=== PATIENT | female | born 1950 | race Caucasian/White ===

== ENCOUNTER 2020-06-28 14:56 | Outpatient (CLI) | payer MEDICARE, SELFPAY ==
--- NOTE | ~2020-06-28 | MM_ITS ---
EXAMINATION: MM screening arleth BI w [facility]ia HISTORY: Screening TECHNIQUE: Craniocaudal and mediolateral oblique 3-D tomosynthesis images were obtained and synthetic 2-D images were generated. CAD analysis was submitted and interpreted. COMPARISON: 05/28/2017 BREAST PARENCHYMAL COMPOSITION: There are scattered areas of fibroglandular density. FINDINGS: There is no evidence of suspicious mass, calcification, or architectural distortion to sugg est malignancy in either breast. There has been no suspicious interval change. IMPRESSION: 1. No mammographic evidence of malignancy. 2. Recommend routine screening mammography in one year. BI-RADS Category 1: Negative Reviewed, dictated and finalized at location D. ER AND TRIMMER
== END 2020-06-28 14:57 | disposition home or self-care (01) ==
PROVIDERS: PCP Physician Assistant; Visit Provider Physician Assistant
DX: Z12.31 Encounter for screening mammogram for malignant neoplasm of breast (principal)
CPT/HCPCS: 77063; 77067

== ENCOUNTER → 2020-07-03 10:21 | Outpatient (CLI) | payer MEDICARE, SELFPAY ==
--- NOTE | ~2020-07-03 | XR_ITS ---
EXAMINATION: HAND-ANDREA ARTHRITIS 3+VIEWS DATE: 07/03/2020 11:41 INDICATION: Osteoarthritis. Rheumatoid arthritis. TECHNIQUE: Posteroanterior, lateral, and oblique views of the left and of the right hands as well as a ballcatchers view of both hands were obtained. COMPARISON: Left wrist radiographs dated 06/25/2018 FINDINGS: Diffuse osteopenia. Again seen is a left proximal row carpectomy with resection of the trapezium, allison ate and proximal pole of the scaphoid. No fractures. Moderate severity polyarticular osteoarthritis a t the bilateral hands and wrists characterized by nonuniform joint space narrowing and marginal osteo phytes. This involves the bilateral triscaphe, first carpometacarpal and multiple metacarpophalangeal and interphalangeal joints. Bilaterally there is palmar subluxation at the second metacarpophalangea l joints, mild on the left and moderate severity on the right. Periarticular erosion at the medial he ad of the left third metacarpal, at the dorsal/radial side of the proximal pole of the scaphoid and a t the tip of the left ulnar styloid process. Subarticular lucencies with thin sclerotic margins on th e right at the dorsal aspect of the distal right radius, proximal aspect of the triquetrum and distal pole of the scaphoid which could represent either degenerative subchondral cysts or additional chron ic erosions. Soft tissue swelling about the wrist most prominent along the region of the extensor car pi ulnaris tendon and surrounding a few of the bilateral metacarpophalangeal and interphalangeal join ts. IMPRESSION: 1. Moderate polyarticular osteoarthritis with a few periarticular erosions as detailed above which co uld be due to superimposed rheumatoid arthritis for which patient has a reported history. 2. Status post left proximal row carpectomy. Reviewed, dictated and finalized at location A. INSPECTOR IMPRESSION: 1. Moderate polyarticular osteoarthritis with a few periarticular erosions as d etailed above which could be due to superimposed rheumatoid arthritis for which patient has a reported history. 2. Status post left proximal row carpectomy.
--- NOTE | ~2020-07-03 | XR_ITS ---
EXAMINATION: XR foot RT standing 2V DATE: 07/03/2020 11:41 INDICATION: Rheumatoid arthritis with rheumatoid factor. TECHNIQUE: 2 views of right foot standing were obtained. COMPARISON: Right foot radiographs 10/14/2007 FINDINGS: Bone alignment is normal. No acute fracture. There is likely an old healed fracture deformi ty of calcaneus with decreased Boehler's angle. There is an old healed fracture of posterior malleolu s of distal tibia. There is diffuse osteopenia. There is mild osteoarthritis of first-third metatarso phalangeal joints and many of the midfoot joints and interphalangeal joints. There is an enthesophyte at posterior aspect of calcaneal tuberosity. IMPRESSION: 1. Polyarticular osteoarthritis. Reviewed, dictated and finalized at location B. UCTION PLANNING MANAGER
--- NOTE | ~2020-07-03 | XR_ITS ---
EXAMINATION: XR foot LT standing 2V DATE: 07/03/2020 11:41 INDICATION: Rheumatoid arthritis with rheumatoid factor. TECHNIQUE: 2 views of left foot standing were obtained. COMPARISON: None. FINDINGS: Bone alignment is normal. No fracture. There is diffuse osteopenia. There is mild osteoarth ritis of second and third metatarsophalangeal joints and many of the midfoot joints and interphalange al joints. There is an enthesophyte at plantar aspect of calcaneal tuberosity. IMPRESSION: 1. Polyarticular osteoarthritis. Reviewed, dictated and finalized at location B. MITE CARTRIDGE CRIMPER
--- NOTE | ~2020-07-03 | XR_ITS ---
EXAMINATION: XR chest 2V DATE: 07/03/2020 11:41 INDICATION: Rheumatoid arthritis with rheumatoid factor TECHNIQUE: Frontal and lateral views of the chest were obtained. COMPARISON: Chest 2 views 06/25/2018, chest CT 05/06/2018 FINDINGS: A calcified left lung nodule is consistent with old granulomatous disease. No pleural effus ion or pneumothorax. The heart size is normal. There are multiple chronic compression fractures in th e spine. IMPRESSION: 1. No acute cardiopulmonary disease. Reviewed, dictated and finalized at location B. ER CONTROL SUPERVISOR
== END ==
PROVIDERS: PCP Physician Assistant; Visit Provider Internal Medicine
DX: M06.871 Other specified rheumatoid arthritis, right ankle and foot (principal); R91.1 Solitary pulmonary nodule; M06.872 Other specified rheumatoid arthritis, left ankle and foot; S63.212A Subluxation of metacarpophalangeal joint of right middle finger, initial encounter; S63.211A Subluxation of metacarpophalangeal joint of left index finger, initial encounter; M06.842 Other specified rheumatoid arthritis, left hand; M06.841 Other specified rheumatoid arthritis, right hand
CPT/HCPCS: 71046; 73130; 73620

== ENCOUNTER → 2020-07-05 13:53 | Outpatient (CLI) | payer MEDICARE, SELFPAY ==
--- NOTE | ~2020-07-05 | MR_ITS ---
EXAMINATION: MR hand RT wo/w con DATE: 07/05/2020 16:35 INDICATION: Rheumatoid arthritis presenting with right hand pain TECHNIQUE: Magnetic resonance imaging (MRI) of the right hand was performed without and with 19 mL Mu ltihance intravenous contrast. Sequences included axial T1-weighted FSE, axial T2-weighted FS FSE, co yassine T1-weighted FSE, coronal T2-weighted FS FSE, sagittal T1-weighted FSE and sagittal T2-weighted FS FSE. Precontrast axial T1-weighted FS FSE and post contrast axial and coronal T1-weighted FS FSE w ere also obtained. COMPARISON: Radiographs dated 07/03/2020 FINDINGS: Portion of the proximal carpal row are excluded from the [id number]. There is prominent thickened and enhancing tenosynovitis extending along the flexor tendon sheaths of the second and fourth digits beginning proximally at the level of the metatarsal necks and extending distally to at least the bas e of the fourth middle phalanx and in the second digit to the level of the distal interphalangeal sumi nt. Additional thickened and enhancing tenosynovitis surrounding the extensor carpi radialis longus l ongus and brevis tendons the extensor carpi ulnaris tendon and the extensor digitorum longus and mini mi tendons to the fifth digit. In each case the enhancing tenosynovitis begins proximal to the field- of-view which is located at the level of the proximal carpal row and which extends distally to the in sertion of the extensor carpi radialis and there is tendons and at least the level of the mid diaphys is of the fifth metacarpal. There is moderate tendinopathy and longitudinal split tearing of the flex or digitorum longus tendons to the second fourth digits at the level of the proximal phalanges. As we ll as of the extensor carpi ulnaris and extensor carpi radialis longus tendons at the level of the pr oximal carpus. There is also prominent enhancing synovitis at the second and third metacarpophalangeal joints and mo re subtly at the second proximal and distal interphalangeal joints, the third proximal interphalangea l joint and the fifth proximal and distal interphalangeal joints. There is a small enhancing erosion at the radial aspect of the head of the fourth metacarpal. There is suggestion of enhancing synovitis and associated erosion of the pisiform and triquetrum however assessment for enhancement is signific antly limited at this location by field inhomogeneity at the margins of the [id number] saturation at the margins of the field of imaging resulting in failure of fat saturation. This may be also relat ed to nonvisualized tenosynovitis of the extensor carpi ulnaris tendon given the prominent soft tissu e swelling along the region of the extensor carpi ulnaris groove on the prior radiographs. Mild palmar subluxation at the second, third and fifth metacarpophalangeal joints. Moderate polyartic ular osteoarthritis as previously detailed most prominent at the second metacarpophalangeal joint and at the triscaphe and first carpal metacarpal joints. IMPRESSION: 1. Prominent enhancing tenosynovitis involving multiple flexor and extensor tendon sheaths, joint annabelle tered enhancing synovitis at the pisotriquetral and multiple metacarpophalangeal and interphalangeal joints with a few scattered erosions. Findings would be consistent with provided history of rheumatoi d arthritis. Differential would include less likely severe crystalline arthropathy. Infection would a lso be considered highly unlikely given the geographic separation of the multiple affected regions. 2. Moderate polyarticular osteoarthritis with severity as well as the associated subluxations of some of the metacarpophalangeal joints likely secondary to the underlying rheumatoid arthritis. 3. Likely secondary tendinopathy and longitudinal split tears along most of the flexor and extensor t endons surrounded by the tenosynovitis.
[2020-07-05 15:17] LABS: Estimated Glomerular Filt Rate 55
== END ==
PROVIDERS: PCP Physician Assistant; Visit Provider Internal Medicine
DX: M05.749 Rheumatoid arthritis with rheumatoid factor of unspecified hand without organ or systems involvement (principal); M19.041 Primary osteoarthritis, right hand
CPT/HCPCS: 73220; A9577

== ENCOUNTER → 2021-06-11 10:35 | Outpatient (CLI) | payer MEDICARE, MEDICAID, SELFPAY ==
--- NOTE | ~2021-06-11 | XR_ITS ---
XR chest 2V 06/11/2021 11:05 Indication: Encounter for screening for viral disease. Rheumatoid arthritis. Procedure: 2 view chest Comparison: Comparison to multiple prior studies sequentially, with oldest reviewed study dated 11/13. Findings: Heart size normal. There is chronic diffuse bilateral interstitial infiltrates. There are m ultiple lower thoracic wedge compression fractures no pleural effusion or pneumothorax. Calcified gra nuloma left apex. There is an old left humeral neck fracture with nonunion. Impression: 1: Chronic interstitial infiltrates bilaterally which may represent chronic interstitial fibrosis, in terstitial edema or atypical pneumonia. Reviewed, dictated and finalized at location B. Impression: 1: Chronic interstitial infiltrates bilaterally which may represent chronic int erstitial fibrosis, interstitial edema or atypical pneumonia.
== END ==
PROVIDERS: PCP Physician Assistant; Visit Provider Internal Medicine
DX: Z11.59 Encounter for screening for other viral diseases (principal); M06.9 Rheumatoid arthritis, unspecified; R91.8 Other nonspecific abnormal finding of lung field
CPT/HCPCS: 71046

== ENCOUNTER 2021-07-02 13:34 | Outpatient (CLI) | payer MEDICARE, MEDICAID, SELFPAY ==
--- NOTE | ~2021-07-02 | DEXA_ITS ---
Bone Density Report Name: Gabriela Chavez Age: 71 Sex: Female Ethnicity: White Date of : 1950 Indication: postmenopausal; height loss; prior fracture; rheumatoid arthritis; Referring Provider: Ponce, Cole Study: Bone densitometry was performed. Exam Date: July 02, 2021 Accession number: [id number] Bone Density: Region BMD T-score Z-score Classification AP Spine (L1-L4) 1.135 0.8 3.1 Normal Femoral Neck (Left) 0.567 -2.5 -0.6 Osteoporosis Total Hip (Left) 0.825 -1.0 0.7 Normal World Health Organization criteria for BMD impression classify patients as: Normal (T-score at or above -1.0), Osteopenia (T-score between -1.0 and -2.5), or Osteoporosis (T-score at or below -2.5). 10-year Fracture Risk: FRAX not reported because: Some T-score for Spine Total or Hip Total or Femoral Neck at or below -2.5 Prior hip or vertebral fracture Previous Exams: Region Exam Age BMD T-score BMD Change BMD Change Date g/cm2 vs Baseline vs Previous AP Spine(L1-L4) 07/02/2021 71 1.135 0.8 0.119(11.7%)* 0.119(11.7%)* 05/28/2017 67 1.015 -0.3 Total Hip(Left) 07/02/2021 71 0.825 -1.0 0.002(0.2%) 0.002(0.2%) 05/28/2017 67 0.823 -1.0 *Denotes significance at 95% confidence level, LSC for AP Spine = 0.022 g/cm2, LSC for Total Hip = 0.027 g/cm2 Clinical Information Provided by Patient: Have had a previous hip or vertebral fracture Has had a low trauma fracture Has rheumatoid arthritis Has used the following medications: Actonel (i.e. risedronate), Vitamin D, Calcium Patient maximum height was 66 Menopause Age: 38 No regular weight bearing exercise Does not regularly consume dairy products Drinks caffeinated beverages Onset of menses at age 12 Number of children 0 Impression: The patient has established osteoporosis, based on the Left Femoral Neck T-score and the existence of a prior fracture. The patient has risk factors, including: previous fracture. No significant bone loss was observed. Discussion: HIGH RISK OF FRACTURE. BONE DENSITY IS UNDESIRABLY LOW AT ONE OR MORE SKELETAL SITES, CONSISTENT WITH POSTMENOPAUSAL OSTEOPOROSIS. This patient's lowest T-score, in a patient who has previously fractured, meets the World Health Organization's (WHO) criteria for severe osteoporosis. In untreated patients, the risk of osteoporotic fracture increases approximately two-fold for each 1.0 SD decrease in T-score. Low bone density is not the only risk factor for fracture; also consider factors such as patient's age, frailty or po
--- NOTE | ~2021-07-02 | MM_ITS ---
EXAMINATION: MM screening arle[facility] BI w asia HISTORY: Screening mammogram TECHNIQUE: Craniocaudal and mediolateral oblique 3-D tomosynthesis images were obtained and synthetic 2-D images were generated. CAD analysis was submitted and interpreted. COMPARISON: No prior mammogram is available for comparison at this institution. BREAST PARENCHYMAL COMPOSITION: There are scattered areas of fibroglandular density. FINDINGS: There is no evidence of suspicious mass, calcification, or architectural distortion to sugg est malignancy in either breast. There has been no suspicious interval change. IMPRESSION: 1. No mammographic evidence of malignancy. 2. Recommend routine screening mammography in one year. BI-RADS Category 1: Negative Reviewed, dictated and finalized at location A. TIVE CLEANER
[2021-07-02 15:09] LABS: Basophils Percent Auto 0.4 % (0.2-1.2); Eosinophils Absolute Auto 0.1 K/mm3 (0-0.3); Eosinophils Percent Auto 1.8 % (0-4.4); Hemoglobin 13.2 g/dL (12.0-15.0); Immature Granulocyte Absolute 0.01 K/mm3 (0.00-0.031); Immature Granulocyte Percent A 0.2 % (0-0.5); Lymphocytes Absolute Auto 1.33 K/mm3 (0.9-3.2); Mean Corpuscular Hemoglobin 31.1 pg (26-34); Mean Corpuscular Volume 94.1 fl (80-100); Mean Platelet Volume 10.4 fl (7.4-10.4); Monocytes Absolute Auto 0.5 K/mm3 (0.1-0.6); Monocytes Percent Auto 9.1 % (2.6-8.5); Neutrophils Percent Auto 61.5 % (45.5-73.1); Platelet Count Result 169 k/mm3 (150-375); Red Blood Count 4.25 M/mm3 (4.2-5.4); Red Cell Distribution Width 12.9 % (11.5-14.5); White Blood Count 4.9 K/mm3 (4.5-10.0)
[2021-07-02 16:17] LABS: Add Urine Microscopic? YES; Appearance Urine Cloudy (Clear); Bacteria Urine Trace /hpf; Bilirubin Urine Negative (Negative); Blood Urine Negative (Negative); Color Urine Yellow (Yellow); Glucose Urine UA Negative (Negative); Ketones Urine Negative (Negative); Leukocyte Esterase Ur Trace LEU/UL (NEGATIVE); Mucus Urine Rare /lpf; Nitrate Urine Negative (Negative); Protein Urine 1+ mg/dL (Negative); Specific Grav Ur 1.023 (1.001-1.035); Squamous Epithelial Cell Urine Many /hpf (Few); Urobilinogen Urine Negative mg/dL (<2.0); WBC Urine 0-3 /hpf (0-3)
[2021-07-02 16:20] LABS: Alanine Aminotransferase 19 U/L (4-35); Albumin Level 4.4 g/dL (3.5-5.1); Alkaline Phosphatase 73 U/L (38-126); Anion Gap 7 mmol/L (8-16); Aspartate Amino Transferase 32 U/L (14-36); Bilirubin,Total 0.5 mg/dL (0.2-1.3); Blood Urea Nitrogen 18 mg/dL (7-17); Calcium 10.2 mg/dL (8.4-10.2); Carbon Dioxide 33 mmol/L (22-30); Chloride 98 mmol/L (98-107); Cholesterol 201 mg/dL (0-200); Estimated Glomerular Filt Rate 54; Glucose 98 mg/dL (65-110); HDL Direct 76 mg/dL; Potassium 4.2 mmol/L (3.4-5.0); Sodium 138 mmol/L (137-145); Triglycerides 83 mg/dL (<150)
[2021-07-02 16:31] LABS: LDL Cholesterol Direct 89 mg/dL
[2021-07-02 16:35] LABS: Free T4 Free Thyroxine 1.27 ng/mL (0.78-2.19)
== END 2021-07-02 13:35 | disposition home or self-care (01) ==
LOC: ANHIMG 13:39
PROVIDERS: PCP Physician Assistant; Visit Provider Physician Assistant
DX: Z12.31 Encounter for screening mammogram for malignant neoplasm of breast (principal); Z79.899 Other long term (current) drug therapy; E78.5 Hyperlipidemia, unspecified; M81.0 Age-related osteoporosis without current pathological fracture
CPT/HCPCS: 36415; 77063; 77067; 77080; 80048; 80061; 80076; 81001; 84439; 84443; 85025

== ENCOUNTER 2021-08-10 10:38 | Outpatient (CLI) | payer MEDICARE, MEDICAID, SELFPAY ==
[2021-08-10 11:52] LABS: Add Urine Microscopic? NO; Appearance Urine Clear (Clear); Bilirubin Urine Negative (Negative); Blood Urine Negative (Negative); Color Urine Yellow (Yellow); Glucose Urine UA Negative (Negative); Ketones Urine Negative (Negative); Leukocyte Esterase Ur Negative LEU/UL (NEGATIVE); Nitrate Urine Negative (Negative); Protein Urine Negative (Negative); Specific Grav Ur 1.008 (1.001-1.035); Urobilinogen Urine Negative mg/dL (<2.0)
== END 2021-08-10 10:39 | disposition home or self-care (01) ==
LOC: ANHLAB 10:41
PROVIDERS: PCP Physician Assistant; Visit Provider Physician Assistant
DX: R82.90 Unspecified abnormal findings in urine (principal)
CPT/HCPCS: 81003; 87086; 87088

== ENCOUNTER 2022-01-16 16:47 | Emergency (ER) | payer MEDICARE, MEDICAID, SELFPAY ==
--- NOTE | ~2022-01-16 | CT_ITS ---
EXAMINATION: CT brain wo con DATE: 01/16/2022 17:53 INDICATION: trauma . TECHNIQUE: Computed tomography (CT) of the head was performed without intravenous contrast. The mA wa s adjusted according to patient size. Iterative reconstruction technique was employed. The dose-lengt h product was 605.33 mGy-cm. COMPARISON: None FINDINGS: No acute intracranial hemorrhage or extra-axial fluid collection. No hydrocephalus, mass, or herniation. No acute ischemic infarct. Unremarkable dural venous sinus attenuation. No acute osseous abnormality. The aerated spaces are clear. Mild atrophy and moderate chronic white matter change. Atherosclerotic intracranial calcification. Bi lateral lens replacements. IMPRESSION: No acute intracranial process. Reviewed, dictated and finalized at location K.
--- NOTE | ~2022-01-16 | XR_ITS ---
EXAM: XR ribs RT 2V w CXR 2V DATE: 01/16/2022 18:12 HISTORY: fall TODAY, RT SIDED RIB PAIN TO LATERAL SIDE . COMPARISON: 06/11/2021. FINDINGS: No acute cardiopulmonary process. Left shoulder arthroplasty. Decreased mineralization. No acute fracture or dislocation. No lytic or blastic lesion. Joint spaces are maintained. Stable multi level thoracic vertebral body compression fractures. IMPRESSION: No acute osseous finding in the right ribs. Reviewed, dictated and finalized at location K.
[2022-01-16 16:50] VITALS: BP 138/91; PULSE 75; RESP 18; TEMP 36.4; O2SAT 100
--- NOTE | 2022-01-16 18:36 | ED.FALL ---
HPI - Fall General Chief Complaint: Fall Stated Complaint: fall, R rib pain Time Seen by Provider: 01/16/22 17:32 Source: patient Mode of arrival: EMS Limitations: no limitations History of Present Illness HPI Narrative: 71-year-old with a history of osteoporosis, rheumatoid arthritis here with complaints of fall. Patient states that she was walking in front of [employer] lost her balance and fell on the right side . She denies loss of consciousness or neck pain. Complains of right rib pain and right-sided facial pain. Denies any neck injury or hip injury. Related Data Home Medications Medication Instructions Recorded Confirmed calcium carbonate 600 mg calcium 600 mg PO DAILY 05/23/20 01/02/22 (1,500 mg) tablet (Calcium) cholecalciferol (vitamin D3) 50 50 mcg PO DAILY 05/23/20 01/02/22 mcg (2,000 unit) capsule docusate sodium 100 mg tablet 100 mg PO DAILY 05/23/20 01/02/22 folic acid 1 mg tablet 1 mg PO DAILY 05/23/20 01/02/22 ibuprofen 200 mg tablet (Advil) 200 mg PO Q8H PRN Pain 05/23/20 01/02/22 mecobalamin (vitamin B12) 1,000 1,000 mcg PO DAILY 05/23/20 01/02/22 mcg chewable tablet montelukast 10 mg tablet 10 mg PO DAILY 05/23/20 01/02/22 omeprazole 40 mg capsule,delayed 40 mg PO DAILY 05/23/20 01/02/22 release paroxetine HCl 20 mg tablet 20 mg PO DAILY 05/23/20 01/02/22 alendronate 70 mg tablet tablet PO 01/16/22 01/16/22 Allergies Allergy/AdvReac Type Severity Reaction Status Date / Time penicillin V Allergy Unknown Rash,swelli Verified 01/16/22 17:12 ng Penicillins Allergy Unknown Urticaria Verified 01/16/22 17:12 Review of Systems Review of Systems: All systems reviewed & are unremarkable except as noted in HPI and below Constitutional: Constitutional: Reports no additional constitutional complaints Eyes: Eyes: Reports no additional eye complaints ENT: Reports system reviewed and no additional complaints, except as documented Cardiovascular: Cardiovascular: Reports no additional cardiovascular complaints and Reports chest pain (on the right) Respiratory: Respiratory: Reports no additional respiratory complaints Gastrointestinal: Gastrointestinal: Reports no additional gastrointestinal complaints Musculoskeletal: Musculoskeletal: Reports no additional musculoskeletal complaints Integumentary/Breasts: Skin/Breast: Reports system reviewed and no additional complaints, except as docu Neurologic: Reports system reviewed and no additional complaints, except as documented PMFSH Past Medical History Medical History Abnormal CXR Arthritis Atypical pneumonia Fracture of vertebra due to osteoporosis with routine healing Generalized osteoarthritis of multiple sites Osteoporosis Seropositive rheumatoid arthritis of hand Surgical History Surgical History History of hip surgery History of total bilateral knee replacement Family History Family History Other Family history of arthritis Family history of malignant neoplasm Social History Social History Smoking packs per day: 1 Smoking cigarettes per day: 20.0 Years smoked: 30 Smoking pack-years: 30.00 Smoking status: Former smoker Smoking end date: 10/16/17 Alcohol intake: never Spiritual care concerns: No Exam Narrative: GENERAL: Well-appearing, well-nourished, and in no acute distress. HEAD: Normocephalic, atraumatic. a small abrasion on the right orbital area EYES: PERRLA and EOMI.. NECK: Supple. CHEST: Clear to auscultation. No respiratory distress. splinting on the right side with deep inspiration HEART: Regular rate and rhythm. No murmur heard. Normal peripheral pulses. ABDOMEN: Soft, nontender, nondistended, normal active bowel sounds. EXTREMITIES: Normal range of motion. No edema. abrasion on
== END 2022-01-16 19:02 | disposition home or self-care (01) ==
PROVIDERS: Emergency Provider Family Medicine; PCP Physician Assistant
DX: S20.211A Contusion of right front wall of thorax, initial encounter (principal); S09.90XA Unspecified injury of head, initial encounter; M05.9 Rheumatoid arthritis with rheumatoid factor, unspecified; M81.0 Age-related osteoporosis without current pathological fracture; M19.90 Unspecified osteoarthritis, unspecified site; Z87.01 Personal history of pneumonia (recurrent); Z96.653 Presence of artificial knee joint, bilateral; Z87.891 Personal history of nicotine dependence
CPT/HCPCS: 70450; 71046; 71100; 99284

== ENCOUNTER 2022-01-28 08:15 | Outpatient (CLI) | payer MEDICARE, MEDICAID, SELFPAY ==
--- NOTE | ~2022-01-28 | US_ITS ---
EXAMINATION: US arterial ankle brachial ind DATE: 01/28/2022 09:09 INDICATION: Pain, diminished sensation, diminished temperature lower extremities. Prior smoker. TECHNIQUE: Segmental pressures and plethysmographic and Doppler waveforms of the brachial and lower e xtremity arteries were obtained. COMPARISON: None. FINDINGS: Right and left brachial artery pressures of 157 mm Hg and 148 mm Hg, respectively, are concordant (no rmal difference <= 30 mmHg). The right ankle-brachial index (ALFONSO) is 0.89 (normal >= 0.9-1.0). The right great toe-brachial index (TBI) is 0.92 (normal >= 0.65). Arterial Doppler waveforms are biphasic. The left ALFONSO is 0.97. The left TBI is 0.97. Arterial Doppler waveforms are biphasic. IMPRESSION: Right and left ALFONSO is 0.89 and 0.97, respectively Right and left TBI of 0.92 and 0.97, respectively Reviewed, dictated and finalized at Location A. Reviewed, dictated and finalized at location A.
== END 2022-01-28 08:16 | disposition home or self-care (01) ==
LOC: ANHIMG 08:20
PROVIDERS: PCP Physician Assistant; Visit Provider Physician Assistant
DX: I73.9 Peripheral vascular disease, unspecified (principal)
CPT/HCPCS: 93922

== ENCOUNTER 2022-02-01 14:09 | Outpatient (CLI) | payer MEDICARE, MEDICAID, SELFPAY ==
[2022-02-01 16:17] LABS: Alanine Aminotransferase 12 U/L (6-35); Albumin Level 3.8 g/dL (3.5-5.1); Alkaline Phosphatase 84 U/L (38-126); Aspartate Amino Transferase 24 U/L (14-36); Bilirubin,Total 0.3 mg/dL (0.2-1.3); Cholesterol 178 mg/dL (0-200); HDL Direct 57 mg/dL; Triglycerides 68 mg/dL (<150)
[2022-02-01 16:28] LABS: LDL Cholesterol Direct 84 mg/dL
[2022-02-01 16:32] LABS: Free T4 Free Thyroxine 1.17 ng/mL (0.78-2.19)
== END 2022-02-01 14:10 | disposition home or self-care (01) ==
LOC: ANHLAB 14:14
PROVIDERS: PCP Physician Assistant; Visit Provider Physician Assistant
DX: E78.5 Hyperlipidemia, unspecified (principal); Z79.899 Other long term (current) drug therapy
CPT/HCPCS: 36415; 80061; 80076; 84439; 84443

== ENCOUNTER → 2022-04-26 10:34 | Outpatient (CLI) | payer MEDICARE, MEDICAID, SELFPAY ==
--- NOTE | ~2022-04-26 | XR_ITS ---
XR chest 2V DATE: 04/26/2022 10:47 INDICATION: Screening for viral diseases TECHNIQUE: 2 views COMPARISON: 01/16/2022 PA and lateral chest FINDINGS: There is focal increased density overlying the anterior aspect of the right second, third a nd fourth and fifth ribs, possibly due to fractures or costochondral junction calcification. No corre sponding lung density is noted on the lateral view. No pulmonary infiltrate or consolidation, pleural effusion or pulmonary vascular congestion or pneumo thorax is detected. Normal heart size. Aortic calcification, ectasia and tortuosity. Moderately large hiatal hernia. Left glenohumeral joint replacement. Diffuse osteopenia. There are multiple chronic compression fracture deformities of the lower thoracic spine. IMPRESSION: No active cardiopulmonary disease or significant change since 06/11/2021 Reviewed, dictated and finalized at location B.
== END ==
PROVIDERS: PCP Physician Assistant; Visit Provider Internal Medicine
DX: Z11.59 Encounter for screening for other viral diseases (principal); M06.9 Rheumatoid arthritis, unspecified
CPT/HCPCS: 71046

== ENCOUNTER → 2022-08-14 11:01 | Outpatient (CLI) | payer MEDICARE, MEDICAID, SELFPAY ==
--- NOTE | ~2022-08-14 | XR_ITS ---
XR chest 2V DATE: 08/14/2022 11:23 INDICATION: Rheumatoid arthritis with rheumatoid factor TECHNIQUE: 2 views COMPARISON: 04/26/2022 2 view chest FINDINGS: Heart size is normal. Is aortic calcification and tortuosity. The left hilum appears asymme trically prominent which is likely due to the superimposed tortuous aorta. No pulmonary infiltrate or consolidation, pleural effusion or pulmonary vascular congestion or pneumo thorax is detected. Moderately large hiatal hernia. Status post left glenohumeral joint replacement. There is diffuse osteopenia. Multiple lower thoracic compression fracture deformities are again noted, stable in appearance since 04/26/2022. IMPRESSION: No active cardiopulmonary disease Aortic calcification and tortuosity Moderately large hiatal hernia Reviewed, dictated and finalized at location B. LAY DECORATOR
== END ==
PROVIDERS: PCP Physician Assistant; Visit Provider Internal Medicine
DX: M05.749 Rheumatoid arthritis with rheumatoid factor of unspecified hand without organ or systems involvement (principal); K44.9 Diaphragmatic hernia without obstruction or gangrene
CPT/HCPCS: 71046

== ENCOUNTER 2022-11-13 14:17 | Outpatient (CLI) | payer MEDICARE, MEDICAID, SELFPAY ==
--- NOTE | ~2022-11-13 | MM_ITS ---
EXAMINATION: MM screening arleth BI w asia HISTORY: Screening TECHNIQUE: Craniocaudal and mediolateral oblique 3-D tomosynthesis images were obtained and synthetic 2-D images were generated. CAD analysis was submitted and interpreted. COMPARISON: Comparison to multiple prior studies sequentially, with oldest reviewed study dated 11/2016. BREAST PARENCHYMAL COMPOSITION: Breast composed of scattered areas of fibroglandular density FINDINGS: There is no evidence of suspicious mass, calcification, or architectural distortion to sugg est malignancy in either breast. There has been no suspicious interval change. IMPRESSION: 1. No mammographic evidence of malignancy. 2. Recommend routine screening mammography in one year. BI-RADS Category 1: Negative Reviewed, dictated and finalized at location A.
== END 2022-11-13 14:18 | disposition home or self-care (01) ==
LOC: ANHIMG 14:20
PROVIDERS: PCP Physician Assistant; Visit Provider Physician Assistant
DX: Z12.31 Encounter for screening mammogram for malignant neoplasm of breast (principal)
CPT/HCPCS: 77063; 77067

== ENCOUNTER 2023-01-21 23:13 | Emergency (ER) | payer MEDICARE, MEDICAID, SELFPAY ==
--- NOTE | ~2023-01-21 | XR_ITS ---
EXAMINATION: XR chest 2V DATE: 01/22/2023 00:02 INDICATION: Weakness. Shortness of breath. TECHNIQUE: Frontal and lateral views of the chest were obtained. COMPARISON: Chest 2 views 08/14/2022, 04/26/2022, chest CT 05/06/2018 FINDINGS: The lungs demonstrated diffuse interstitial pattern. No pleural effusion or pneumothorax. T he heart size is normal. There is a small sliding hiatal hernia. There is a left shoulder arthroplast y. There are periprosthetic lucencies. There are multiple chronic vertebral body fractures. IMPRESSION: 1. Stable chronic interstitial lung disease. 2. Small sliding hiatal hernia. 3. Total left shoulder arthroplasty with chronic periprosthetic lucencies, consistent with loosening versus infection. Reviewed, dictated and finalized at location A. IMPRESSION: 1. Stable chronic interstitial lung disease. 2. Small sliding hiatal hernia. 3. Total left shoulder arthroplasty with chronic periprosthetic lucencies, cons istent with loosening versus infection.
--- NOTE | 2023-01-21 23:22 | ECG_ITS ---
Measurements Intervals [place]ell Rate: 94 P: TX: 0 QRS: -9 QRSD: 96 T: 31 QT: 359 QTc: 450 Interpretive Statements SINUS RHYTHM ATRIAL COUPLET AND ATRIAL PREMATURE COMPLEX INCOMPLETE RIGHT BUNDLE BRANCH BLOCK MINIMAL Q WAVES- ANTEROLAT/INF LEADS BASELINE ARTIFACT- I, II, III, AVR, AVL, AVF, V2-V6 BORDERLINE ECG NO PREVIOUS ECG AVAILABLE FOR COMPARISON Electronically Signed On 01-22-2023 8:13:36 CDT by Bulmaro Stone D.O.
[2023-01-21 23:24] LABS: Glucose Point of Care 130 mg/dl (65-105)
[2023-01-21 23:29] VITALS: BP 125/92; PULSE 102; RESP 14; TEMP 37.2; O2SAT 100
[2023-01-22 00:15] LABS: Appearance Urine Clear (Clear); Bilirubin Urine Negative (Negative); Blood Urine Negative (Negative); Color Urine Yellow (Yellow); Glucose Urine UA Negative (Negative); Ketones Urine Negative (Negative); Leukocyte Esterase Ur Negative LEU/UL (Negative); Nitrate Urine Negative (Negative); Protein Urine Negative (Negative); Specific Grav Ur 1.001 (1.001-1.035); Urobilinogen Urine 0.2 mg/dL (<2.0); pH Urine 7.5 (5.0-9.0)
[2023-01-22 00:19] LABS: Add Urine Microscopic? NO
[2023-01-22 00:33] VITALS: BP 115/78; PULSE 114; RESP 20; O2SAT 100
[2023-01-22 01:26] LABS: Basophils Absolute Auto 0.1 K/mm3 (0.0-0.1); Basophils Percent Auto 0.7 % (0.2-1.2); Eosinophils Absolute Auto 0.1 K/mm3 (0-0.3); Eosinophils Percent Auto 1.3 % (0-4.4); Hematocrit 39.1 % (37.0-47.0); Hemoglobin 12.9 g/dL (12.0-15.0); Immature Granulocyte Absolute 0.03 K/mm3 (0.00-0.031); Immature Granulocyte Percent A 0.4 % (0-0.5); Lymphocytes Absolute Auto 0.68 K/mm3 (0.9-3.2); Lymphocytes Percent Auto 8.3 % (18.3-44.2); Mean Corpuscular Hemoglobin 30.4 pg (26-34); Mean Corpuscular Volume 92.2 fl (80-100); Monocytes Absolute Auto 0.7 K/mm3 (0.1-0.6); Neutrophils Absolute Auto 6.7 K/mm3 (1.3-6.7); Neutrophils Percent Auto 81.3 % (45.5-73.1); Platelet Count Result 159 k/mm3 (150-375); Red Blood Count 4.24 M/mm3 (4.2-5.4); Red Cell Distribution Width 13.4 % (11.5-14.5); White Blood Count 8.2 K/mm3 (4.5-10.0)
[2023-01-22] MEDS: SODIUM CHLORIDE 0.9% IV 1,000 ML 999 ML IV CONT (01:32)
[2023-01-22 01:35] LABS: Alanine Aminotransferase 89 U/L (6-35); Albumin Level 3.6 g/dL (3.5-5.1); Alkaline Phosphatase 133 U/L (38-126); Anion Gap 6 mmol/L (8-16); Aspartate Amino Transferase 118 U/L (14-36); Bilirubin,Total 0.6 mg/dL (0.2-1.3); Blood Urea Nitrogen 18 mg/dL (7-17); Calcium 8.7 mg/dL (8.4-10.2); Carbon Dioxide 25 mmol/L (22-30); Chloride 104 mmol/L (98-107); Estimated CRCL calculation 48 ml/min; Estimated Glomerular Filt Rate 54; Glucose 133 mg/dL (65-110); Potassium 3.8 mmol/L (3.4-5.0); Sodium 135 mmol/L (137-145)
[2023-01-22 02:02] LABS: Influenza A QL RT-PCR Negative (Negative); Influenza B QL RT-PCR Negative (Negative); SARS-CoV-2 RNA PCR Negative (Negative)
--- NOTE | 2023-01-22 02:24 | ED.NEUROSD ---
HPI - Neuro Symptoms/Deficit General Chief Complaint: Neuro Symptoms/Deficit Stated Complaint: CVA? Time Seen by Provider: 01/22/23 00:47 History of Present Illness HPI Narrative: See that patient is a 72-year-old female who presents to the ER with concerns for confusion. Patient's for member called her this evening and patient seemed confused and was talking about hot wheels. She then arrived to the house and patient seemed weaker than normal. No facial droop or lateralizing weakness. Patient had been outside over the weekend. Reports normal intake. At this time patient is alert and oriented x4. She is aware that she had a conversation about hot wheels that did not make sense and knows that this was troublesome to her family member. At this time patient has no additional complaints. It is noted that patient may have had some dribbling of urine while at the home. Related Data Home Medications Medication Instructions Recorded Confirmed calcium carbonate 600 mg calcium 600 mg PO DAILY 05/23/20 11/06/22 (1,500 mg) tablet (Calcium) cholecalciferol (vitamin D3) 50 50 mcg PO DAILY 05/23/20 11/06/22 mcg (2,000 unit) capsule docusate sodium 100 mg tablet 100 mg PO DAILY 05/23/20 11/06/22 ibuprofen 200 mg tablet (Advil) 200 mg PO Q8H PRN Pain 05/23/20 11/06/22 mecobalamin (vitamin B12) 1,000 1,000 mcg PO DAILY 05/23/20 11/06/22 mcg chewable tablet montelukast 10 mg tablet 10 mg PO DAILY 05/23/20 11/06/22 omeprazole 40 mg capsule,delayed 40 mg PO DAILY 05/23/20 11/06/22 release paroxetine HCl 20 mg tablet 20 mg PO DAILY 05/23/20 11/06/22 alendronate 70 mg tablet 70 tablet PO DAILY 01/16/22 11/06/22 loratadine 10 mg tablet 10 mg PO DAILY 10/09/22 11/06/22 oxybutynin chloride 10 mg 10 mg PO DAILY 10/09/22 11/06/22 tablet,extended release 24 hr Allergies Allergy/AdvReac Type Severity Reaction Status Date / Time penicillin V Allergy Unknown Rash,swelli Verified 11/06/22 14:28 ng Penicillins Allergy Unknown Urticaria Verified 11/06/22 14:28 Review of Systems Review of Systems: All systems reviewed & are unremarkable except as noted in HPI and below Constitutional: Constitutional: Denies chills, Denies fatigue and Denies fever(s) ENT: Denies nasal congestion and Denies sore throat Cardiovascular: Cardiovascular: Denies chest pain and Denies radiating jaw, neck or arm pain Respiratory: Respiratory: Denies cough and Denies dyspnea Gastrointestinal: Gastrointestinal: Denies abdominal pain, Denies nausea and Denies vomiting Genitourinary: Genitourinary: Denies nocturia, Denies dysuria and Reports urinary incontinence Neurologic: Reports confusion, Denies syncope, Denies focal weakness and Denies numbness PMFSH Past Medical History Medical History Abnormal CXR Arthritis Atypical pneumonia Bilateral hand pain Erythrocyte sedimentation rate (ESR) greater than or equal to 20 mm per hour Fracture of vertebra due to osteoporosis with routine healing Generalized osteoarthritis of multiple sites Osteoporosis Seropositive rheumatoid arthritis of hand Surgical History Surgical History H/O shoulder surgery History of hip surgery History of total bilateral knee replacement Family History Family History Other Family history of arthritis Family history of malignant neoplasm Social History Social History Smoking packs per day: 1 Smoking cigarettes per day: 20.0 Years smoked: 30 Smoking pack-years: 30.00 Smoking status: Former smoker Smoking end date: 10/16/17 Alcohol intake: never Spiritual care concerns: No Exam Narrative: GENERAL: Well-appearing, well-nourished, and in no acute distress. HEAD: Normocephalic, atraumatic. EYES: PERRL and EOMI. ENT: Mucous membranes moist.
== END 2023-01-22 03:36 | disposition home or self-care (01) ==
PROVIDERS: Emergency Provider Emergency Medicine; PCP Physician Assistant
DX: R41.0 Disorientation, unspecified (principal); E86.0 Dehydration; Z20.822 Contact with and (suspected) exposure to COVID-19; M05.9 Rheumatoid arthritis with rheumatoid factor, unspecified; M19.90 Unspecified osteoarthritis, unspecified site; M81.0 Age-related osteoporosis without current pathological fracture; Z87.01 Personal history of pneumonia (recurrent); Z96.653 Presence of artificial knee joint, bilateral; Z87.891 Personal history of nicotine dependence
CPT/HCPCS: 36415; 71046; 80053; 81003; 82948; 85025; 87636; 93005; 96360; 96361; 99283; J7030

== ENCOUNTER 2023-02-05 11:30 | Outpatient (CLI) | payer MEDICARE, MEDICAID, SELFPAY ==
[2023-02-06 18:21] LABS: Cholesterol 173 mg/dL (0-200); HDL Direct 33 mg/dL; Triglycerides 108 mg/dL (<150)
[2023-02-06 18:32] LABS: LDL Cholesterol Direct 98 mg/dL
[2023-02-06 18:39] LABS: Vitamin D 25 Hydroxy 59.3 ng/mL
[2023-02-07 03:19] LABS: Hemoglobin A1C 5.2 % (<5.7)
== END 2023-02-05 11:31 | disposition home or self-care (01) ==
LOC: ANHLAB 02-06 09:22
PROVIDERS: PCP Physician Assistant; Visit Provider Physician Assistant
DX: E78.5 Hyperlipidemia, unspecified (principal); M81.0 Age-related osteoporosis without current pathological fracture; Z13.1 Encounter for screening for diabetes mellitus; Z79.899 Other long term (current) drug therapy
CPT/HCPCS: 36415; 80061; 82306; 83036; 84443

== ENCOUNTER 2023-05-20 13:24 | Outpatient (CLI) | payer MEDICARE, MEDICAID, SELFPAY ==
--- NOTE | ~2023-05-20 | PE_ITS ---
EXAMINATION: PET skull to mid thigh DATE: 05/20/2023 15:33 INDICATION: Solitary nodule of lung TECHNIQUE: Blood glucose level was 96 mg/dL. 9.815 mCi of 18-fluorodeoxyglucose (18-FDG) was administ ered i.v. Low dose computed tomography (CT) images were acquired from the base of the brain to the pr oximal thighs for attenuation correction and anatomic localization. Positron emission tomography (PET ) images were acquired in the same distribution beginning 67 minutes after injection. Images includin g fused PET/CT images were reconstructed in axial, coronal, and sagittal planes. Automated exposure c ontrol technique was employed. The dose-length product was 1150.66mGy-cm. COMPARISON: Chest CT dated 02/16/2018 FINDINGS: Head/neck: There is symmetric increased activity in the oral cavity, inguinal and palatine tonsils, parotid glan ds, submandibular glands, laryngeal muscles and ocular muscles without CT correlate, likely physiolo gic. No pathologically enlarged cervical lymphadenopathy or suspicious foci of increased FDG uptake i n the visualized head or neck. Chest: Mild emphysema. Left apical nodule along with calcified left hilar lymph nodes consistent with old gr anulomatous disease. 1.8 x 0.9 cm left upper lobe nodule with only mild FDG uptake with maximal SUV o f 3.5 which remains lower than the uptake in the liver. Peripheral groundglass opacities and irregula r septal line thickening with lower lung and right-sided predominance consistent with likely chronic interstitial lung disease. Tiny right pleural effusion. There is diffuse mild FDG uptake along the pl eura in the right hemithorax with maximal SUV of 7.7 but without evident corresponding nodularity. He art size is normal. Atherosclerotic coronary artery calcific lesion. Aortic valve calcific location. No pericardial effusion. Moderate-sized sliding-type hiatal hernia. 2.2 x 1.4 cm precarinal lymph nod e without abnormally increased FDG uptake. No other pathologically enlarged or FDG avid thoracic lymp hadenopathy. Abdomen/pelvis/proximal thighs: Physiologic renal accumulation and excretion of FDG activity in the kidneys, bladder and along portio ns of ureters. Normal degree and heterogenous pattern of increased uptake throughout the liver withou t radiologic correlate or dominant FDG avid lesion. The gallbladder and pancreas are normal. Tiny steven cification the spleen consistent with old granulomatous disease. No significant change in bilateral a drenal adenomas demonstrating characteristic low signal intensity on prior CT and measuring 1.9 cm on the right and upon the left the larger measuring 1.5 cm. There is mild increased FDG uptake at the r ight adrenal adenoma with maximal SUV of 6.6. Mild uptake scattered throughout the bowels without rad iologic correlate, also likely physiologic. No other abnormal foci of increased FDG uptake or patholo gically enlarged lymphadenopathy in the abdomen, pelvis or proximal thighs. Musculoskeletal: Left reverse right total shoulder arthroplasty with prominent FDG uptake surrounding the stem of the humeral component and prominent synovial uptake surrounding the joint space. There is osteolysis with increased lucency and cortical scalloping consistent with osteolysis either in the setting of loosen ing or infection. Additional polyarticular synovial FDG uptake at the right glenohumeral, bilateral a cromioclavicular and elbow joints as well as multiple joints at the bilateral hands and wrists consis tent with provided history of rheumatoid arthritis. Right total hip arthroplasty without abnormal FDG uptake. Small foci of mild increased uptake in the muscles along the right side of the tip of the C7 spinous processes and between the caudal tip of the left scapula and the underlying ribs, both witho ut radiologic correlate and likely physiologic. There are multiple chronic appearing compression frac tures in the thoracic and lumbar spine wi
[2023-05-20 14:04] LABS: Glucose Point of Care 96 mg/dl (65-105)
== END 2023-05-20 13:25 | disposition home or self-care (01) ==
LOC: ANHIMG 13:26
PROVIDERS: PCP Physician Assistant; Visit Provider Physician Assistant
DX: R91.1 Solitary pulmonary nodule (principal)
CPT/HCPCS: 78815; A9552

== ENCOUNTER 2023-06-03 05:31 | Outpatient (CLI) | payer MEDICARE, MEDICAID, SELFPAY ==
[2023-05-29 15:35] VITALS: BMI 39.4
--- NOTE | 2023-05-29 15:35 | PC.NURSE ---
Pre Radiology instructions Report to the outpatient mikel dobson on date _[id number]_ at time _0900_ for procedure Time: 1100_ YOU MAY BE MONITORED AT HOSPITAL FOR UP TO 4 HOURS AFTER YOUR PROCEDURE. A visitor will be allowed to accompany the patient into the hospital. You and your visitor will be asked to self-screen and do not enter if you have any COVID symptoms. A mask is OPTIONAL within the hospital. Patients are to have no food or drink 6 hours prior to procedure time Driving will be restricted after the procedure, you must have a person to drive you home. Labs will be drawn in preop area and once reviewed, you will be taken to radiology area for procedure. When the procedure is completed, you will be taken to outpatient where you will be monitored for several hours. You may have one visitor in this area. Other than holding anti-coagulants, patient may take other medication(s) as scheduled. Prior to your appointment date patients are instructed to hold anti-coagulants after discussing with ordering provider to stop. If unable to discontinue anti-coagulants please notify radiologist. ? No aspirin or warfarin (Coumadin) for 7 days prior to the procedure. ? No clopidogrel (Plavix), ticagrelor (Brilinta), prasugrel (Effient) or dabigatran (Pradaxa) for 5 days prior to the procedure. ? No rivaroxaban (Xarelto), apixaban (Eliquis), dipyridamole (Aggrenox or Persantine) or cilostazol (Pletal) for 2 days prior to the procedure. Medications to discontinue per physician: Date to take last dose: Please leave all valuables, including medications, at home the day of procedure. The hospital will not accept responsibility for valuables. Wear comfortable, loose fitting clothing.? Follow any additional instructions given to you from ordering provider. Telephone instructions given to __Patient___and asked if any additional questions and then verbalized understanding. Patient advised to call scheduling provider office or registration scheduling [phone] if any additional questions.
[2023-06-03] VITALS (11 sets, daily range): BP systolic 118–147; BP diastolic 60–83; PULSE 65–72; RESP 16–20; TEMP 36.9; O2SAT 99–100; BMI 39.5
--- NOTE | ~2023-06-03 | XR_ITS ---
EXAMINATION: XR chest 1V portable DATE: 06/03/2023 13:15 INDICATION: Left lung nodule status post percutaneous biopsy. TECHNIQUE: A single frontal view of the chest was obtained. COMPARISON: Chest single view at 12:18 PM. PET/CT 05/20/2023 FINDINGS: A calcified left lung nodule and calcified left hilar lymph nodes are consistent with old g ranulomatous disease. There is a nodule in left lung upper lobe. There is a diffuse interstitial roslyn maikel in the lungs, likely chronic lung disease. No pleural effusion or pneumothorax. The heart size is normal. There is a moderate-sized hiatal hernia. There is a left shoulder arthroplasty. IMPRESSION: 1. Nodule in left lung upper lobe which is indeterminate for primary bronchogenic carcinoma. 2. Diffuse interstitial pattern in the lungs, likely chronic lung disease. 3. Moderate-sized hiatal hernia. Reviewed, dictated and finalized at location A. IMPRESSION: 1. Nodule in left lung upper lobe which is indeterminate for primary bronchogen ic carcinoma. 2. Diffuse interstitial pattern in the lungs, likely chronic lung disease. 3. Moderate-sized hiatal hernia.
--- NOTE | ~2023-06-03 | CT_ITS ---
EXAMINATION: CT biopsy lung w/imaging DATE: 06/03/2023 12:26 INDICATION: Solitary nodule of lung. TECHNIQUE: The procedure including the risks, benefits, and alternatives and possibility of chest tub e placement were discussed with the patient. Risks discussed included infection, hemorrhage, approxim ately 1/3 risk of pneumothorax, approximately 1/10 risk of pneumothorax severe enough to warrant ches t tube placement, and rarely . The patient understood the risks and agreed to proceed. The patie nt was placed supine. The skin overlying the left chest was prepped and draped in sterile fashion. Anesthetic was administered with 1% lidocaine subcutaneously. A 19 gauge outer needle was advanced u nder CT guidance to the lesion of interest. A 20 gauge core biopsy needle was then used to obtain 3 c ore biopsy specimens. The needle was removed and the entry site was cleaned and dressed. The mA was a djusted according to patient size. Iterative reconstruction technique was employed. The dose-length p roduct was 488.33 mGy-cm. There were no immediate complications. FINDINGS: CT images demonstrate the outer needle tip adjacent to a 13 mm nodule in left lung upper lo be. There is mild emphysema. There is a small right pleural effusion. There is a moderate-sized slidi ng hiatal hernia. IMPRESSION: 1. CT-guided core needle biopsy of a 13 mm nodule in left lung upper lobe. Reviewed, dictated and finalized at location A.
--- NOTE | ~2023-06-03 | XR_ITS ---
XR chest 1V portable 06/03/2023 15:18 Indication: Post image guided lung biopsy Procedure: AP portable chest Comparison: Comparison to multiple prior studies sequentially, with oldest reviewed study dated 07/26. Findings: Borderline heart size. Left upper lobe nodule, indeterminate for bronchogenic carcinoma. Di ffuse interstitial infiltrates unchanged, possibly chronic. There is a hiatal hernia. There is a left shoulder arthroplasty. No pneumothorax identified. Impression: 1: No pneumothorax identified post biopsy. Left upper lobe nodule indeterminate for bronchogenic carc inoma. Reviewed, dictated and finalized at location L. Impression: 1: No pneumothorax identified post biopsy. Left upper lobe nodule indeterminate for bronchogenic carcinoma.
--- NOTE | ~2023-06-03 | XR_ITS ---
XR chest 1V 06/03/2023 12:22 Indication: Post lung biopsy Procedure: AP view of the chest Comparison: CT dated 06/03/2023 Findings: Heart size normal. There is atherosclerosis and ectasia of the aorta. There are coarse bila teral interstitial infiltrates peripherally. Possible small right effusion. No pneumothorax identifie d post procedure. There is a left shoulder arthroplasty. Impression: 1: Coarse bilateral interstitial infiltrates peripherally, likely chronic fibrosis. 2: No pneumothorax. Reviewed, dictated and finalized at location L. Impression: 1: Coarse bilateral interstitial infiltrates peripherally, likely chronic fibro sis. 2: No pneumothorax.
[2023-06-03 09:45] LABS: Mean Platelet Volume 10.9 fl (7.4-10.4); Platelet Count Result 198 k/mm3 (150-375)
[2023-06-03 09:57] LABS: Prothrombin Time 13.7 Seconds (11.1-14.7)
== END 2023-06-03 15:40 | disposition home or self-care (01) ==
PROVIDERS: PCP Physician Assistant; Visit Provider Radiology Diagnostic Radiology
PROC: BB24ZZZ Computerized Tomography (CT Scan) of Bilateral Lungs (ICD-10-PCS; CPT 32408; principal; 2023-06-03 11:00)
DX: R91.1 Solitary pulmonary nodule (principal); K44.9 Diaphragmatic hernia without obstruction or gangrene; R91.8 Other nonspecific abnormal finding of lung field
CPT/HCPCS: 32408; 36415; 71045; 85049; 85610; 88305; 88342

== ENCOUNTER 2023-10-24 11:32 | Emergency (ER) | payer MEDICARE, MEDICAID, SELFPAY ==
[2023-10-24] VITALS (17 sets, daily range): BP systolic 127–148; BP diastolic 66–84; PULSE 73–85; RESP 11–33; TEMP 36.6; O2SAT 93–100
--- NOTE | ~2023-10-24 | XR_ITS ---
EXAMINATION: XR chest 2V DATE: 10/24/2023 12:12 INDICATION: Chest pain. Shortness of breath. TECHNIQUE: Frontal and lateral views of the chest were obtained. COMPARISON: Chest single view 06/03/2023 FINDINGS: There is a moderate-sized left pleural effusion. There is a diffuse interstitial pattern in the lungs. There is atelectasis at the lung bases. There is a moderate-sized left pleural effusion. No pneumothorax. The heart size is normal. There is a moderate-sized hiatal hernia. There is a total left shoulder arthroplasty. There are multiple chronic compression fractures in the spine. IMPRESSION: 1. Moderate-sized left pleural effusion. 2. Mild chronic interstitial lung disease. 3. Moderate-sized hiatal hernia. Reviewed, dictated and finalized at location A. TORING AND EVALUATION ADVISOR
--- NOTE | ~2023-10-24 | CT_ITS ---
Clinical Indication: Shortness of breath, chest pain CT Scan of the Chest with Contrast: Technique: Contiguous sections were acquired throughout the chest after intravenous administration of 100 cc of Omnipaque 350. Dose reduction technique was used on this scan by utilizing automated expos ure control and iterative reconstruction technique. The dose-length product (DLP) was 905.24 mGy-cm. COMPARISON: 06/03/2023 Findings: There is no evidence of any significant mediastinal, hilar or axillary lymphadenopathy. There is no f illing defect in the pulmonary arterial tree to suggest pulmonary embolus. There is no evidence of ao rtic dissection or aneurysm. There is small to moderate left pleural effusion. There is mild emphysematous change and/or chronic i nterstitial change peripherally. Images through the upper abdomen reveal moderate hiatal hernia and stable bilateral adrenal nodules. There are compression fractures of T7, T8, T9, T10, T11, and T12. Impression: No evidence of pulmonary embolus, aortic dissection, or aortic aneurysm. [id number] left pleural effusion. Mild emphysema and/or peripheral chronic interstitial change. Numerous spinal compression fractures, as detailed above. Moderate hiatal hernia. Reviewed, dictated and finalized at [facility]. OR COMPENSATION CONSULTANT Impression: No evidence of pulmonary embolus, aortic dissection, or aortic aneurysm. [id number] left pleural effusion. Mild emphysema and/or peripheral chronic interstitial change. Numerous spinal compression fractures, as detailed above. Moderate hiatal hernia.
--- NOTE | ~2023-10-24 | US_ITS ---
EXAMINATION: US right upper quadrant DATE: 10/24/2023 13:52 INDICATION: Epigastric pain TECHNIQUE: Multiple grayscale and Doppler ultrasound images of the abdomen were obtained. COMPARISON: None FINDINGS: The pancreatic head and body are normal in appearance. The pancreatic tail is not visualized. Liver has normal echogenicity and contour, with a smooth surface. No liver lesion identified. No intrahepat ic biliary duct dilation suspected. Portal venous flow was seen in the hepatopetal, normal direction and has normal Doppler waveform. The gallbladder is normal in appearance. There is no cholelithiasis . The common bile duct measures 2 mm, which is normal. Sonographic Motta sign was reported as negati ve by the insurance consultant. IMPRESSION: 1. Normal right upper quadrant ultrasound. Reviewed, dictated and finalized at location B. SEMAKING LABORER
--- NOTE | 2023-10-24 11:38 | ECG_ITS ---
Measurements Intervals [place] Rate: 85 P: [place]: 0 QRS: -21 QRSD: 99 T: 9 QT: 386 QTc: 460 Interpretive Statements SINUS OR ECTOPIC ATRIAL RHYTHM INCOMPLETE RIGHT BUNDLE BRANCH BLOCK BASELINE ARTIFACT- I, II, III, AVR, AVL, AVF, V1-V3, V6 BORDERLINE ECG COMPARED TO ECG 01/21/2023 23:25:41 NO SIGNIFICANT CHANGES Electronically Signed On 10-24-2023 12:14:48 WEBSITE DESIGNER by Bulmaro Stone D.O.
[2023-10-24 11:56] LABS: Basophils Percent Auto 0.4 % (0.2-1.2); Eosinophils Absolute Auto 0.1 K/mm3 (0-0.3); Eosinophils Percent Auto 2.2 % (0-4.4); Hematocrit 39.5 % (37.0-47.0); Hemoglobin 12.5 g/dL (12.0-15.0); Immature Granulocyte Absolute 0.01 K/mm3 (0.00-0.031); Immature Granulocyte Percent A 0.2 % (0-0.5); Lymphocytes Absolute Auto 0.66 K/mm3 (0.9-3.2); Lymphocytes Percent Auto 14.8 % (18.3-44.2); Mean Corpuscular HGB Conc 31.6 g/dl (32-36); Mean Corpuscular Hemoglobin 29.8 pg (26-34); Mean Platelet Volume 10.5 fl (7.4-10.4); Monocytes Absolute Auto 0.3 K/mm3 (0.1-0.6); Monocytes Percent Auto 7.6 % (2.6-8.5); Neutrophils Absolute Auto 3.3 K/mm3 (1.3-6.7); Neutrophils Percent Auto 74.8 % (45.5-73.1); Platelet Count Result 196 k/mm3 (150-375); Red Cell Distribution Width 15.8 % (11.5-14.5); White Blood Count 4.5 K/mm3 (4.5-10.0)
[2023-10-24 12:07] LABS: Alanine Aminotransferase 24 U/L (6-35); Alkaline Phosphatase 89 U/L (38-126); Anion Gap 6 mmol/L (8-16); Aspartate Amino Transferase 29 U/L (14-36); Bilirubin,Total 0.5 mg/dL (0.2-1.3); Blood Urea Nitrogen 15 mg/dL (7-17); Calcium 9.2 mg/dL (8.4-10.2); Carbon Dioxide 28 mmol/L (22-30); Chloride 102 mmol/L (98-107); Estimated CRCL calculation 50 ml/min; Estimated Glomerular Filt Rate > 60; Glucose 89 mg/dL (65-110); Lipase 78 U/L (23-300); Potassium 4.1 mmol/L (3.4-5.0); Sodium 136 mmol/L (137-145)
[2023-10-24 12:09] LABS: Prothrombin Time 13.7 Seconds (11.1-14.7)
[2023-10-24 12:10] LABS: Partial Thromboplastin Time 25.9 SECONDS (22.3-36.8)
[2023-10-24 12:18] LABS: Troponin I < 0.012 ng/mL (0.000-0.034)
[2023-10-24] MEDS: KETOROLAC 15 MG/ML VIAL (*BKC) IV PUSH (12:47)
--- NOTE | 2023-10-24 12:58 | ED.GENADULT ---
HPI - General Adult General Chief complaint: Chest Pain Stated complaint: Chest pain Time Seen by Provider: 10/24/23 12:10 History of Present Illness HPI narrative: patient is a 73-year-old female who presents ER with left-sided chest and back pain. Sudden onset 1 week ago. Worse with deep breath and physical movements. 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 She has no fevers or chills or sweats. No productive cough. No hemoptysis. She has not found any alleviating factors. Related Data Home Medications Medication Instructions Recorded Confirmed calcium carbonate 600 mg calcium 600 mg PO DAILY 05/23/20 06/17/23 (1,500 mg) tablet (Calcium) ibuprofen 200 mg tablet (Advil) 200 mg PO Q8H PRN Pain 05/23/20 06/17/23 mecobalamin (vitamin B12) 1,000 1,000 mcg PO DAILY 05/23/20 06/17/23 mcg chewable tablet montelukast 10 mg tablet 10 mg PO DAILY 05/23/20 06/17/23 alendronate 70 mg tablet 70 tablet PO WEEKLY 01/16/22 06/17/23 loratadine 10 mg tablet 10 mg PO DAILY 10/09/22 06/17/23 multivitamin 1 tablet PO DAILY 05/29/23 06/17/23 paroxetine HCl 30 mg tablet 30 mg PO DAILY 05/29/23 06/17/23 Allergies Allergy/AdvReac Type Severity Reaction Status Date / Time penicillin V Allergy Unknown Rash,swelli Verified 10/24/23 11:52 ng Penicillins Allergy Unknown Urticaria Verified 10/24/23 11:52 Review of Systems Review of Systems: All systems reviewed & are unremarkable except as noted in HPI and below Constitutional: Constitutional: Reports no additional constitutional complaints ENT: Reports system reviewed and no additional complaints, except as documented Cardiovascular: Cardiovascular: Reports chest pain, Denies rapid heart rate and Reports radiating jaw, neck or arm pain Respiratory: Respiratory: Denies chest congestion, Denies cough, Reports dyspnea and Denies wheezing Gastrointestinal: Gastrointestinal: Reports no additional gastrointestinal complaints Genitourinary: Genitourinary: Reports no additional female genitourinary complaints Musculoskeletal: Musculoskeletal: Reports no additional musculoskeletal complaints PMFSH Past Medical History Medical History Abnormal CXR Arthritis Atypical pneumonia Bilateral hand pain Erythrocyte sedimentation rate (ESR) greater than or equal to 20 mm per hour Fracture of vertebra due to osteoporosis with routine healing Generalized osteoarthritis of multiple sites Interstitial lung disease Osteoporosis Seropositive rheumatoid arthritis of hand Surgical History Surgical History H/O shoulder surgery History of hip surgery History of total bilateral knee replacement Family History Family History Other Family history of arthritis Family history of malignant neoplasm Social History Social History Smoking packs per day: 1 Smoking cigarettes per day: 20.0 Years smoked: 30 Smoking pack-years: 30.00 Smoking status: Former smoker Smoking end date: 10/16/17 Alcohol intake: never Substance use: never Substance use type: does not use Lack of Transportation: No Lack of Food: Never True Current Housing: I Have Housing Concerned About Future Housing: No Difficulty Paying Gas/Electric Bills: No Difficulty Paying for Meds: No Currently Unemployed: No Education: Decline to Answer Difficulty w/ Childcare or Family Care: No Living arrangements: with family Occupation/Education: retired Gender identity (if verbalized by the patient): Female Spiritual care concerns: No Exam Narrative: GENERAL: Well-appearing, well-nourished, and in no acute distress. HEAD: Normocephalic, atraumatic. ENT: Mucous membranes moist.
--- NOTE | 2023-10-24 14:46 | ECG_ITS ---
Measurements Intervals [place] Rate: 77 P: -6 [place]: 202 QRS: -16 QRSD: 101 T: 9 QT: 422 QTc: 479 Interpretive Statements SINUS RHYTHM INCOMPLETE RIGHT BUNDLE BRANCH BLOCK BORDERLINE T WAVE ABNORMALITY- INFERIOR LEADS BASELINE ARTIFACT- I, AVR, AVL, AVF, V2, V5 BORDERLINE ECG COMPARED TO ECG 10/24/2023 11:42:00 SINUS RHYTHM NOW PRESENT Electronically Signed On 10-24-2023 15:16:22 ASSISTANT IN NURSING by Bulmaro Stone D.O.
[2023-10-24 15:16] LABS: Troponin I < 0.012 ng/mL (0.000-0.034)
== END 2023-10-24 15:39 | disposition home or self-care (01) ==
PROVIDERS: Emergency Medicine; Emergency Provider Emergency Medicine; PCP Physician Assistant
DX: J90 Pleural effusion, not elsewhere classified (principal); J84.9 Interstitial pulmonary disease, unspecified; M19.90 Unspecified osteoarthritis, unspecified site; M81.0 Age-related osteoporosis without current pathological fracture; Z96.653 Presence of artificial knee joint, bilateral; Z87.01 Personal history of pneumonia (recurrent); Z87.891 Personal history of nicotine dependence; K44.9 Diaphragmatic hernia without obstruction or gangrene; I45.10 Unspecified right bundle-branch block; R94.31 Abnormal electrocardiogram [ECG] [EKG]; M48.54XA Collapsed vertebra, not elsewhere classified, thoracic region, initial encounter for fracture
CPT/HCPCS: 36415; 71046; 71275; 76705; 80053; 83690; 84484; 85025; 85610; 85730; 93005; 96374; 99284; J1885; Q9967

== ENCOUNTER 2023-11-15 10:31 | Outpatient (CLI) | payer MEDICARE, MEDICAID, SELFPAY ==
--- NOTE | ~2023-11-15 | MR_ITS ---
EXAMINATION: MR thoracic spine wo con DATE: 11/15/2023 11:44 INDICATION: Osteoporosis with current pathological fracture. Mid back pain. TECHNIQUE: Magnetic resonance imaging (MRI) of the thoracic spine was performed without intravenous c ontrast. COMPARISON: Chest CT 10/24/2023 FINDINGS: There is thoracic kyphosis. There is 10 degrees thoracolumbar levoscoliosis. There is a bur st fracture of T7 with 2/5 loss of height, edema-like marrow signal intensity, and retropulsion of mary ne 3 mm into central spinal canal. There are chronic burst fractures of T8, T9, T10, T11, and T12. Th ere is mildly decreased disc height from T7-T8 through T11-T12. There is multilevel facet joint osteo arthritis, severe at many levels. There is mild neural foraminal stenosis at multiple levels bilatera lly. The discs do not extend beyond the endplate margins. There is mild central canal stenosis at T7. The spinal cord signal intensity is normal. The conus medullaris is at L1. There is chronic elevatio n of left hemidiaphragm. There is a moderate-sized sliding hiatal hernia. There is a small left pleur al effusion. IMPRESSION: 1. Subacute T7 burst fracture, mildly worsened from 10/24/2023. 2. Mild thoracic spondylosis. 3. Thoracic kyphosis and thoracolumbar levoscoliosis. 4. Moderate-sized sliding hiatal hernia. 5. Small left pleural effusion. Reviewed, dictated and finalized at location E.
== END 2023-11-15 10:32 ==
PROVIDERS: PCP Physician Assistant; Visit Provider Pain Medicine Pain Medicine
DX: M80.08XA Age-related osteoporosis with current pathological fracture, vertebra(e), initial encounter for fracture (principal); M47.894 Other spondylosis, thoracic region; K44.9 Diaphragmatic hernia without obstruction or gangrene; J90 Pleural effusion, not elsewhere classified; S22.061D Stable burst fracture of T7-T8 vertebra, subsequent encounter for fracture with routine healing; X58.XXXD Exposure to other specified factors, subsequent encounter
CPT/HCPCS: 72146

== ENCOUNTER 2024-03-18 14:20 | Outpatient (CLI) | payer MEDICARE, MEDICAID, SELFPAY ==
--- NOTE | 2024-03-18 | ECHO_ITS ---
Patient Info Name: Gabriela Chavez Age: 73 years : 1950 Gender: Female Ht: 62 in Wt: 207 lbs BSA: 2.07 m2 HR: 75 bpm BP: 162 / 100 mmHg Heart Rhythm: Sinus Rhythm Technical Quality: Fair Exam Date: 03/18/2024 2:42 PM Exam Location: Echo Lab Patient Status: Outpatient Admit Date: 03/18/2024 Staff Ordering Physician: PonceLisset PA-C Lime Burner: iLndy Wallace RDCS Attending Provider: SharondaLisset PA-C Exam Type: CA echo doppler color flow Study Info Indications R01.1 - Cardiac murmur, unspecified Complete two-dimensional, color flow and Doppler transthoracic echocardiogram is performed. Summary 1. Left ventricular chamber dimension is normal. 2. Left ventricular systolic function is normal, estimated at 55-60%. 3. The left ventricular diastolic function is grade I diastolic dysfunction. 4. Right ventricular systolic function is normal. 5. Left atrial chamber dimension is moderately enlarged. 6. There is mild to moderate mitral valve regurgitation. 7. There is mild tricuspid valve regurgitation. Left Ventricle Left ventricular chamber dimension is normal. Left ventricular systolic function is normal, estimated at 55-60%. There is no increased left ventricular wall thickness. The left ventricular diastolic function is grade I diastolic dysfunction. Global longitudinal strain is abnormal at -16 %. Right Ventricle Right ventricular chamber dimension is normal. Right ventricular systolic function is normal. Left Atria Left atrial chamber dimension is moderately enlarged. Right Atria Right atrial chamber dimension is normal. Atrial Septum Intact interatrial septum visualized by color flow imaging. Aortic Valve The aortic valve is probable trileaflet. There is no aortic valve stenosis. There is no aortic valve regurgitation. There is mild aortic valve calcification. Pulmonic Valve The pulmonic valve is not well visualized. Mitral Valve There is mild to moderate mitral valve regurgitation. The mitral valve annulus is moderately calcified. Tricuspid Valve There is mild tricuspid valve regurgitation. Pericardium/Pleural There is no pericardial effusion. Inferior Vena Cava Normal inferior vena cava with >50% collapse upon inspiration consistent with normal right atrial pressure, 3 mmHg. Aorta The aortic root size at the sinus of Valsalva is normal. Left Ventricular Outflow Tract Name Value Normal LVOT 2D LVOT Diameter 2.0 cm LVOT Doppler LVOT Peak Gradient 5 mmHg LVOT Mean Gradient 3 mmHg LVOT VTI 22 cm LVOT VTI/AV VTI Ratio 0.7 LVOT Stroke Volume 69 ml LVOT CO 4.8 l/min LVOT CI 2.3 l/min/m2 Pulmonic Valve Name Value Normal RVOT Doppler RVOT Peak Gradient 2 mmHg P
== END 2024-03-18 14:21 | disposition home or self-care (01) ==
PROVIDERS: PCP Physician Assistant; Visit Provider Physician Assistant
DX: R01.1 Cardiac murmur, unspecified (principal)
CPT/HCPCS: 93306

== ENCOUNTER 2024-05-25 20:36 | Emergency (ER) | payer MEDICARE, MEDICAID, SELFPAY ==
--- NOTE | ~2024-05-25 | XR_ITS ---
EXAM: XR shoulder LT min 2V DATE: 05/25/2024 21:35 HISTORY: Pain status post fall . COMPARISON: 02/04/2019; CTPA 10/24/2023. FINDINGS: Osteopenia. Left shoulder arthroplasty hardware in normal alignment. Extensive perihilar h ardware lucency adjacent to the humeral component and at the bone cement interface. Linear ossific ap pearing fragment along the posterior aspect of the proximal humeral cortex. The glenoid component waldemar ears normal. Moderate degenerative change at the AC joint. IMPRESSION: Possible perihardware fracture along the posterior aspect of the proximal humeral cortex. Extensive perihilar hardware lucency is can be seen with loosening, infection, and particle disease. Reviewed, dictated and finalized at location K. IMPRESSION: Possible perihardware fracture along the posterior aspect of the pr oximal humeral cortex. Extensive perihilar hardware lucency is can be seen with loosening, infection, and particle disease.
--- NOTE | ~2024-05-25 | XR_ITS ---
EXAM: XR elbow LT 2V DATE: 05/25/2024 21:35 HISTORY: Pain status post fall . COMPARISON: X-ray elbow 09/25/2018. FINDINGS: Osteopenia. Bone cement in the humeral shaft. Oblique fracture of the olecranon with 3.5 c m distraction. Old possibly nonunited fracture of the proximal ulna, in mild deformity. Large volume joint fluid. IMPRESSION: Distracted olecranon fracture. Old possibly nonunited proximal ulnar fracture. Large elbo w joint effusion. Reviewed, dictated and finalized at location K. IMPRESSION: Distracted olecranon fracture. Old possibly nonunited proximal ulna r fracture. Large elbow joint effusion.
--- NOTE | ~2024-05-25 | CT_ITS ---
EXAMINATION: CT brain wo con DATE: 05/25/2024 21:18 INDICATION: Head injury . TECHNIQUE: Computed tomography (CT) of the head was performed without intravenous contrast. The mA wa s adjusted according to patient size. Iterative reconstruction technique was employed. The dose-lengt h product was 529.67 mGy-cm. COMPARISON: 01/16/2022. FINDINGS: No acute intracranial hemorrhage or extra-axial fluid collection. No hydrocephalus, mass, or herniation. No acute ischemic infarct. Unremarkable dural venous sinus attenuation. No acute osseous abnormality. The aerated spaces are clear. Mild atrophy and moderate chronic white matter change. Atherosclerotic intracranial calcification. Bi lateral lens replacements. IMPRESSION: No acute intracranial process. Reviewed, dictated and finalized at location K.
--- NOTE | ~2024-05-25 | XR_ITS ---
EXAM: XR wrist LT min 3V DATE: 05/25/2024 21:35 HISTORY: Pain status post fall . COMPARISON: None available. FINDINGS: Frontal view limited by artifact of projection. Osteopenia. Status post left proximal row c arpectomy. No fracture or dislocation. No lytic or blastic lesion. 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 No erosion or periosteal change. Soft tissues within normal limits. IMPRESSION: No acute osseous finding in the left wrist. Reviewed, dictated and finalized at location K.
--- NOTE | ~2024-05-25 | XR_ITS ---
EXAM: XR knee LT 3V DATE: 05/25/2024 21:35 HISTORY: Pain status post fall . COMPARISON: None available. FINDINGS: Decreased mineralization. No fracture or dislocation. No lytic or blastic lesion. Uncompli cated appearing total knee arthroplasty hardware. No erosion or periosteal change. Trace joint fluid. Scattered vascular calcifications. IMPRESSION: No acute osseous finding in the left knee. Reviewed, dictated and finalized at location K.
--- NOTE | ~2024-05-25 | CT_ITS ---
EXAMINATION: CT cervical spine wo con DATE: 05/25/2024 21:19 INDICATION: Neck pain status post fall TECHNIQUE: Computed tomography (CT) of the cervical spine was performed without intravenous contrast. Automated exposure control and iterative reconstruction technique were employed. The dose-length pro duct was 431.32 mGy-cm. COMPARISON: MR C-spine 11/08/2011. FINDINGS: Vertebral Body Alignment: Multilevel mild listheses, likely on a degenerative basis. Craniocervical and atlantoaxial alignment: Moderate degenerative change. Alignment intact. Osseous structures/fracture: No evidence of a lytic or blastic process in the visualized spine. No e vidence of acute fracture. Cervical soft tissues: The paraspinal soft tissues planes are maintained. Biapical pleural scarring. Degenerative changes: Multilevel degenerative disc disease, severe at C5-6 with there is severe bilat eral neural foraminal narrowing. Multilevel moderate facet arthropathy. IMPRESSION: No acute fracture or traumatic malalignment in the cervical spine. Reviewed, dictated and finalized at location K.
--- NOTE | ~2024-05-25 | CT_ITS ---
EXAMINATION: CT thoracic spine wo con DATE: 05/25/2024 21:19 INDICATION: Back pain status post fall . TECHNIQUE: Computed tomography (CT) of the thoracic spine was performed without intravenous contrast. Automated exposure control and iterative reconstruction technique were employed. The dose-length pro duct was 1388.40 mGy-cm. COMPARISON: CTPA 10/24/2023 FINDINGS: Exaggerated thoracic kyphosis. Interval placement of vertebroplasty cement at T7. Moderate and severe degrees of vertebral body height loss at T7 and below, unchanged. No severe central canal or neural foraminal narrowing. No fracture. Multilevel degenerative disc disease. Moderate aortic steven cification. Coronary artery, aortic valve, and mitral calcification. Bilateral adrenal adenomas. Smal l hiatal hernia. Senescent/emphysematous changes in the lungs. Small left pleural effusion. IMPRESSION: No acute fracture or traumatic malalignment detected in the thoracic spine. Reviewed, dictated and finalized at location K.
--- NOTE | ~2024-05-25 | XR_ITS ---
EXAMINATION: XR chest 1V Exam Date/Time: 05/25/2024 21:20 CDT HISTORY: Trauma Comparison: 10/24/2023; CT T-spine 05/25/2024. RESULT: Lines, tubes, and devices: Incompletely visualized left shoulder arthroplasty hardware. Lungs and pleura: Senescent/emphysematous change. Left hemidiaphragm elevation. Streaky and hazy [place] in the left lung base, with mild left costophrenic angle blunting. Cardiomediastinal silhouette: Stable. Other: No acute osseous or upper abdominal finding. Old nonunited rib fracture versus surgical bradley e in the posterior left fifth rib. IMPRESSION: Small left pleural effusion with left basilar atelectasis. Reviewed, dictated and finalized at location K.
[2024-05-25 20:38] VITALS: BP 162/77; PULSE 85; RESP 16; TEMP 36.3; O2SAT 98
--- NOTE | 2024-05-25 21:10 | ED.GENADULT ---
HPI - General Adult General Chief complaint: Extremity Injury, Upper Stated complaint: FALL, LUE INJURY Time Seen by Provider: 05/25/24 20:46 History of Present Illness HPI narrative: Patient is a 74-year-old female who presents emergency department with chief complaint of left upper extremity pain. Patient reports that she was giving herself a sponge bath and fell after she lost her balance. The patient reports she has pain in her left elbow left shoulder left wrist upper back and in her left knee. The patient does report that she has had prior knee replacements and has had a shoulder replacement in her left shoulder the patient states that pain is worse with movement EMS reported that they had noticed a possible deformity of her left elbow area Related Data Home Medications Medication Instructions Recorded Confirmed calcium carbonate (Calcium 600) 600 mg PO DAILY 05/23/20 06/17/23 ibuprofen 200 mg tablet (Advil) 200 mg PO Q8H PRN Pain 05/23/20 06/17/23 mecobalamin (vitamin B12) 1,000 1,000 mcg PO DAILY 05/23/20 06/17/23 mcg chewable tablet montelukast 10 mg tablet 10 mg PO DAILY 05/23/20 06/17/23 alendronate 70 mg tablet 70 tablet PO WEEKLY 01/16/22 06/17/23 loratadine 10 mg tablet 10 mg PO DAILY 10/09/22 06/17/23 multivitamin 1 tablet PO DAILY 05/29/23 06/17/23 paroxetine HCl 30 mg tablet 30 mg PO DAILY 05/29/23 06/17/23 Allergies Allergy/AdvReac Type Severity Reaction Status Date / Time penicillin V Allergy Unknown Rash,swelli Verified 11/28/23 10:37 ng Penicillins Allergy Unknown Urticaria Verified 11/28/23 10:37 Review of Systems Review of Systems: A 10 system review of systems was completed on the patient and is negative except for what is stated in the HPI. Nursing and ancillary documentation was reviewed. [facility] Past Medical History Medical History Abnormal CXR Arthritis Atypical pneumonia Bilateral hand pain Erythrocyte sedimentation rate (ESR) greater than or equal to 20 mm per hour Fracture of vertebra due to osteoporosis with routine healing Generalized osteoarthritis of multiple sites Interstitial lung disease Osteoporosis Seropositive rheumatoid arthritis of hand Surgical History Surgical History H/O shoulder surgery History of hip surgery History of total bilateral knee replacement Family History Family History Other Family history of arthritis Family history of malignant neoplasm Social History Social History Smoking packs per day: 1 Smoking cigarettes per day: 20.0 Years smoked: 30 Smoking pack-years: 30.00 Smoking status: Former smoker Smoking end date: 10/16/17 Alcohol intake: never Substance use: never Substance use type: does not use Lack of Transportation: No Lack of Food: Never True Current Housing: I Have Housing Concerned About Future Housing: No Difficulty Paying Gas/Electric Bills: No Difficulty Paying for Meds: No Currently Unemployed: No Education: Decline to Answer Difficulty w/ Childcare or Family Care: No Living arrangements: with family Occupation/Education: retired Gender identity (if verbalized by the patient): Female Spiritual care concerns: No Exam Narrative: GENERAL: Well-appearing, well-nourished, and in no acute distress. HEAD: Normocephalic, atraumatic. EYES: PERRLA and EOMI. ENT: Nares clear, no rhinorrhea or epistaxis. Mucous membranes moist. NECK: Supple. Mild tenderness to palpation CHEST: Clear to auscultation. No respiratory distress. HEART: Regular rate and rhythm. No murmur heard. Normal peripheral pulses. ABDOMEN: Soft, nontender, nondistended, normal active bowel sounds. Back: Her depression and her thoracic spine, no deformity EXTREM
[2024-05-25] MEDS: MORPHINE SULFATE (*CRX) 4 MG/ML INJ IV PUSH (21:39)
[2024-05-25] MEDS: ceFAZolin 2 GM/D5W 50 ML 2 GM/50 ML BAG IVPB (23:26)
[2024-05-26] VITALS (19 sets, daily range): BP systolic 109–138; BP diastolic 51–86; PULSE 73–83; RESP 12–20; O2SAT 93–100
[2024-05-26] MEDS: TETANUS,DIPHTHERIA,AC PERTUSSIS ADULT (0.5 ML) BOOSTRIX IM (00:13)
--- NOTE | 2024-05-26 01:24 | PC.NURSE ---
report given to Antionette VALENZUELA at [facility] ED. [place] ETA [id number]
[2024-05-26] MEDS: MORPHINE SULFATE (*CRX) 4 MG/ML INJ IV PUSH (03:55)
== END 2024-05-26 04:17 | disposition short-term general hospital (02) ==
PROVIDERS: Emergency Provider Emergency Medicine; PCP Physician Assistant
DX: S52.022A Displaced fracture of olecranon process without intraarticular extension of left ulna, initial encounter for closed fracture (principal); S50.312A Abrasion of left elbow, initial encounter; Z23 Encounter for immunization; J84.9 Interstitial pulmonary disease, unspecified; M81.0 Age-related osteoporosis without current pathological fracture; M05.741 Rheumatoid arthritis with rheumatoid factor of right hand without organ or systems involvement; M19.90 Unspecified osteoarthritis, unspecified site; Z87.01 Personal history of pneumonia (recurrent); Z96.653 Presence of artificial knee joint, bilateral; Z96.612 Presence of left artificial shoulder joint; Z87.891 Personal history of nicotine dependence; R93.6 Abnormal findings on diagnostic imaging of limbs; W18.39XA Other fall on same level, initial encounter
CPT/HCPCS: 70450; 71045; 72125; 72128; 73030; 73070; 73110; 73562; 90471; 90715; 96365; 96366; 96375; 96376; 99285; A4565; J0690; J2270

== ENCOUNTER 2025-01-05 13:42 | Outpatient (CLI) | payer MEDICARE, MEDICAID, SELFPAY ==
--- OUTSIDE RECORDS SUMMARY | 2025-01-05 13:50 | XMS_ITS | Clinical Summary ---
Author Organization [facility] [place] [address] Address [address] [place] [address] Care Team Providers Care Rn Medicare Name Role Phone Lisset Serra Primary Care Pr ovider Lionel Lanza MD PhD Unavailable [phone] Allergies Active Allergy Reactions Criticality Noted Date Comments Penicillins Rash,Swelling Medium 03/19/2017 Medications calcium carbonate-vitam in D3 1,250 mg (500 mg elemental)-125 unit per tabletIndicatio ns:Prevention of Vitamin D Deficiency,hypo calcemia Take 500 mg by mouth every morning 9 Active alendronate (FOSAMAX) 70 mg tabletIndicatio ns:Post-[place] lucio Osteoporosis,we dnesdays Take 1 tablet (70 mg total) by mouth every 7 days Active cyanocobalamin (Vitamin B-12) 500 mcg tabletIndicatio ns:Prevention of Vitamin B12 Deficiency Take 1 tablet (500 mcg total) by mouth every morning Active folic acid (FOLVITE) 1 mg tablet Take 1 tablet (1,000 mcg total) by mouth every morning 9 Active montelukast (SINGULAIR) 10 mg tabletIndicatio ns:Seasonal Allergic Rhinitis Take 1 tablet (10 mg total) by mouth every morning 9 Active PARoxetine (PAXIL) 30 mg tabletIndicatio ns:Anxiety with Depression Take 1 tablet (30 mg total) by mouth every morning Active bisacodyl EC (DULCOLAX EC) 5 mg EC tabletIndicatio ns:constipation Take 1 tablet (5 mg total) by mouth as needed for constipation Active methotrexate 2.5 mg tablet TAKE 10 TABLETS BY MOUTH WEEKLY 4 Active polyethylene glycol (MIRALAX) 17 gram/dose bulk powderIndicatio ns:constipation Take 17 g by mouth daily 4 Active acetaminophen (TYLENOL) 325 mg tabletIndicatio ns:Pain Take 2 tablets (650 mg total) by mouth every 6 (six) hours as needed for pain 4 Active calcium carbonate (OS-IOANA) 1,250 mg (500 mg elemental) tablet Take 1 tablet (1,250 mg total) by mouth 3 Active calcium carbonate (Tums) 500 mg (200 mg elemental calcium) chewable tablet 1 tablet/chew tab (500 mg total) [address] (Protonix) 40 mg EC tablet Take 1 tablet (40 mg total) by mouth 3 Active tuberculin (PPD) 5 tub. unit /0.1 mL injection Inject into the skin 3 Active hydroxychloroqu ine (PLAQUENIL) 200 mg tablet Take 2 tablets (400 mg total) by mouth daily 5 Active Xeljanz XR 11 mg 5 Active Linzess 72 mcg capsule Take by mouth daily Active Active Problems Problem Noted Date Diagnosed Date Acute sinusitis 07/09/2024 Candidiasis of skin 07/09/2024 Closed fracture of neck of femur 07/09/2024 Cough 07/09/2024 Deep venous thrombosis of lower extremity 2023 Degeneration of lumbar intervertebral disc 07/09 Diarrhea 07/09/2024 Edema of lower extremity 07/09/2024 Finding of above normal blood pressure 4 Hyperlipidemia 07/09/2024 Indigestion 07/09/2024 Infection of wound due to me thicillin resistant Staphylococcus aureus (MRSA) 07/09/2024 Loss of appetite 07/09/2024 Low back pain 07/09/2024 Pain in limb 07/09/2024 Posterior rhinorrhea 07/09/2024 Itching 06/02/2024 Assessment & Plan (06/02/2024 12:46 PM CDT): - 06/02: patient complained of itching, no rash noted. Discussed using soap and water to clean skin, Sarna lotion ordered. Atarax ordered x1 Possible fracture of right medial malleolus 01/2024 Assessment & Plan (05/30/2024 6:14 AM CDT): - Noted 05/29 on XR over read - examined by Ortho, no TTP - no interventions indicated - WBAT to RLE Anxiety and depression 05/27/2024 Assessment & Plan (05/27/2024 2:01 PM CDT): - Continue Paroxetine 30mg AM Discharge planning issues 05/27/2024 Assessment & Plan (06/02/2024 12:45 PM CDT): Admitted 05/26 s/p GLMF, L elbow periprosthetic fx. OR with ortho 05/27 for operative fixation. - PT/OT rec IPR - 05/31- 06/02: Patient is medically stable for discharge, SW/CM updated. Facility accepted 05/31. Discharge pending insurance authorization and bed availability Closed fracture of left upper extremity, initial encounter 05/26/2024 Assessment & Plan (05/29/2024 7:23 PM CDT): - Orthopedic consult - CT L elbow (05/26): small impacted fracture along the volar margin of the radial head, unchanged distracted, rotated olecranon fracture, chronic nonunited proximal ulnar shaft fracture - s/p left olecranon open reduction and internal fixation (05/27) - NWB LUE x 12weeks - Ortho signed off 05/28 - PT/OT rec IPR Acute traumatic pain 05/26/2024 Assessment & Plan (05/27/2024 1:59 PM CDT): - Tylenol 650mg q6h - Robaxin 500mg TID - Oxycodone 2.5mg q4h PRN Closed fracture of one rib of right side 024 Assessment & Plan (05/26/2024 2:28 PM CDT): R 7th rib fracture - IS, pep treatments - pain control Fall 05/25/2024 Heart murmur 03/14/2024 Osteoarthritis 03/14/2024 Left-sided chest pain 07/19/2023 Assessment & Plan (07/19/2023 9:42 PM GANG WORKER): Post hospitalization for left lobectomy. Patient does have a suture will remove on July 29. Patient is not given any pain medicine will start Tylenol 500 mg 3 times a day and increase gabapentin Gastroesophageal reflux dise ase with esophagitis without hemorrhage 07/19/2023 Assessment & Plan (07/19/2023 9:45 PM GANG WORKER): Patient started on pantoprazole 40 mg 1 tablet p.o. q.day and Tums to be added as well with meals. Patient to see a dietitian ACP (advance care planning) 07/19/2023 Assessment & Plan (07/19/2023 9:48 PM GANG WORKER): Patient is a full code Status post lobectomy of lung 07/17/2023 Assessment & Plan (07/21/2023 3:17 PM GANG WORKER): H/o lung nodule S/p left upper lobectomy on 07/09/2023. Completed Levaquin. Continue Tylenol gabapentin for pain. Follow up outpatient for post op-appointment 07/24/23 Assessment & Plan (07/19/2023 9:46 PM GANG WORKER): H/o lung nodule S/p left upper lobectomy on 07/09/2023. Continue Levaquin x 4 days. Continue Tylenol gabapentin for pain. Assessment & Plan (07/17/2023 12:49 PM GANG WORKER): H/o lung nodule S/p left upper lobectomy on 07/09/2023. Continue Levaquin x 4 days. Continue Tylenol gabapentin for pain. Ileus 07/11/2023 Assessment & Plan (07/15/2023 8:31 AM GANG WORKER): Ileus is improving. No nausea + BM 07/14 - supp - CLD and ADAT - restart home meds if remains asymptomatic Hypomagnesemia 07/11/2023 Assessment & Plan (05/31/2024 10:14 AM CDT): - Magnesium (05/28): 1.8mmol/L - 05/28: replete Magnesium 2g IV - Stable through 05/31, daily labs d/c Assessment & Plan (07/11/2023 11:26 AM GANG WORKER): - replete Hyponatremia 07/11/2023 Assessment & Plan (07/15/2023 8:37 AM GANG WORKER): - Na improving 138 - will hold Na tabs once tolerating PO diet - continue daily BMPs. Thrombocytopenia 07/11/2023 Assessment & Plan (07/11/2023 11:28 AM GANG WORKER): - monitor Hypocalcemia 07/11/2023 Assessment & Plan (07/11/2023 11:34 AM GANG WORKER): - home meds when able - monitor Acute blood loss anemia 07/10/2023 Assessment & Plan (05/31/2024 10:13 AM CDT): - Hgb (05/27): 12.4g/dL - 05/27: recorded EBL 150mL - Hgb (05/28): 11.4g/dL - Stable through 05/31; daily labs d/c Assessment & Plan (07/11/2023 11:25 AM GANG WORKER): EBL intra op 300ml - monitor Lung mass 07/09/2023 Class 2 obesity in adult 07/09/2023 Assessment & Plan (07/09/2023 4:07 PM GANG WORKER): - monitor Rheumatoid arthritis 07/09/2023 Assessment & Plan (07/21/2023 3:18 PM GANG WORKER): Stable. Continue Prednisone and Hydroxychloroquine. Assessment & Plan (07/19/2023 9:52 PM GANG WORKER): Patient is to continue prednisone ,folic acid and Assessment & Plan (07/17/2023 12:50 PM GANG WORKER): Continue prednisone, folic acid, and hydroxychloroquine. Stable. Assessment & Plan (07/09/2023 4:07 PM GANG WORKER): - home meds Malignant neoplasm of upper lobe of left lung Assessment & Plan (07/15/2023 8:31 AM GANG WORKER): S/P S/p left upper lobectomy, Moderate left pleural adhesions - PT/OT to see and eval, OOB - needs SNF at D/C - regular diet - BM small, x1 - restart home meds when appropriate - wean O2 - voiding w/o difficulty - cont. Vanc, cefe - aggressive pulm toilet Pulmonary nodule 07/01/2023 Abnormal biopsy result 06/16/2023 Pain of right lower extremity 12/25/2022 Foreign body in skin of foot 10/01/2022 Overactive bladder 10/01/2022 Lower urinary tract symptoms 08/14/2022 Chronic diarrhea of unknown origin 01/11/2022 Peripheral artery insufficiency 01/11/2022 Anxiety 01/10/2022 Closed fracture of upper end of humerus 10/22/19 22 Pain in joint of left shoulder 10/22/2021 Postoperative infection, initial encounter 08/12 Age-related osteoporosis wit hout current pathological fracture 08/05/2019 Difficulty in walking, not elsewhere classified 08/05/2019 Periprosthetic fracture arou nd internal prosthetic right knee joint 08/05/2019 Wound infection 07/27/2019 Essential (primary) hypertension 06/24/2019 Idiopathic peripheral autonomic neuropathy 06/24 Moderate recurrent major depression 06/24/2019 Muscle wasting and atrophy, not elsewhere classified, unspecified site 06/24/2019 Closed fracture of right fibula and tibia 2018 Abnormal findings on diagnostic imaging of lung 05/28/2018 Allergic rhinitis 05/28/2018 Asthma-chronic obstructive p ulmonary disease overlap syndrome 05/28/2018 Gastroesophageal reflux disease 05/28/2018 Interstitial lung disease 03/03/2018 Drug-induced leukopenia 03/19/2017 Resolved Problems Problem Noted Date Diagnosed Date Resolved Date Hypotension 07/09/2023 07/14/2023 Assessment & Plan (07/10/2023 10:29 AM GANG WORKER): - hypotensive post op - improved this AM - increase to epidural Encounters Date Type Department Care Team Description 12/15/2024 3:06 PM CDT - 12/15/2024 11:59 PM CDT Hospital Encounter [facility] [address] [place] [id number] Closed fracture of left upper extremity, initial encounter Discharge Disposition: Discharge to home or self care 12/15/2024 1:30 PM CDT Office Visit [facility] [address] [place] [address] for Advanced Medicine 6th [place] [address] [place] [address] Jodi Christianson MD Closed fracture of left upper extremity, initial encounter (Primary Dx) 12/15/2024 1:15 PM CDT - 12/15/2024 11:59 PM CDT Hospital Encounter [facility] ([facility]) [address] [place] [address] Jodi Christianson MD Closed fracture of left upper extremity, initial encounter Discharge Disposition: Discharge to home or self care from Last 3 Months Immunizations Immunization Administration Dates Next Due Tdap 05/26/2024(Deferred: Contraindic ation - given at OSH) Surgical History Surgery Date Site/Laterality Comments SHOULDER SURGERY 08/25/2021 - 08/24/2022 HIP FRACTURE SURGERY Right REPLACEMENT TOTAL KNEE Bilateral 2010 INCISION AND DRAINAGE 08/25/2018 - 08/24/2019 Right Right Knee INCISION AND DRAINAGE Right Right Leg PERIPHERALLY INSERTED CENTRA L CATHETER INSERTION LOBECTOMY 07/09/2023 Left MIGUELITO TIBIA FRACTURE SURGERY Medical History Medical History Date Comments MRSA (methicillin resistant staph aureus) culture positive Rheumatoid arthritis (HCC) Allergic rhinitis Depression Osteoporosis PONV (postoperative nausea and vomiting) No hx of overnight PONV Family History Medical History Relation Name Comments No Known Problems Father Heart failure Mother No Known Problems Sister 1 No Known Problems Sister 2 Anesthesia problems Neg Hx Malig Hypertension Neg Hx Malig Hyperthermia Neg Hx Pseudochol deficiency Neg Hx Relation Name Status Comments Father Mother Sister 1 Sister 2 Social History Tobacco Use Types Packs/Day Years Used Date Smoking Tobacco: Former Cigarettes 1 40 1 975 - 2015 Smokeless Tobacco: Never Tobacco Cessation:Counseling Given: Not Answered [facility] Utilities Answer Date Recorded In the past 12 months has th e electric, gas, oil, or water company threatened to shut off services in your home? No 07/16/2023 Social Connection and Isolat ion Panel [NHANES] Answer Date Recorded In a typical week, how many times do you talk on the phone with family, friends, or neighbors? More than three times a week 07/16/2023 How often do you get togethe r with friends or relatives? More than three times a week 07/16/2023 How often do you attend chur ch or church services? Never 07/16/2023 Do you belong to any clubs o r organizations such as religion groups, unions, fraternal or athletic groups, or school groups? No 07/16/2023 How often do you attend meet ings of the clubs or organizations you belong to? Never 07/16/2023 Are you , , di vorced, , never , or living with a partner? 07/16/2023 AUDIT-C Answer Date Recorded Q1: How often do you have a drink containing alc ohol? Never 07/12/2023 Average Number of Drinks Not on file 023 Frequency of Binge Drinking Not on file 06/25 Overall Financial Resource Strain (CARDIA) Answe r Date Recorded How hard is it for you to pa y for the very basics like food, housing, medical care, and heating? Not hard at all 07/16/2023 Hunger Vital Sign Answer Date Recorded Within the past 12 months, y ou worried that your food would run out before you got the money to buy more. Never true 07/16/20 23 Within the past 12 months, t he food you bought just didn't last and you didn't have money to get more. Never true 07/16/2023 PRAPARE - Transportation Answer Date Re corded In the past 12 months, has l ack of transportation kept you from medical appointments or from getting medications? No 06/26 In the past 12 months, has l ack of transportation kept you from meetings, work, or from getting things needed for daily living? No 07/16/2023 Housing Stability Vital Sign Answer Robert e Recorded In the last 12 months, was t here a time when you were not able to pay the mortgage or rent on time? No 07/16/2023 In the last 12 months, how many places have you lived? 1 07/16/2023 In the last 12 months, was t here a time when you did not have a steady place to sleep or slept in a group home (including now)? No 07/16/2023 Personal Safety Answer Date Recorded Have you ever been in or are you currently in a harmful physical or emotional relationship or is someone making you feel afraid or unsafe? Denies 05/27/2024 Comments No Sex and Gender Information Value Date Recorded Sex Assigned at Not on file Legal Sex Female 3:14 AM GANG WORKER Gender Identity Not on file Sexual Orientation Not on file Obstetrics History Last Filed Vital Signs Vital Sign Reading Time Taken Comments Blood Pressure 118/66 06/03/2024 2:19 PM CDT Pulse 84 06/03/2024 8:06 PM CDT Temperature 36.3 C (97.3 F) 06/03/2024 2:19 PM CDT Respiratory Rate 18 06/03/2024 2:19 PM CDT Oxygen Saturation 98% 06/03/2024 2:19 PM CDT Inhaled Oxygen Concentration - - Weight 97.1 kg (214 lb) 05/26/2024 8:55 PM CDT Height 157.5 cm (5' 2.01 ) 05/26/2024 8:55 PM CD T Body Mass Index 39.13 05/26/2024 8:55 PM CDT Plan of Treatment Health Maintenance Due Date Last Done Comments Depression Screening 1950 Hepatitis C Screening 1950 Osteoporosis Screening-Bone Density Scan 1948 Hepatitis B Screening 1966 Well Visit 65+ 2013 Covid-19 Vaccine (2023-09 5 season) 2024 05/21/2023, 05/21/2023, 07/25/2022, Additional history exists Influenza Vaccine (Season Ended) 2025 04/30/2023, 04/30/2023, 05/12/2022, Additional history exists Fall Risk Assessment 06/03/2025 06/03/2024 DTaP/Tdap/Td Vaccine (3 - Td or Tdap) 05/26/2034 05/26/2024, 01/31/2023 Zoster Vaccine Completed 03/27/2021, 01/24/2021 Pneumococcal vaccine 65+ Completed 02/11/2022, 06/25 Medical Devices Implanted Type Area Destination Imagination Coordinator Device Identifier Shelf Expiration Date Model / Serial / Lot [employer] /Ortho Evos Plate 2.7/3.5mm Olcrnn W/Tns 2h L 61mm [id number] - [id number] Implanted:Qty : 1 on 05/27/2024 by Park Chowdary MD at [facility] Left: Arm [employer]/Or tho [id number] 11/09/2033 [id number] / / [id number] [employer] /Ortho Evos 3.5mm 36mm Self Tap Cortex Screw Bone Sterile [id number] - [id number] Implanted:Qty : 1 on 05/27/2024 by Park Chowdary MD at [facility] Left: Arm [employer]/Or tho [id number] / / [employer] /Ortho Evos 3.5mm 28mm Self Tap Cortex Screw Bone Sterile [id number] - [id number] Implanted:Qty : 1 on 05/27/2024 by Park Chowdary MD at [facility] Left: Arm [employer]/Or tho [id number] / / [employer] /Ortho 2.7mm 4.3mm 18mm Self Tap Lock Small Bone Long Bone T8 2mm Screw [id number] - [id number] Implanted:Qty : 1 on 05/27/2024 by Park Chowdary MD at [facility] Left: Arm [employer]Or tho [id number] / / [employer] /Ortho 2.7mm 4.3mm 26mm Lock Self Retain Flat Head Long Bone Small Bone [id number] - [id number] Implanted:Qty : 1 on 05/27/2024 by Park Chowdary MD at [facility] Left: Arm [employer]Or tho [id number] / / [employer] /Ortho 2.7mm 4.3mm 50mm Lock Self Retain Flat Head Long Bone Small Bone [id number] - [id number] Implanted:Qty : 1 on 05/27/2024 by Park Chowdary MD at [facility] Left: Arm [employer]Or tho [id number] / / [employer] /Ortho 2.7mm 4.3mm 44mm Lock Self Retain Flat Head Long Bone Small Bone [id number] - [id number] Implanted:Qty : 1 on 05/27/2024 by Park Chowdary MD at [facility] Left: Arm [employer]/Or tho [id number] / / Explanted Type Area Destination Imagination Coordinator Device Identifier Shelf Expiration Date Model / Serial / Lot [employer]/ Ortho Evos Mini 2.7mm 4.5mm 80mm Self Tap Cortex T8 Screw Bone [id number] - [id number] Explanted:Qty: 1 on 05/27/2024 by Park Chowdary MD at [facility] Left: Arm [employer]/Ort ho [id number] / / Procedures Procedure Name Priority Date/Time Associated Diagnosis Comments XR SHOULDER LEFT 2 OR MORE VIEWS Schedule Routine, Read Routine (OP Routine) 12/15/2024 3:21 PM CDT Closed fracture of left upper extremity, initial encounter XR ELBOW LEFT 3 OR MORE VIEWS Schedule Routine, Read Routine (OP Routine) 12/15/2024 2:04 PM CDT Closed fracture of left upper extremity, initial encounter from Last 3 Months Results * XR Shoulder Left 2 or More Views (12/15/2024 3:21 PM CDT) Anatomical Region Laterality Modality Upper Extremities, Shoulder Left Comp uted Radiography 12/15/2024 3:30 PM CDT Impressions 12/15/2024 3:30 PM CDT Reverse cjnv-dfn-cftgbj left total shoulder arthroplasty with likely increased angulation of the glenosphere and possible fracturing of one of the glenosphere screws. Likely unchanged extensive proximal humeral osteolysis. Electronically signed by: Klaus Pierce M.D. Narrative 12/15/2024 3:30 PM CDT EXAMINATION: XR SHOULDER LEFT 2 OR MORE VIEWS HISTORY: Humerus fracture FINDINGS: 4 views of the left shoulder were performed with comparison made to 05/25/2024 there is a reverse hvpp-weg-bpfmid left total shoulder arthroplasty with increased angulation of the glenosphere and possible fracture of one of the inferior glenosphere screws. There is likely unchanged proximal humeral osteolysis extending along the bone cement interface. Acromioclavicular osteoarthritis is noted. Procedure Note Klaus Pierce MD PhD - 12/15/2024 EXAMINATION: XR SHOULDER LEFT 2 OR MORE VIEWS HISTORY: Humerus fracture FINDINGS: 4 views of the left shoulder were performed with comparison made to 05/25/2024 there is a reverse xtwm-hsp-exuawq left total shoulder arthroplasty with increased angulation of the glenosphere and possible fracture of one of the inferior glenosphere screws. There is likely unchanged proximal humeral osteolysis extending along the bone cement interface. Acromioclavicular osteoarthritis is noted. IMPRESSION: Reverse geuv-qkw-yovfbc left total shoulder arthroplasty with likely increased angulation of the glenosphere and possible fracturing of one of the glenosphere screws. Likely unchanged extensive proximal humeral osteolysis. Electronically signed by: Klaus Pierce M.D. us Benny Adkins MD IMG XR PROCEDURES Final R esult * XR Elbow Left 3 or More Views (12/15/2024 2:04 PM CDT) Anatomical Region Laterality Modality Upper Extremities, Elbow Left Compute d Radiography 12/15/2024 2:16 PM CDT Impressions 12/15/2024 2:16 PM CDT 1. Healing internally fixed intra-articular left olecranon fracture. Likely healing nondisplaced radial head fracture. 2. Unchanged ununited fracture of the proximal ulnar shaft. Electronically signed by: Klaus Pierce M.D. Narrative 12/15/2024 2:16 PM CDT EXAMINATION: XR ELBOW LEFT 3 OR MORE VIEWS HISTORY: Ulnar fracture FINDINGS: 3 views of the left elbow were performed with comparison made to 09/15/2024. There is a healing reduced and internally fixed intra-articular olecranon fracture. There is an unchanged ununited mildly displaced fracture of the proximal ulnar shaft. Intramedullary stem is partially imaged within the humerus. There is no elbow joint effusion. There is mild osteoarthritis. Radial head fracture is likely healing. Procedure Note Klaus Pierce MD PhD - 12/15/2024 EXAMINATION: XR ELBOW LEFT 3 OR MORE VIEWS HISTORY: Ulnar fracture FINDINGS: 3 views of the left elbow were performed with comparison made to 09/15/2024. There is a healing reduced and internally fixed intra-articular olecranon fracture. There is an unchanged ununited mildly displaced fracture of the proximal ulnar shaft. Intramedullary stem is partially imaged within the humerus. There is no elbow joint effusion. There is mild osteoarthritis. Radial head fracture is likely healing. IMPRESSION: 1. Healing internally fixed intra-articular left olecranon fracture. Likely healing nondisplaced radial head fracture. 2. Unchanged ununited fracture of the proximal ulnar shaft. Electronically signed by: Klaus Pierce M.D. Jodi Christianson MD IMG XR PROCEDURES Final Re sult from Last 3 Months Insurance MEDICARE AETNA MEDICARE GOLD IDPA IDPA AETNA MEDICARE GOLD Advance Directives For more information, please contact: [phone] Documents on File Type Date Recorded Patient Senior Qa Analyst Expl anation ADVANCE DIRECTIVE 07/09/2023 9:30 AM Fern r of [employer] Sales Beauty Advisor-Medical * Full Code (Latest Code Status on File) Date Activated Date Inactivated Comments 05/26/2024 9:05 PM 06/04/2024 1:44 AM * Full Code Date Activated Date Inactivated Comments 07/09/2023 3:49 PM 07/16/2023 8:07 PM Care Teams Rn Medicare Relationship Specialty Start Date End Date Lisset Serra PA PCP - General Physician Parts Product Analyst 06/17/23 Lionel Lanza MD PhD [id number] [facility], [address] [address] Medical Oncology 06/17/23
--- OUTSIDE RECORDS SUMMARY | 2025-01-05 13:50 | XMS_ITS | Referral Summary ---
Author Organization [facility] [address] Address [address] [place] [address] Care Team Providers Care Fbi Investigator Name Role Phone Lisset Serra Primary Care Pr ovider Lionel Lanza MD PhD Unavailable Encounters Date Type Department Care Team Description 12/15/2024 3:06 PM CDT - 12/15/2024 11:59 PM CDT Hospital Encounter [facility] [address] [place] [address] Closed fracture of left upper extremity, initial encounter Discharge Disposition: Discharge to home or self care 12/15/2024 1:15 PM CDT - 12/15/2024 11:59 PM CDT Hospital Encounter [facility] ([facility]) [address] [place] [address] Jodi Christianson MD Closed fracture of left upper extremity, initial encounter Discharge Disposition: Discharge to home or self care 12/15/2024 1:30 PM CDT Office Visit [facility] [address] [place] [address] Advanced Medicine 6th [place] [address] [place] [address] Jodi Christianson MD Closed fracture of left upper extremity, initial encounter (Primary Dx) from Last 3 Months Allergies Active Allergy Reactions Criticality Noted Date [...] tablets (400 mg total) by mouth daily Active Xeljanz XR 11 mg Active Linzess 72 mcg capsule Take by mouth daily Active Active Problems Problem Noted Date Diagnosed Date Acute sinusitis 07/09/2024 Candidiasis of skin 07/09/2024 Closed fracture of neck of femur 07/09/2024 Cough 07/09/2024 Deep venous thrombosis of lower extremity 2023 Degeneration of lumbar intervertebral disc 07/09 Diarrhea 07/09/2024 Edema of lower extremity 07/09/2024 Finding of above normal blood pressure Hyperlipidemia 07/09/2024 Indigestion 07/09/2024 Infection of wound [...] 07/19/2023 Assessment & Plan (07/19/2023 9:42 PM EMBROIDERER): Post hospitalization for left lobectomy. Patient does have a suture will remove on July 29. Patient is not given any pain medicine will start Tylenol 500 mg 3 times a day and increase gabapentin Gastroesophageal reflux dise ase with esophagitis without hemorrhage 07/19/2023 Assessment & Plan (07/19/2023 9:45 PM EMBROIDERER): Patient started on pantoprazole 40 mg 1 tablet p.o. q.day and Tums to be added as well with meals. Patient to see a dietitian ACP (advance care planning) 07/19/2023 Assessment & Plan (07/19/2023 9:48 PM EMBROIDERER): Patient is a full code Status post lobectomy of lung 07/17/2023 Assessment & Plan (07/21/2023 3:17 PM EMBROIDERER): H/o lung nodule S/p left upper lobectomy on 07/09/2023. Completed Levaquin. Continue Tylenol gabapentin for pain. Follow up outpatient for post op-appointment 07/24/23 Assessment & Plan (07/19/2023 9:46 PM EMBROIDERER): H/o lung nodule S/p left upper lobectomy on 07/09/2023. Continue Levaquin x 4 days. Continue Tylenol gabapentin for pain. Assessment & Plan (07/17/2023 12:49 PM EMBROIDERER): H/o lung nodule S/p left upper lobectomy on 07/09/2023. Continue Levaquin x 4 days. Continue Tylenol gabapentin for pain. Ileus 07/11/2023 Assessment & Plan (07/15/2023 8:31 AM EMBROIDERER): Ileus is improving. No nausea + BM 07/14 - supp - CLD and ADAT - restart home meds if remains asymptomatic Hypomagnesemia 07/11/2023 Assessment & Plan (05/31/2024 10:14 AM CDT): - Magnesium (05/28): 1.8mmol/L - 05/28: replete Magnesium 2g IV - Stable through 05/31, daily labs d/c Assessment & Plan (07/11/2023 11:26 AM EMBROIDERER): - replete Hyponatremia 07/11/2023 Assessment & Plan (07/15/2023 8:37 AM EMBROIDERER): - Na improving 138 - will hold Na tabs once tolerating PO diet - continue daily BMPs. Thrombocytopenia 07/11/2023 Assessment & Plan (07/11/2023 11:28 AM EMBROIDERER): - monitor Hypocalcemia 07/11/2023 Assessment & Plan (07/11/2023 11:34 AM EMBROIDERER): - home meds when able - monitor Acute blood loss anemia 07/10/2023 Assessment & Plan (05/31/2024 10:13 AM CDT): - Hgb (05/27): 12.4g/dL - 05/27: recorded EBL 150mL - Hgb (05/28): 11.4g/dL - Stable through 05/31; daily labs d/c Assessment & Plan (07/11/2023 11:25 AM EMBROIDERER): EBL intra op 300ml - monitor Lung mass 07/09/2023 Class 2 obesity in adult 07/09/2023 Assessment & Plan (07/09/2023 4:07 PM EMBROIDERER): - monitor Rheumatoid arthritis 07/09/2023 Assessment & Plan (07/21/2023 3:18 PM EMBROIDERER): Stable. Continue Prednisone and Hydroxychloroquine. Assessment & Plan (07/19/2023 9:52 PM EMBROIDERER): Patient is to continue prednisone ,folic acid and Assessment & Plan (07/17/2023 12:50 PM EMBROIDERER): Continue prednisone, folic acid, and hydroxychloroquine. Stable. Assessment & Plan (07/09/2023 4:07 PM EMBROIDERER): - home meds Malignant neoplasm of upper lobe of left lung Assessment & Plan (07/15/2023 8:31 AM EMBROIDERER): S/P S/p left upper lobectomy, Moderate left [...] fracture of upper end of humerus 10/22/19 Pain in joint of left shoulder 10/22/2021 [...] 07/14/2023 Assessment & Plan (07/10/2023 10:29 AM EMBROIDERER): - hypotensive post op - improved this AM - increase to epidural Immunizations Immunization Administration Dates Next Due Tdap 05/26/2024(Deferred: Contraindic ation - given at OSH) Social History Tobacco Use Types Packs/Day Years Used Date Smoking Tobacco: Former Cigarettes 1 40 1 975 - 2015 Smokeless Tobacco: Never Tobacco Cessation:Counseling Given: Not Answered [facility] Utilities Answer Date Recorded In the past 12 months has [employer], gas, oil, or water company threatened to [...] often do you attend chur ch or anabaptism services? Never 07/16/2023 Do you belong to any clubs o r organizations such as alevism groups, unions, fraternal or athletic groups, or [...] place to sleep or slept in a longterm (including now)? No 07/16/2023 Personal Safety Answer Date Recorded Have you ever been in or are you currently in a harmful physical or emotional relationship or is someone making you feel afraid or unsafe? Denies 05/27/2024 Comments No Sex and Gender Information Value Date Recorded Sex Assigned at Not on file Legal Sex Female 3:14 AM EMBROIDERER Gender Identity Not on file Sexual Orientation Not on file Last Filed Vital Signs Vital Sign Reading [...] 05/26/2024 8:55 PM CDT Plan of Treatment Not on file Medical Devices Implanted Type Area Foot Doctor Device Identifier Shelf Expiration Date Model / Serial / Lot [employer] /Ortho Evos Plate 2.7/3.5mm Olcrnn W/Tns 2h L 61mm [id number] - [id number] Implanted:Qty : 1 on 05/27/2024 by Park Chowdary MD at [facility] Left: Arm [employer]/Or tho [id number] 11/09/2033 [id number] / / [id number] [employer] /Ortho Evos 3.5mm 36mm Self Tap Cortex Screw Bone Sterile [id number] - [id number] Implanted:Qty : 1 on 05/27/2024 by Park Chowdary MD at [facility] Left: Arm [employer]/Or tho [id number] / / [employer] /Ortho Evos 3.5mm 28mm Self Tap Cortex Screw Bone Sterile [id number] - [id number] Implanted:Qty : 1 on 05/27/2024 by Park Chowdary MD at [facility] Left: Arm [employer]/Or tho [id number] / / [employer] /Ortho 2.7mm 4.3mm 18mm Self Tap Lock Small Bone Long Bone T8 2mm Screw [id number] - [id number] Implanted:Qty : 1 on 05/27/2024 by Park Chowdary MD at [facility] Left: Arm [employer]/Or tho [id number] / / [employer] /Ortho 2.7mm 4.3mm 26mm Lock Self Retain Flat Head Long Bone Small Bone [id number] - [id number] Implanted:Qty : 1 on 05/27/2024 by Park Chowdary MD at [facility] Left: Arm [employer]Or tho [id number] / / [employer] /Ortho 2.7mm 4.3mm 50mm Lock Self Retain Flat Head Long Bone Small Bone [id number] - [id number] Implanted:Qty : 1 on 05/27/2024 by Park Chowdary MD at [facility] Left: Arm [employer]/Or tho [id number] / / [employer] /Ortho 2.7mm 4.3mm 44mm Lock Self Retain Flat Head Long Bone Small Bone [id number] - [id number] Implanted:Qty : 1 on 05/27/2024 by Park Chowdary MD at [facility] Left: Arm [employer]/Or tho [id number] / / Explanted Type Area Foot Doctor Device Identifier Shelf Expiration Date Model / Serial / Lot [employer]/ Ortho Evos Mini 2.7mm 4.5mm 80mm Self Tap Cortex T8 Screw Bone [id number] - [id number] Explanted:Qty: 1 on 05/27/2024 by Park Chowdary MD at [facility] Left: Arm [employer]/Ort ho [id number] / / Procedures Procedure Name Priority Date/Time [...] CDT Impressions 12/15/2024 3:30 PM CDT Reverse eyln-ruq-aowkud left total shoulder arthroplasty with likely increased [...] made to 05/25/2024 there is a reverse jehm-ymq-lxoomp left total shoulder arthroplasty with increased angulation [...] made to 05/25/2024 there is a reverse nntg-zlh-skdizh left total shoulder arthroplasty with increased angulation of the glenosphere and possible fracture of one of the inferior glenosphere screws. There is likely unchanged proximal humeral osteolysis extending along the bone cement interface. Acromioclavicular osteoarthritis is noted. IMPRESSION: Reverse huuy-dkx-kyugpv left total shoulder arthroplasty with likely increased angulation of the glenosphere and possible fracturing of one of the glenosphere screws. Likely unchanged extensive proximal humeral osteolysis. Electronically signed by: Klaus Pierce M.D. Benny Adkins MD IMG XR PROCEDURES Final [...] 3 Months Insurance MEDICARE AETNA MEDICARE GOLD IDMO IDPA AETNA MEDICARE GOLD Advance Directives For more information, please contact: [phone] Documents on File Type Date Recorded Patient Decorating Supervisor Expl anation ADVANCE DIRECTIVE 07/09/2023 9:30 AM Fern r of [employer] Greaser Operator-Medical * Full Code (Latest Code Status on File) Date Activated Date Inactivated Comments 05/26/2024 9:05 PM 06/04/2024 1:44 AM * Full Code Date Activated Date Inactivated Comments 07/09/2023 3:49 PM 07/16/2023 8:07 PM Care Teams Fbi Investigator Relationship Specialty Start Date End Date Lisset Serra PA PCP - General Physician Fbi Investigator 06/17/23 Lionel Lanza MD PhD [address] [facility], [place] [address] Medical Oncology 06/17/23
--- OUTSIDE RECORDS SUMMARY | 2025-01-05 13:50 | XMS_ITS ---
Author Organization [facility] Care Team Providers Care Wrap Knitting Machine Operator Name Role Phone Timoteo Lazcano Unavailable Unavailable Allergies and adverse reactions Code CodeSystem Substance Reaction Severity StartDate Concern Status 7984 RXNORM Penicillin Unknown 08/25/2017 active Care Team Name Role Address Phone Organization Dates Timoteo Neno PCP [address] [place], [address], [place] (Office): : [facility] 06/24/2019 - 10/27/2019 Mental Status Section Date Assessment Total Score Description 10/27/2019 BIMS 15 cognitively int act CAM 0 No delirium ind icated PHQ-9 00 09/30/2019 BIMS 15 cognitively int act CAM 0 No delirium ind icated PHQ-9 00 Problems Problem # Description Date of onset Resolved Date Code CodeSystem Concern Status 1 AGE-RELATED OSTEOPOROSIS WITHOUT CURRENT PATHOLOGICAL FRACTURE 08/05/[address] active 2 DIFFICULTY IN WALKING, NOT ELSEWHERE CLASSIFIED 08/05/[address] active 3 METHICILLIN RESISTANT STAPHYLOCOCCUS AUREUS INFECTION THE CAUSE OF DISEASES CLASSIFIED ELSEWHERE 08/05/[address] active 4 PERIPROSTHETIC FRACTURE AROUND INTERNAL PROSTHETIC RIGHT KNEE JOINT, SUBSEQUENT ENCOUNTER 08/05/[address] active 5 ALLERGIC RHINITIS, UNSPECIFIED 06/24/[address] active 6 ESSENTIAL (PRIMARY) HYPERTENSION 06/24/[address] active 7 MAJOR DEPRESSIVE DISORDER, RECURRENT, MODERATE 06/24/[address] active 8 MUSCLE WASTING AND ATROPHY, NOT ELSEWHERE CLASSIFIED, UNSPECIFIED SITE 06/24/[address] active 9 OTHER IDIOPATHIC PERIPHERAL AUTONOMIC NEUROPATHY 06/24/[address] active 10 RHEUMATOID ARTHRITIS, UNSPECIFIED 06/24/[address] active 11 UNSPECIFIED FRACTURE OF SHAFT OF RIGHT TIBIA, SUBSEQUENT ENCOUNTER FOR CLOSED FRACTURE WITH ROUTINE HEALING 06/24/[address] active 12 UNSPECIFIED OSTEOARTHRITIS, UNSPECIFIED SITE 06/24/[address] active 13 WEAKNESS 06/24/[address] active Reason for Referral No Reasons for Referral Entered Social History Social History Observation Description Start Date End Date Code Code System Current Smoking Status Tobacco smoking consumption unknown 153999964 SNOMED CT Sex Assigned At Female 1950 56334-6 [facility] Gender Identity Vital Signs Code Code System Vitals Name Values and Units Timing Information 58954-7 [facility] Weight Xjfpj=298.4 Units=Lbs 11/2019
--- OUTSIDE RECORDS SUMMARY | 2025-01-05 13:50 | XMS_ITS | Clinical Summary ---
Author Organization [facility] Address [address] [place] [address] Care Team Providers Care Motor Patrol Operator Name Role Phone Lisset Serra Primary Care Provider [phone] Allergies Active Allergy Reactions Criticality Noted Date Comments Penicillins Swelling Low 03/19/2017 Medications methotrexate (RHEUMATREX) 2.5 mg TabletIndication s:8 2.5 mg total dose 20 mg Take 20 mg by mouth every 7 days. Active tofacitinib (XELJANZ XR) 11 mg Tablet Sustained Release 24HR Take 11 mg by mouth daily. Active hydroxychloroqui ne (PLAQUENIL) 200 mg tablet Take 200 mg by mouth 2 times daily. Active folic acid (FOLVITE) 1 mg tablet Take 1 mg by mouth daily. Active sulfaSALAzine (AZULFIDINE) 500 mg tablet Take 500 mg by mouth 2 times daily. Active HYDROcodone-acet aminophen (NORCO) 5-325 mg tablet Take 1 Tablet by mouth every 4 hours as needed for Pain, Moderate. Active montelukast (SINGULAIR) 10 mg tablet Take 10 mg by mouth daily at bedtime. Active Cholecalciferol, Vitamin D3, 2,000 unit Capsule Take 1 Tablet by mouth daily. Active cyanocobalamin (VITAMIN B-12) 500 mcg tablet Take 500 mcg by mouth daily. Active Active Problems Problem Noted Date Diagnosed Date Morbid obesity with BMI of 40.0-44.9, adult 11/2016 Drug-induced leukopenia 03/19/2017 Obesity (BMI 35.0-39.9 without comorbidity) 02/23 Tobacco use 03/19/2017 Family History Medical History Relation Name Comments Cancer Father Respiratory Disease Father Heart Disease Mother Cancer Sister 1 No Known Problems Sister 2 Relation Name Status Comments Father Mother Sister 1 Alive Sister 2 Alive Social History Tobacco Use Types Packs/Day Years Used Date Smoking Tobacco: Every Day Cigarettes 0.3 50 Tobacco Cessation:Ready to Q uit: Yes; Counseling Given: Yes Comments:1-2/day Alcohol Use Standard Drinks/Week Comments No 0 (1 standard drink = 0.6 oz pur e alcohol) Comments No Sex and Gender Information Value Date Recorded Sex Assigned at Not on file Legal Sex Female 10:28 AM CDT Gender Identity Not on file Sexual Orientation Not on file Last Filed Vital Signs Vital Sign Reading Time Taken Comments Blood Pressure 127/89 05/09/2017 11:05 AM CDT Pulse 96 05/09/2017 11:05 AM CDT Temperature 36.6 C (97.8 F) 05/09/2017 11:02 AM CDT Respiratory Rate 16 05/09/2017 11:02 AM CDT Oxygen Saturation - - Inhaled Oxygen Concentration - - Weight 111.6 kg (246 lb) 05/09/2017 11:02 AM CDT Height 165.1 cm (5' 5 ) 05/09/2017 11:02 AM CDT Body Mass Index 40.94 05/09/2017 11:02 AM CDT Plan of Treatment Health Maintenance Due Date Last Done Comments DTAP/TDAP/TD VACCINES (1 - Tdap) 1967 PNEUMOCOCCAL VACCINE 50+ YEA RS (1 of 2 - PCV) 1967 ZOSTER VACCINE (1 of 2) 1967 OSTEOPOROSIS SCREENING 05/28/2022 05/28/2017, 2013 RSV VACCINE (60+ or ) (1 - 1-dose 75+ series) 2023 INFLUENZA VACCINE (#1) 2024 COLORECTAL SCREENING Discontinued 07/07/2015, 07/07/2015, 07/07/2015, Additional history exists Colorectal Cancer Screening Discontinued Flex Sig/CT Colonography Q 5 years Discontinued 07/07/2015, 07/07/2015, 07/07/2015 FIT-DNA Q 3 years Discontinued FIT/FOBT Q 1 year Discontinued Insurance MEDICARE PART A AND B Care Teams Motor Patrol Operator Relationship Specialty Start Date End Date Lisset Serra PA PCP - General Physician Sales Consultant Residential Manager 03/07/17
--- OUTSIDE RECORDS SUMMARY | 2025-01-05 13:50 | XMS_ITS | Encounter Summary ---
Author Organization [facility] Address [address] [place] [address] Care Team Providers Care County Extension Agent Name Role Phone Lisset Light Primary Care Pr ovider Encounter Details Date Type Department Care Team (Late st Contact Info) Description 07/26/2019 Telephone [facility] [address] [place] [address] Collins Valdez MD [address] [facility] [address] [place] [address] Social History Tobacco Use Types Packs/Day Years Used Date Smoking Tobacco: Former Cigarettes Q uit: 11/2016 Smokeless Tobacco: Never Alcohol Use Standard Drinks/Week Comments Never 0 (1 standard drink = 0.6 oz pur e alcohol) AUDIT-C Answer Date Recorded Frequency of Alcohol Consumption Never 06/11/2019 Average Number of Drinks Not on file 019 Frequency of Binge Drinking Not on file 05/25 Comments No Sex and Gender Information Value Date Recorded Sex Assigned at Not on file Legal Sex Female 8:22 PM CDT Gender Identity Not on file Sexual Orientation Not on file documented as of this encounter Functional Status * Is person deaf or have serious hearing difficulty? Answer Date of Assessment Author No 06/11/2019 11:[address] * Is person blind or have serious difficulty seeing? Answer Date of Assessment Author No 06/11/2019 11:[address] * Does person have serious difficulty walking/climbing stairs? Answer Date of Assessment Author No 06/11/2019 11:[address] * Does person have difficulty dressing/bathing? Answer Date of Assessment Author No 06/11/2019 11:44 PM Nancy Davidson * Does person have difficulty doing errands alone? Answer Date of Assessment Author No 06/11/2019 11:44 PM Nancy Davidson documented as of this encounter Mental Status * Does person have difficulty concentrating/remembering/making decisions? 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
--- OUTSIDE RECORDS SUMMARY | 2025-01-05 13:50 | XMS_ITS | CONTINUITY OF CARE DOCUMENT ---
Author Name jessee hooks Address Unknown Organization [place] [facility] Address [address] [facility] [address] [place] [address] Phone [phone] Care Team Providers Care Legislative Assistant Name Role Phone Andrew Espinoza MD Unavailable Andrew Espinoza MD Unavailable MIRA RUDD Unavailable INSURANCE PROVIDERS Payer name Policy type / Coverage type [place] red democrat [employer] Medicaid 2 [id number] [employer] O O [id number]
--- OUTSIDE RECORDS SUMMARY | 2025-01-05 13:50 | XMS_ITS | Clinical Summary ---
Author Organization [facility] [employer] Address [address] [place] [address] Care Team Providers Care Floor Covering Printer Assistant Name Role Phone Lisset Light Primary Care Pr ovider Source Comments [facility],non-owned Affiliates and Associated Physician Practices is amultiple site organization consisting of ambulatory clinics and hospital sitesin [place], [place], [place] and [place]. This disclosure is being madepursuant to the Care Everywhere program and may not contain all information available regarding this patient. Last updated 18.[facility] Allergies Active Allergy Reactions Criticality Noted Date Comments Penicillins Swelling 06/11/2019 Medications * Be aware that medications may not be up to date on this document. Alwaysverify current medications with the patient. Azelastine HCl 137 MCG/SPRAY SOLN azelastine 137 mcg (0.1 %) nasal spray aerosol Active guaiFENesin-cod eine (ROBITUSSIN AC) 100-10 MG/5ML syrup codeine 10 mg-guaifenesin 100 mg/5 mL oral liquid Active cyanocobalamin (VITAMIN B-12) 500 MCG tablet Take 500 mcg by mouth once daily Active albuterol HFA (VENTOLIN HFA) 108 (90 Base) MCG/ACT inhaler Ventolin HFA 90 mcg/actuation aerosol inhaler Active alendronate (FOSAMAX) 70 MG tablet alendronate 70 mg tablet Active docusate sodium (COLACE) 100 MG capsule Take 1 capsule by mouth 2 times daily 9 Active polyethylene glycol 3350 (MIRALAX) packet Take 17 g by mouth once daily as needed for Constipation 9 Active calcium 500 MG tablet Take 1 tablet by mouth 2 times daily with morning and evening meal 9 Active oxyCODONE, immediate release, (ROXICODONE) 5 MG tablet Take 1 tablet by mouth every 6 hours as needed for Pain 12 tablet 9 Active acetaminophen (TYLENOL) 325 MG tablet Take 2 tablets by mouth every 6 hours as needed Maximum allowable Acetaminophen amount = 4 Grams (4000 mg) / 24 hours. 9 Active montelukast (SINGULAIR) 10 MG tablet Take 1 tablet by mouth once daily 9 Active PARoxetine (PAXIL) 20 MG tablet Take 1 tablet by mouth once daily 9 Active ondansetron, disintegrating, (ZOFRAN ODT) 4 MG tablet Take 1 tablet by mouth every 6 hours as needed for Nausea/Vomiting Allow tablet to dissolve on the tongue 9 Active folic acid (FOLVITE) 1 MG tablet Take 1 tablet by mouth once daily 9 Active bisacodyl EC (DULCOLAX) 5 MG tablet Take 1 tablet by mouth once daily as needed for Constipation 9 Active bisacodyl (DULCOLAX) 10 MG suppository Insert 1 suppository into the rectum once daily as needed for Constipation 9 Active omeprazole EC (PRILOSEC OTC) 20 MG tablet Take 1 tablet by mouth daily before breakfast 9 Active Vitamin D3 (CHOLECALCIFERO L) 50 MCG (2000 UT) capsule Take 1 capsule by mouth once daily 9 Active Active Problems Problem Noted Date Diagnosed Date Postoperative infection, initial encounter 08/12 Wound infection 07/27/2019 Closed fracture of right fibula and tibia 2018 Infection of wound due to me thicillin resistant Staphylococcus aureus (MRSA) Immunizations Immunization Administration Dates Next Due INFLUENZA VACCINE, ADJUVANTE D, TRIV. (FLUAD TRIVALENT; 65Y+) (AIIV3) 05/28/2019 Social History Tobacco Use Types Packs/Day Years Used Date Smoking Tobacco: Former Cigarettes Q uit: 11/2016 Smokeless Tobacco: Never Tobacco Cessation:Counseling Given: No Alcohol Use Standard Drinks/Week Comments Never 0 [...] Sign Reading Time Taken Comments Blood Pressure 132/67 08/05/2019 9:28 AM [facility] Pulse 94 08/05/2019 9:28 AM [facility] Temperature 36.6 C (97.9 F) 08/05/2019 9:28 AM [facility] Respiratory Rate 18 08/05/2019 9:28 AM [facility] Oxygen Saturation 93% 08/05/2019 9:28 AM [facility] Inhaled Oxygen Concentration 21% 07/29/2019 9 :40 AM [facility] Weight 99.8 kg (220 lb) 07/27/2019 2:47 PM [facility] Height 167.6 cm (5' 6 ) 07/27/2019 2:47 PM [facility] Body Mass Index 35.51 07/27/2019 2:47 PM [facility] Plan of Treatment Health Maintenance Due Date Last Done Comments BONE DENSITY TESTING 1950 MEDICARE AWV 12 MONTHS 1950 HEPATITIS C SCREENING 05/11/1966 DTAP/TDAP/TD VACCINES (1 - Tdap) 1967 PNEUMOCOCCAL VACCINE 50+ (1 of 1 - PCV) 1998 ZOSTER VACCINE (1 of 2) 1998 Respiratory Syncytial Virus (RSV) Vaccine Pt: or over 60 yrs (1 - 1-dose 75+ series) 2023 COVID-19 VACCINE (1 - 2023-2 5 season) 2024 DEPRESSION SCREENING 08/25/2024 INFLUENZA VACCINE (Season Ended) 2025 05/28/20 19 HEPATITIS B VACCINE Aged Out No longe r eligible based on patient's age to complete this topic HIB VACCINE Aged Out No longer eligi ble based on patient's age to complete this topic HPV VACCINE Aged Out No longer eligi ble based on patient's age to complete this topic MENINGOCOCCAL (Group B) VACC INE SHARED DECISION-MAKING Aged Out No longer eligibl e based on patient's age to complete this topic MENINGOCOCCAL GROUPS A/C/Y/W VACCINE Aged Out No longer eligible b ased on patient's age to complete this topic Medical Devices Implanted Type Area Television Engineer Device Identifier Shelf Expiration Date Model / Serial / Lot 10h Std Plate Implanted:Qty: 1 on 06/13/2019 by Collins Valdez MD at [facility] Right: Tibia [id number] / / Screw 2.7mm 70mm Ft Evos Strl Osteopenia Implanted:Qty: 1 on 06/13/2019 by Collins Valdez MD at [facility] Right: Tibia [employer] [id number] / / Description:4.7 x 70mm Osteo penia FT screw Screw 2.7mm 65mm Ft Evos Strl Osteopenia Implanted:Qty: 2 on 06/13/2019 by Collins Valdez MD at [facility] Right: Tibia [employer] [id number] / / Description:4.7 x 65mm Osteo penia FT screw Screw 3.5mm 26mm Slf-Tap Cortx Evos Strl Implanted:Qty: 2 on 06/13/2019 by Collins Valdez MD at [facility] Right: Tibia [employer] [id number] / / Description:3.5 x 26mm Corti steven screw Screw 3.5mm 24mm Slf-Tap Cortx Evos Strl Implanted:Qty: 1 on 06/13/2019 by Collins Valdez MD at [facility] Right: Tibia [employer] [id number] / / Description:3.5 x 24mm Corti steven screw Screw 3.5mm 46mm Slf-Tap Cortx Evos Strl Implanted:Qty: 1 on 06/13/2019 by Collins Valdez MD at [facility] Right: Tibia [employer] [id number] / / Description:3.5 x 46mm corti steven screw Screw 3.5mm 40mm Slf-Tap Cortx Evos Strl Implanted:Qty: 1 on 06/13/2019 by Collins Valdez MD at [facility] Right: Tibia [employer] [id number] / / Description:3.5 x 40mm corti steven screw Screw 3.5mm 44mm Slf-Tap Lck Evos Strl Implanted:Qty: 2 on 06/13/2019 by Collins Valdez MD at [facility] Right: Tibia [employer] [id number] / / Description:3.5 x 44mm Locki ng screw Screw 3.5mm 24mm Slf-Tap Cortx Evos Strl Implanted:Qty: 1 on 06/13/2019 by Collins Valdez MD at [facility] Right: Tibia [employer] [id number] / / Description:3.5 x 24mm Corti steven screw Additional Health Concerns Infection Onset Date Last Indicated MRSA 07/27/2019 07/30/2019 Insurance MEDICAID - [facility] MEDICAID - [place] MEDICARE HUMAN Advance Directives * Full Code (Latest Code Status on File) Date Activated Date Inactivated Comments 07/27/2019 2:36 PM 08/05/2019 3:56 PM * Full Code Date Activated Date Inactivated Comments 06/11/2019 11:53 PM 06/24/2019 5:45 PM * Full Code Date Activated Date Inactivated Comments 06/11/2019 10:15 PM 06/11/2019 11:53 PM Care Teams Floor Covering Printer Assistant Relationship Specialty Start Date End Date Lisset Light PA [address] [place] [id number] PCP - General Physician Labor Delivery Specialist 06/11/19
--- OUTSIDE RECORDS SUMMARY | 2025-01-05 13:50 | XMS_ITS ---
Author Organization [facility] [place] [address] Address [address] [place] [address] Care Team Providers Care Drawer Upfitter Name Role Phone Lisset Serra Primary Care Pr ovider Lionel Lanza MD PhD Unavailable [phone] Active Problems Problem Noted Date Diagnosed Date [...] 07/19/2023 Assessment & Plan (07/19/2023 9:42 PM [employer] ATTORNEY): Post hospitalization for left lobectomy. Patient does have a suture will remove on July 29. Patient is not given any pain medicine will start Tylenol 500 mg 3 times a day and increase gabapentin Gastroesophageal reflux dise ase with esophagitis without hemorrhage 07/19/2023 Assessment & Plan (07/19/2023 9:45 PM [employer] [place] ATTORNEY): Patient started on pantoprazole 40 mg 1 tablet p.o. q.day and Tums to be added as well with meals. Patient to see a dietitian ACP (advance care planning) 07/19/2023 Assessment & Plan (07/19/2023 9:48 PM [place] [place] ATTORNEY): Patient is a full code Status post lobectomy of lung 07/17/2023 Assessment & Plan (07/21/2023 3:17 PM [employer] [place] ATTORNEY): H/o lung nodule S/p left upper lobectomy on 07/09/2023. Completed Levaquin. Continue Tylenol gabapentin for pain. Follow up outpatient for post op-appointment 07/24/23 Assessment & Plan (07/19/2023 9:46 PM [employer] [place] ATTORNEY): H/o lung nodule S/p left upper lobectomy on 07/09/2023. Continue Levaquin x 4 days. Continue Tylenol gabapentin for pain. Assessment & Plan (07/17/2023 12:49 PM [employer] [place] ATTORNEY): H/o lung nodule S/p left upper lobectomy on 07/09/2023. Continue Levaquin x 4 days. Continue Tylenol gabapentin for pain. Ileus 07/11/2023 Assessment & Plan (07/15/2023 8:31 AM [employer] [place] [employer]OR[employer]): Ileus is improving. No nausea + BM 07/14 - supp - CLD and ADAT - restart home meds if remains asymptomatic Hypomagnesemia 07/11/2023 Assessment & Plan (05/31/2024 10:14 AM CDT): - Magnesium (05/28): 1.8mmol/L - 10/4: replete Magnesium 2g IV - Stable through 05/31, daily labs d/c Assessment & Plan (07/11/2023 11:26 AM [employer] [place] [employer]ORNEY): - replete Hyponatremia 07/11/2023 Assessment & Plan (07/15/2023 8:37 AM [employer] [place] ATTORNEY): - Na improving 138 - will hold Na tabs once tolerating PO diet - continue daily BMPs. Thrombocytopenia 07/11/2023 Assessment & Plan (07/11/2023 11:28 AM [employer] [place] ATTORNEY): - monitor Hypocalcemia 07/11/2023 Assessment & Plan (07/11/2023 11:34 AM [employer] [place] ATTORNEY): - home meds when able - monitor Acute blood loss anemia 07/10/2023 Assessment & Plan (05/31/2024 10:13 AM CDT): - Hgb (05/27): 12.4g/dL - 05/27: recorded EBL 150mL - Hgb (05/28): 11.4g/dL - Stable through 05/31; daily labs d/c Assessment & Plan (07/11/2023 11:25 AM [employer] [place] ATTORNEY): EBL intra op 300ml - monitor Lung mass 07/09/2023 Class 2 obesity in adult 07/09/2023 Assessment & Plan (07/09/2023 4:07 PM [employer] ATTORNEY): - monitor Rheumatoid arthritis 07/09/2023 Assessment & Plan (07/21/2023 3:18 PM [employer] ATTORNEY): Stable. Continue Prednisone and Hydroxychloroquine. Assessment & Plan (07/19/2023 9:52 PM [employer] ATTORNEY): Patient is to continue prednisone ,folic acid and Assessment & Plan (07/17/2023 12:50 PM [employer] ATTORNEY): Continue prednisone, folic acid, and hydroxychloroquine. Stable. 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 Past Treatment and Therapy Plans No past plan information found. Lifetime Dose Tracking * Chemical Lifetime Dose Automatic Entry Manual Entr y Fluoro Time 0.54 minutes 0.54 minutes 0 minutes Air kerma at the reference point (Ka,r) 2.13 mGy 2 .13 mGy 0 mGy DLP 2,045 mGycm 2,045 mGycm 0 mGycm Resolved Problems Problem Noted Date Diagnosed Date Resolved Date Hypotension 07/09/2023 07/14/2023 Assessment & Plan (07/10/2023 10:29 AM [employer] [place] [employer]ORNEY): - hypotensive post op - improved this AM - increase to epidural
--- OUTSIDE RECORDS SUMMARY | 2025-01-05 13:50 | XMS_ITS | Encounter Summary ---
Author Organization [facility] Address [address] [place] [address] Care Team Providers Care Consumer Safety Officer Name Role Phone Lisset Light Primary Care Pr ovider Reason for Visit * Reason Onset Date Comments Appointment 06/30/2019 Encounter Details Date Type Department Care Team (Late st Contact Info) Description 06/30/2019 Telephone [facility] Orthopedics [address] [place] [id number] Soniya Ann Appointment Social History Tobacco Use Types Packs/Day Years [...] Nancy Davidson * Does person have difficulty dressing/bathing? Answer [...] PM Nancy Davidson documented in this encounter Miscellaneous Notes * Telephone Encounter - Soniya Ann - 06/30/2019 11:34 AM CST I added/overbooked this post op patient to Dr. Valdez schedule on 07/07 @2pm. MILL SUPERVISOR documented in this encounter Plan of Treatment Not on file documented as of this encounter Visit Diagnoses Not on filedocumented in this encounter Additional Health Concerns Infection Onset Date Last Indicated Resolved Time MRSA 07/27/2019 07/30/2019 documented as of this encounter Care Teams Consumer Safety Officer Relationship Specialty Start Date End Date Lisset Light PA [address] [place] [address] PCP - General Physician Computer Peripheral Equipment Operator 06/11/19 documented as of this encounter
--- OUTSIDE RECORDS SUMMARY | 2025-01-05 13:50 | XMS_ITS | Data Portability ---
Author Organization [facility] Micah Quinteros Address [address] [place] [address] Care Team Providers Care Surgical Processor Name Role Phone LISSET SERRA Primary Care Provider Assessment Encounter Date Assessment Date Assessment LastModified by Organization Details LastModified Time 09/28/2024 09/28/2024 Labs last friday with Dr. Mushtaq. ALVARADO with other labs from february via this office. Not available 09/28/2024 14:15:11 Plan of Treatment Reminders Order Date Submit Date Provider Last Modified By Organization Details Last Modified Time Details Appointments ANY 15 2024 01:30P M TOMASA Zhou Not available Not available Not available Lab vitami n D, 25-hyd kristina, total, serum 2023 024 [place] [facility], [address], [place], [address], 03/11/2024 08:30:27 BMP, serum or plasma 2023 024 [place], [address], [address], [place], [address], 03/11/2024 08:30:25 hepati c functi on panel, serum 2023 024 [place], [address], [address], [place], [address], 03/11/2024 08:30:24 CBC w/ auto diff 2023 024 [place] [facility], [address], [address], [place], [address], 03/11/2024 08:30:26 TSH + free T4, serum 2023 024 [facility], [address], [address], [place], [address], 03/11/2024 08:30:23 lipid panel, serum 2023 024 [facility], [address], [address], [place], [address], 03/11/2024 08:30:24 C reacti ve protei n, QN, serum or plasma 2023 024 [facility], [address], [address], [place], [address], 03/11/2024 08:30:27 erythr ocyte sedime ntatio n rate by boogie gren method 2023 024 [facility], [address], [place], [address], 03/11/2024 08:30:[address] referr al - pt needs a new Rheuma tologi st. Her previo us left the area. hx of RA severe , hx of osteop orosis and hx of bone fractu res. 2023 024 [email or web address] Anthony Ross MD, [address] [facility], [place], [address], 09/29/2024 15:16:[address] referr al 2023 024 [email or web address] Alexys Almendarez, [facility]3 [facility] , [place], [address], 07/01/2024 14:32:33 Procedures lexisc an cardio lite stress test (PROC) 2024 025 [facility] ([facility]), [address] [place] [address] [address], [place], [address], 01/04/2025 17:43:43 Surgeries None record ed. Imaging US, echoca rdiogr am, marcus marie c, comple te, w/ color flow 2023 024 [facility] (Cardiology [facility]), [address], [place], [address], 03/22/2024 14:00:22 Medication Orders Linzes s 72 mcg capsul e 2024 025 [place] [id number] [facility], [address] [place], [address], 09/28/2024 14:23:58 paroxe adan 40 mg tablet 2023 024 [email or web address] [id number] [facility], [address] , [place], [address], 09/28/2024 14:02:48 Patient TargetsNo targets recorded. Patient Instructions Encounter Date Encounter Id Patient Instructions Last Modified By Organization Details Last Modified Time 02/23/2024 [id number] A healthy lifestyle: care instructions Not available 03/14/2024 19:06:08 12/22/2024 [id number] complete PFT w/ post bronchodilator spirometry* ATHENAFAX Not available 12/22/2024 15:44:53 A healthy lifestyle: care instructions Not available 12/22/2024 15:19:33 Reason for Referral Testboard Operator Referral for Rheumatoid arthritis Referring Physician: Lisset Serra, Internal Medicine, Encounter Date: 02/23/2024 Testboard Operator Referral for Rheumatoid arthritis pt needs a new Testboard Operator. Her previous left the area. hx of RA severe, hx of osteoporosis and hx of bone fractures. Referring Physician: Lisset Serra, Internal Medicine, Encounter Date: 06/22/2024 Results Created Date Observation Date Name Description Value Unit Range Abnormal Flag Note LastModifiedBy Organization Detail LastModifiedTime 03/10/2003/11/2024 TSH+F REE T4 TSH 2.480 uIU/m L 0.450- 4.500 Not Available [facility] ([facility]) [address] [place], [address], 03/11/2024 08:30:23 03/10/20 24 03/11/2024 TSH+F REE T4 T4,free(dire ct) 1.34 NG/dL 0.82-1 .77 Not Available [facility] ([facility]) [address] [place], [address], 03/11/2024 08:30:23 03/10/20 24 03/11/2024 LIPID PANEL cholesterol, total 178 mg/dL 100-19 9 Not Available [facility] ([facility]) [address] [place], [address], 03/11/2024 08:30:24 03/10/20 24 03/11/2024 LIPID PANEL triglyceride s 113 mg/dL 0-149 Not Available [facility] ([facility]) [address] [place], [address], 03/11/2024 08:30:24 03/10/20 24 03/11/2024 LIPID PANEL HDL cholesterol 70 mg/dL >39 Not Available [facility] ([facility]) [address] [place], [address], 03/11/2024 08:30:24 03/10/20 24 03/11/2024 LIPID PANEL VLDL cholesterol steven 20 mg/dL 5-40 Not Available [facility] ([facility]) [address] [place], [address], 03/11/2024 08:30:24 03/10/20 24 03/11/2024 LIPID PANEL LDL chol calc ([facility]) 88 mg/dL 0-99 Not Available [facility] ([facility]) [address] [place], [address], 03/11/2024 08:30:24 03/10/20 24 03/11/2024 HEPAT IC FUNCT ION PANEL (7) protein, total 6.9 g/dL 6.0-8. 5 Not Available [facility] ([facility]) [address] [facility], [place], [address], 03/11/2024 08:30:24 03/10/20 24 03/11/2024 HEPAT IC FUNCT ION PANEL (7) albumin 4.1 g/dL 3.8-4. 8 Not Available [facility] ([facility]) [address] [facility], [place], [address], 03/11/2024 08:30:24 03/10/20 24 03/11/2024 HEPAT IC FUNCT ION PANEL (7) bilirubin, total 0.4 mg/dL 0.0-1. 2 Not Available [facility] ([facility]) [address] [facility], [place], [address], 03/11/2024 08:30:24 03/10/20 24 03/11/2024 HEPAT IC FUNCT ION PANEL (7) bilirubin, direct 0.13 mg/dL 0.00-0 .40 Not Available [facility] ([facility]) [address] [facility], [place], [address], 03/11/2024 08:30:24 03/10/20 24 03/11/2024 HEPAT IC FUNCT ION PANEL (7) alkaline phosphatase 86 IU/L 44-121 Not Available [facility] ([facility]) [address] [facility], [place], [address], 03/11/2024 08:30:24 03/10/20 24 03/11/2024 HEPAT IC FUNCT ION PANEL (7) AST (SGOT) 29 IU/L 0-40 Not Available [facility] ([facility]) [address] [place], [address], 03/11/2024 08:30:24 03/10/20 24 03/11/2024 HEPAT IC FUNCT ION PANEL (7) ALT (SGPT) 22 IU/L 0-32 Not Available [facility] ([facility]) [address] [place], [address], 03/11/2024 08:30:24 03/10/20 24 03/11/2024 BMP7+ EGFR glucose 90 mg/dL 70-99 Not Available [facility] ([facility]) [address] [place], [address], 03/11/2024 08:30:25 03/10/20 24 03/11/2024 BMP7+ EGFR BUN 16 mg/dL 8-27 Not Available [facility] ([facility]) [address] [place], [address], 03/11/2024 08:30:25 03/10/20 24 03/11/2024 BMP7+ EGFR creatinine 0.88 mg/dL 0.57-1 .00 Not Available [facility] ([facility]) [address] [place], [address], 03/11/2024 08:30:25 03/10/20 24 03/11/2024 BMP7+ EGFR eGFR 68 mL/mi n/1.7 3 >59 Not Available [facility] ([facility]) [address] [place], [address], 03/11/2024 08:30:25 03/10/20 24 03/11/2024 BMP7+ EGFR sodium 133 mmol/ L 134-14 4 below low normal Not Available [facility] ([facility]) [address] [place], [address], 03/11/2024 08:30:25 03/10/20 24 03/11/2024 BMP7+ EGFR potassium 4.7 mmol/ L 3.5-5. 2 Not Available [facility] ([facility]) [address] [place], [address], 03/11/2024 08:30:25 03/10/20 24 03/11/2024 BMP7+ EGFR chloride 95 mmol/ L 96-106 below low normal Not Available [facility] ([facility]) [address] [facility], [place], [address], 03/11/2024 08:30:25 03/10/20 24 03/11/2024 BMP7+ EGFR carbon dioxide, total 23 mmol/ L 20-29 Not Available [facility] ([facility]) [address] [facility], [place], [address], 03/11/2024 08:30:25 03/10/20 24 03/10/2024 CBC WITH DIFFE RENTI AL/PL ATELE T WBC 4.8 x10e3 /uL 3.4-10 .8 Not Available [facility] ([facility]) [address] [facility], [place], [address], 03/11/2024 08:30:25 03/10/20 24 03/10/2024 CBC WITH DIFFE RENTI AL/PL ATELE T RBC 4.26 x10e6 /uL 3.77-5 .28 Not Available [facility] ([facility]) [address] [facility], [place], [address], 03/11/2024 08:30:25 03/10/20 24 03/10/2024 CBC WITH DIFFE RENTI AL/PL ATELE T hemoglobin 13.0 g/dL 11.1-1 5.9 Not Available [facility] ([facility]) [address] [facility], [place], [address], 03/11/2024 08:30:25 03/10/20 24 03/10/2024 CBC WITH DIFFE RENTI AL/PL ATELE T hematocrit 40.1 % 34.0-4 6.6 Not Available [facility] ([facility]) [address] [facility], [place], [address], 03/11/2024 08:30:25 03/10/20 24 03/10/2024 CBC WITH DIFFE RENTI AL/PL ATELE T MCV 94 fL 79-97 Not Available [facility] ([facility]) [address] [facility], [place], [address], 03/11/2024 08:30:25 03/10/20 24 03/10/2024 CBC WITH DIFFE RENTI AL/PL ATELE T MCH 30.5 pg 26.6-3 3.0 Not Available [facility] ([facility]) [address] [facility], [place], [address], 03/11/2024 08:30:25 03/10/20 24 03/10/2024 CBC WITH DIFFE RENTI AL/PL ATELE T MCHC 32.4 g/dL 31.5-3 5.7 Not Available [facility] ([facility]) [address] [facility], [place], [address], 03/11/2024 08:30:25 03/10/20 24 03/10/2024 CBC WITH DIFFE RENTI AL/PL ATELE T RDW 14.8 % 11.7-1 5.4 Not Available [facility] ([facility]) [address] [facility], [place], [address], 03/11/2024 08:30:25 03/10/20 24 03/10/2024 CBC WITH DIFFE RENTI AL/PL ATELE T platelets 199 x10e3 /uL 150-45 0 Not Available [facility] ([facility]) [address] [facility], [place], [address], 03/11/2024 08:30:25 03/10/20 24 03/10/2024 CBC WITH DIFFE RENTI AL/PL ATELE T neutrophils 78 % notest ab. Not Available [facility] ([facility]) [address] [place], [address], 03/11/2024 08:30:25 03/10/20 24 03/10/2024 CBC WITH DIFFE RENTI AL/PL ATELE T lymphs 11 % notest ab. Not Available [facility] ([facility]) [address] [facility], [place], [address], 03/11/2024 08:30:25 03/10/20 24 03/10/2024 CBC WITH DIFFE RENTI AL/PL ATELE T monocytes 8 % notest ab. Not Available [facility] ([facility]) [address] [facility], [place], [address], 03/11/2024 08:30:25 03/10/20 24 03/10/2024 CBC WITH DIFFE RENTI AL/PL ATELE T eos 2 % notest ab. Not Available [facility] ([facility]) [address] [facility], [place], [address], 03/11/2024 08:30:25 03/10/20 24 03/10/2024 CBC WITH DIFFE RENTI AL/PL ATELE T basos 0 % notest ab. Not Available [facility] ([facility]) [address] [facility], [place], [address], 03/11/2024 08:30:25 03/10/20 24 03/10/2024 CBC WITH DIFFE RENTI AL/PL ATELE T neutrophils (absolute) 3.8 x10e3 /uL 1.4-7. 0 Not Available [facility] ([facility]) [address] [place], [address], 03/11/2024 08:30:25 03/10/20 24 03/10/2024 CBC WITH DIFFE RENTI AL/PL ATELE T lymphs (absolute) 0.5 x10e3 /uL 0.7-3. 1 below low normal Not Available [facility] ([facility]) [address] [place], [address], 03/11/2024 08:30:25 03/10/20 24 03/10/2024 CBC WITH DIFFE RENTI AL/PL ATELE T monocytes(ab solute) 0.4 x10e3 /uL 0.1-0. 9 Not Available [facility] ([facility]) [address] [facility], [place], [address], 03/11/2024 08:30:25 03/10/20 24 03/10/2024 CBC WITH DIFFE RENTI AL/PL ATELE T eos (absolute) 0.1 x10e3 /uL 0.0-0. 4 Not Available [facility] ([facility]) [address] [facility], [place], [address], 03/11/2024 08:30:25 03/10/20 24 03/10/2024 CBC WITH DIFFE RENTI AL/PL ATELE T baso (absolute) 0.0 x10e3 /uL 0.0-0. 2 Not Available [facility] ([facility]) [address] [facility], [place], [address], 03/11/2024 08:30:25 03/10/20 24 03/10/2024 CBC WITH DIFFE RENTI AL/PL ATELE T immature granulocytes 1 % notest ab. Not Available [facility] ([facility]) [address] [facility], [place], [address], 03/11/2024 08:30:25 03/10/20 24 03/10/2024 CBC WITH DIFFE RENTI AL/PL ATELE T immature grans (abs) 0.1 x10e3 /uL 0.0-0. 1 Not Available [facility] ([facility]) [address] [facility], [place], [address], 03/11/2024 08:30:25 03/10/20 24 03/10/2024 SEDIM ENTAT ION RATE- WESTE RGREN sedimentatio n rate-westerg joel 40 mm/HR 0-40 Not Available [facility] ([facility]) [address] [place], [address], 03/11/2024 08:30:26 03/10/20 24 03/11/2024 C-EMELI CTIVE PROTE IN, QUANT C-reactive protein, quant 3 mg/L 0-10 Not Available [facility] ([facility]) [address] [facility], [place], [address], 03/11/2024 08:30:27 03/10/20 24 03/11/2024 VITAM IN D, 25-HY DROXY vitamin D, 25-hydroxy 39.2 NG/mL 30.0-1 00.0 Vitam in D defic iency has been defin ed by the Insti tute of Medic ine and an Endoc rine Socie ty pract ice guide line as a level of serum 25-OH vitam in D less than 20 ng/mL (1,2) . The Endoc rine Socie ty went on to furth er defin e vitam in D insuf ficie ncy as a level betwe en 21 and 29 ng/mL (2). 1. IOM (Inst itute of Medic ine). 2010. Dieta ry refer ence intak es for calci um and D. Katharine wells [place]: The [facility] Press . 2. Mariella mckeon MF, [place], Pawel off-F errar i MURPHY, et al. Evalu ation , treat ment, and preve ntion of vitam in D defic iency : an Endoc rine Socie ty clini steven pract ice guide line. JCEM. 2010; 96(7) :1911 -30. Not Available [facility] ([facility]) [address] [facility], [place], [address], 03/11/2024 08:30:27 03/22/20 24 03/18/2024 US, echoc ardio gram, trans thora cic, compl ete, w/ color flow No observ ation record ed. [facility] [address], [place], [address], 04/05/2024 11:31:28 05/26/20 24 05/25/2024 CT, brain , w/o contr ast No observ ation record ed. [facility] [address], [place], [address], 05/27/2024 14:06:32 Result Notes None recorded. Problems Name Problem SNOMED Code Status Onset Date Resolution Date Notes Provider Name and Address Organization Details Recorded Time Obesity 604977046 Active 2023 TOMASA Zhou Attn: George granad,[address] [place], [address], [place] [facility] 4 19:06:03 Body mass index 30+ - obesity 357400985 Active 2023 TOMASA Zhou Attn: George granda,[address] [place], [address], [place] [facility] 4 19:06:04 Heart murmur 59166427 Active 2023 TOMASA Zhou Attn: George granda,[address] [place], [address], [place] [facility] 4 19:06:10 Rheumatoid arthritis 66131387 Active 2023 TOMASA Zhou Attn: George granda,[address] [place], [address] [facility] 4 19:06:18 Osteoporosi s 46737219 Active 2023 TOMASA Zhou Attn: George granda,[address] [place], [address], [place] [facility] 4 19:06:20 Seasonal allergic rhinitis 926858616 Active 2023 TOMASA Zhou Attn: George granda,[address] [place], [address], [place] [facility] 4 19:06:22 Mixed anxiety and depressive disorder 287748883 Active 2023 TOMASA Zhou Attn: George granda,[address] [place], [address], [place] [facility] 4 19:06:23 Long-term drug therapy Active 2023 TOMASA Zhou Attn: George granda,[address] [facility], [place], [address], [place] [facility] 4 19:06:25 Osteoarthri tis 736541547 Active 2023 TOMASA Zhou Attn: Accounttrent granda,[address] [facility], [place], [address], [place] [facility] 4 19:06:36 Positive screening for depression on PHQ-9 (Patient Health Questionnai re 9) 5525264167969 00 Active 2023 TOMASA Zhou Attn: Marinatrent granda,[address] [facility], [place], [address], [place] [facility] 5 09:29:34 Elbow fracture 177358163 Active 2023 TOMASA Zhou Attn: Accounttrent granda,[address] [facility], [place], [address], [place] [facility] 4 21:32:29 Constipatio n 22646221 Active 2024 TOMASA Zhou Attn: George granda,[address] [place], [address], [place] [facility] 5 14:16:41 Paroxysmal supraventri cular tachycardia 60875080 Active 2024 TOMASA Zhou Attn: Accountin g,[address] [place], [address], [place] [facility] 5 09:29:06 First degree atrioventri cular block 721056841 Active 2024 TOMASA Zhou Attn: Accounttrent g,[address] [place], [address], [place] [facility] 5 09:29:07 Lung function testing abnormal 007900325 Active 2024 TOMASA Zhou Attn: Accountin g,[address] [facility], [place], [address], [place] 5 09:29:26 Obese class I 9945529279537 07 Active 2024 OTMASA Zhou Attn: Accountin g,[address] [facility], [place], [address], [place] [facility] 5 09:29:32 Problem Notes None recorded. Procedures Surgical History Date Name Laterality Status Provider Name and Address Organization Details Recorded Time 4 Suture/Staple removal completed TOMASA Zhou Attn: Accounting,[address] [facility], [place], [address], [place] 06/22/2024 21:33:29 procedure on lung completed Arpita Lugo [place] - [facility] 02/23/2024 15:40:23 LEEP completed Ar[place] Lug[place] [facility] 02/23/2024 15:40:38 Back Surgery completed Ar[place]ita Lug[place] [facility] 02/23/2024 15:41:08 repair of elbow completed Rodney Glaser [place] - [facility] 09/28/2024 14:03:12 Imaging Results Imaging Date Name Status LastModified by Organiz ation Details LastModified Time 03/18/2024 US, echocardiogra m, transthoracic , complete, w/ color flow completed [address], [address], 04/05/2024 11:31:28 05/25/2024 CT, brain, w/o contrast completed [address], [address], 05/27/2024 14:06:32 Procedure Notes None recorded. Medical Equipment None Reported. Allergies Allergen ID Allergen Name Allergen Category Reaction Reaction Severity Criticality Documentation Date Start Date Code Code System Note Provider Name and Address Organization Details Recorded Time 569948 Product containin g penicilli n (product) medicatio n swelling mild low 02/23/2024 40418 8001 SNOMED Arpita JOSE Lugo null, [place] [facility] 15:34:53 Medications Name Sig Start Date Stop Date Status Note LastModified by Organization Details LastModified Time doxycycli ne hyclate 100 mg capsule 09/28 completed Not Available Not Available Not Available naproxen 375 mg tablet 09/28 completed Not Available Not Available Not Available prednison e 20 mg tablet TAKE 2 TABLETS BY MOUTH EVERY DAY FOR 5 DAYS 02/22 completed Patient is only taking 2.5mg instead of 20mg Not Available Not Available Not Available alendrona te 70 mg tablet TAKE 1 TABLET BY MOUTH WEEKLY active Not Available Not Available No t Available prednison e 5 mg tablet TAKE 1 TABLET BY MOUTH TWICE A DAY 02/22 completed Patient is only taking 2.5mg instead of 5mg Not Available Not Available Not Available leflunomi de 20 mg tablet TAKE 1 TABLET BY MOUTH EVERY DAY 02/22 completed Not Available Not Available Not Available tramadol 50 mg tablet TAKE 1 TABLET BY MOUTH EVERY 8 HOURS NEEDED 02/22 completed Patient stated she is no longer on this medicati on. Not Available Not Available Not Available methotrex ate sodium 2.5 mg tablet TAKE 5 TABLETS BY MOUTH ONCE A WEEK active Not Available Not Available No t Available prednison e 2.5 mg tablet PLEASE SEE ATTACHED FOR DETAILED DIRECTIO NS 09/28 completed Not Available Not Available Not Available paroxetin e 30 mg tablet Take 1 tablet every day by oral route for 90 days. 06/22 completed Not Available Not Available Not Available folic acid 1 mg tablet TAKE 1 TABLET BY MOUTH EVERY DAY active Not Available Not Available No t Available monteluka st 10 mg tablet TAKE 1 TABLET BY MOUTH EVERY DAY active Not Available Not Available No t Available mupirocin 2 % topical ointment 02/22 completed Not Available Not Available Not Available hydroxych loroquine 200 mg tablet TAKE 2 TABLETS BY MOUTH EVERY DAY active Not Available Not Available No t Available levofloxa abril 500 mg tablet TAKE 1 TABLET BY MOUTH EVERY DAY FOR 5 DAYS 02/22 completed Not Available Not Available Not Available paroxetin e 40 mg tablet Take 1 tablet every day by oral route for 90 days. active Not Available Not Available No t Available oxycodone 5 mg tablet TAKE 1/2 TABLET BY MOUTH EVERY 6 HOURS NEEDED FOR PAIN 07/15 completed Not Available Not Available Not Available Linzess 145 mcg capsule 09/28 completed Not Available Not Available Not Available Xeljanz XR 11 mg tablet,ex tended release Take 1 tablet every day by oral route. active Not Available Not Available No t Available Linzess 72 mcg capsule TAKE 1 CAPSULE BY MOUTH EVERY DAY active Not Available Not Available No t Available Vitals Date Recorded Body weight Body mass index (BMI) Body height Heart rate Oxygen saturation Oxygen saturation in Arterial blood by Pulse oximetry Systolic blood pressure Diastolic blood pressure Provider Name and Address Organization Details Last Updated DateTime 4 83184.7 3 g 35.8 kg/m2 162.56 cm 85 /min 98 % 98 % 124 mm[Hg] 70 mm[Hg] Arpita Lugo MA [facility] 4 15:44:30 Date Recorded Body height Body mass index (BMI) Body weight Oxygen saturation Oxygen saturation in Arterial blood by Pulse oximetry Heart rate Respiratory rate Systolic blood pressure Diastolic blood pressure Provider Name and Address Organization Details Last Updated DateTime 4 162.56 cm 34.5 kg/m2 96223.0 7 g 97 % 97 % 95 /min 20 /min 128 mm[Hg] 82 mm[Hg] Rodney Glaser MA [facility] 4 11:41:58 Date Recorded Body height Body mass index (BMI) Body weight Oxygen saturation Oxygen saturation in Arterial blood by Pulse oximetry Heart rate Respiratory rate Systolic blood pressure Diastolic blood pressure Provider Name and Address Organization Details Last Updated DateTime 5 162.56 cm 32.3 kg/m2 26321.0 1 g 96 % 96 % 64 /min 20 /min 148 mm[Hg] 88 mm[Hg] Rodney Glaser MA [facility] 5 14:05:24 Date Recorded Systolic blood pressure Diastolic blood pressure Provider Name and Address Organization Details Last Updated DateTime 09/28/2024 124 mm[Hg] 80 mm[Hg] TOMASA Zhou Attn: Accounting,[address] [place], [address], [facility] 09/28/2024 14:23:07 Date Recorded Body height Body mass index (BMI) Body weight Respiratory rate Oxygen saturation Oxygen saturation in Arterial blood by Pulse oximetry Heart rate Provider Name and Address Organization Details Last Updated DateTime 162.56 cm 30.9 kg/m2 59733.6 3 g 20 /min 98 % 98 % 76 /min Rodney Glaser MA [facility] 14:54:20 Date Recorded Systolic blood pressure Diastolic blood pressure Provider Name and Address Organization Details Last Updated DateTime 12/22/2024 110 mm[Hg] 80 mm[Hg] TOMASA Zhou Attn: Accounting,[address], [place], [address], [facility] 12/22/2024 15:13:30 Social History Question Answer Notes LastModified by Organizat ion Details LastModified Time Tobacco Smoking Status Never Smoker Arpita Lugo MA null, [facility] 02/23/2024 15:38:32 Do You Have An Advance Directive? Yes Information n ot available 02/23/2024 How Many Years Have You Consumed Alcohol? 50 Information not available 02/23/2024 Are You Blind Or Do You Have Difficulty Seeing? No Information n ot available 02/23/2024 What Is Your Level Of Caffeine Consumption? Heavy Information not available 02/23/2024 In The 14 Days Before Symptom Onset, Have You Had Close Contact With A Laboratory-confirm ed COVID-19 While That Case Was Ill? No Information n ot available 02/23/2024 In The 14 Days Before Symptom Onset, Have You Had Close Contact With A Person Who Is Under Investigation For COVID-19 While That Person Was Ill? No Information not available 02/23/2024 Have You Been To An Area Known To Be High Risk For COVID-19? No Information not available 02/23/2024 Are You Deaf Or Do You Have Serious Difficulty Hearing? No Information not available 02/23/2024 What Type Of Diet Are You Following? REGULAR Information n ot available 02/23/2024 Are There Any Guns Present In Your Home? No Information not available 02/23/2024 What Was The Date Of Your Most Recent Tobacco Screening? 12/22/2024 [email or web address] Information not available 12/22/2024 What Is Your Relationship Status? Information not available 02/23/2024 Do You Use Your Seat Belt Or Car Seat Routinely? Yes Information not available 02/23/2024 Do You Have Smoke And Carbon Monoxide Detectors In Your Home? Yes Information not available 02/23/2024 Do You Use Sunscreen Routinely? Yes Information not available 02/23/2024 Has Tobacco Cessation Counseling Been Provided? No Information not available 02/23/2024 Sex: Female Functional Status Question Answer Note LastModified by Organizat ion Details LastModified Time Do you use any illicit or recreational drugs? No [email or web address] Information not available 02/23/20 [id number]|2025-01-05 13:50:00|2025-01-05 13:50:00|XMS_ITS|HEYDI LOZANO|External Medical Summaries|[id number]|" Data Portability Created on: January 05, 2025 Gabriela Chavez .[id number] : 1950 Sex: Female Author Organization [place] [employer], Main Office Address [address] [place] [id number] Care Team Providers Care Surgical Processor Name Role Phone LISSET SERRA Primary Care Provider LISSET SERRA Referring Provider Assessment Encounter Date Assessment Date Assessment LastModified by Organization Details LastModified Time 12/25/2022 12/25/2022 impression: Michelle mullins has aching in the region of her medial locking plate in the tibial plateau of her right knee with prolonged walking. There is little bit of prominence of the proximal anterior corner the plate in the anteromedial aspect of her knee. She asked if there is anything that can be done to improve this. Unfortunately, I think that her risk of infection is exceedingly high if we were to consider hardware removal and there would be no assurance that that would eliminate her soreness. Her soreness may be multifactorial and may be related to the mild varus deformity resulting from her fracture. As she is on to immunosuppressive agents her risk of infection with any surgical procedure is very high and should only be considered if surgery would prove necessary such as re fracture or recurrent infection. Fortunately she has no signs of recurrent infection at this time. I have discussed her that weight loss would be beneficial by putting less stress on her knee. She is working on that. We talked about her ankle and it does not bother her surprisingly. She wears scatter walking shoes. If her ankle started bothering her an ankle brace would be a consideration. If she developed any signs of infection or new symptoms she should let us know immediately as she is at risk for infection during her lifetime including risk of infection in the hardware region of her right knee as the hardware has been retained and there may be quiescent bacteria that are dormant this time that could become activated again in the future. I am happy to see her back as needed. 45 minutes were spent in total care this patient more than half the time spent in [id number] care. [email or web address] Not available 12/25/2022 12:54:42 01/10/2023 01/10/2023 [facility] sep 13, negative. Not available 01/10/2023 12:08:21 09/05/2023 09/05/2023 [facility] sep 13, negative. Not available 09/05/2023 12:13:01 09/19/2023 09/19/2023 HPI: Patient returns. She is here for 1 year follow-up of her left reverse shoulder arthroplasty done by Dr. Baeza following a severe proximal humerus fracture. Overall shoulder is comfortable for her. She is having no pain in it. If she overuses it it does get sore otherwise she has been comfortable with it. She does note that she is limited with activities with it. Physical exam: Patient has active elevation of the left shoulder to about 80 , external rotation 30 . There is no pain with range of motion. She is able to hold the arm up and 80 without discomfort. Impression: Patient is 1 year out from left reverse shoulder arthroplasty. She is having normal symptoms in the shoulder. X-rays look approximately the when the did at her previous x-rays postoperatively. I discussed with her that if she ever starts to develop more pain in the shoulder she needs to have this re-evaluated. otherwise will see her back as needed. nu Not available 09/19/2023 12:29:28 Plan of Treatment Reminders Order Date Submit Date Provider Last Modified By Organization Details Last Modified Time Details Appointments None recorded. Lab vitamin D, 25-hydroxy , total, serum 2022 023 [facility] (Lab), [address], [address], 3 09:19:42 TSH, serum or plasma [address] (Lab), [address], [place], [address], 3 17:34:39 lipid panel, serum 2022 023 [facility] (Lab), [address], [place], [address], 3 09:19:42 HbA1c (hemoglobi n A1c), blood 2022 023 [facility] (Lab), [address], [place], [address], 3 09:19:42 Referral None recorded. Procedures None recorded. Surgeries None recorded. Imaging XR, shoulder 2023 024 [email or web address] [facility] [place], [address], [place], [address], 4 15:31:19 MAMMO, screening, digital, bilateral [address] (Mammography) , [address], [place], [address], 15:36:52 LDCT, chest, for lung cancer screening 2022 023 [email or web address] Not available 14:04:46 XR, tibia + fibula 2022 023 [email or web address] [facility] [place], [address], [place], [address], 13:37:51 Medication Orders None recorded. Patient TargetsNo targets recorded. Patient InstructionsNo instructions recorded. Reason for Referral None Reported. Results Created Date Observation Date Name Description Value Unit Range Abnormal Flag Note LastModifiedBy Organization Detail LastModifiedTime 12/26/19 XR, tibia + fibul a No observ ation record ed. [email or web address] [facility] [place] [address], [place], [address], 12/25/2022 12:48:48 02/01/2001/28/2023 LDCT, chest , for lung cance r shahla ceja No observ ation record ed. [address], [place], [address], 05/14/2023 11:06:32 02/13/20 23 11/13/2022 MAMMO , shahla ceja, digit al, bilat eral No observ ation record ed. [address], [place], [address], 02/14/2023 15:30:31 05/22/20 23 05/20/2023 PET-C T, skull base to mid-t high scan No observ ation record ed. [email or web address] [place] [address] [facility] [address], [place], [address], 06/15/2023 13:14:36 06/04/20 23 06/03/2023 XR, chest , 2 view No observ ation record ed. [place] [address], [place], [address], 06/04/2023 15:37:19 09/19/19 24 XR, shoul cait No observ ation record ed. [email or web address] [facility] [place] [address], [place], [address], 09/19/2023 12:27:18 Result Notes None recorded. 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 2636658564290 9107 Active 2017 Not Available [facility] 3 12:58:08 History of venous thrombosis 3839914496779 4108 Active Not Available [facility] 3 12:58:08 Peripheral arterial insufficie ncy 0646131115450 04 Active 2021 Not Available [facility] 3 12:58:08 Acute sinusitis 26439393 Active Not Available [facility] 3 12:58:08 Pain of left shoulder joint 7343193237281 9109 Active 2021 Not Available [facility] 3 12:58:08 Indigestio n 406793839 Active Not Available [facility] 3 12:58:08 Chronic diarrhea of unknown origin 12214445 Active 2021 Not Available [facility] 3 12:58:08 Generalize d anxiety disorder 87365752 Active 2021 Not Available [facility] 3 12:58:08 Interstiti al lung disease 818596439 Active 2017 Not Available [facility] 3 12:58:08 Gastroesop hageal reflux disease 855989923 Active 2017 Not Available [facility] 3 12:58:08 Increased blood pressure 16815645 Active Not Available [facility] 3 12:58:08 Degenerati on of lumbar interverte bral disc 04211787 Active Not Available [facility] 3 12:58:08 Abnormal findings on diagnostic imaging of lung 838394467 Active 2017 Not Available [facility] 3 12:58:08 Low back pain 830142301 Active Not Available [facility] 3 12:58:08 Lower urinary tract symptoms 127848478 Active 2021 Not Available [facility] 3 12:58:09 Knee pain Active Not Available [facility] 3 12:58:09 Closed fracture of neck of femur 262861170 Active Not Available [facility] 3 12:58:09 Seasonal allergic rhinitis 992427804 Active Not Available [facility] 3 12:58:09 Deep venous thrombosis of lower extremity 981141624 Active Not Available [facility] 3 12:58:09 Body mass index 40+ - severely obese 335257378 Active 2017 Not Available [facility] 3 12:58:09 Closed fracture of upper end of humerus 26692633 Active 2021 Not Available [facility] 3 12:58:09 Ulcer 063296467 Active Not Available [facility] 3 12:58:09 Foreign body in skin of foot 923960094 Active 2022 Not Available [facility] 3 12:58:09 Anxiety 74989402 Active 2021 Not Available [facility] 3 12:58:09 Cough 05187838 Active Not Available [facility] 3 12:58:09 Candidiasi s of skin 30950969 Active Not Available [facility] 3 12:58:09 Closed fracture of base of metacarpal bone other than first metacarpal 04895507 Active Not Available [facility] 3 12:58:09 Hyperlipid emia 59545540 Active Not Available [facility] 3 12:58:09 Allergic rhinitis 74556441 Active 2017 Not Available [facility] 3 12:58:09 Diarrhea 84152774 Active Not Available [facility] 3 12:58:09 Osteoporos is 67237179 Active 2021 Not Available [facility] 3 12:58:09 Rheumatoid arthritis 31132059 Active Not Available [facility] 3 12:58:09 Posterior rhinorrhea 99791842 Active Not Available [facility] 3 12:58:09 Overactive urinary bladder 432364584 Active 2022 Not Available [facility] 3 12:58:09 Loss of appetite 40246823 Active Not Available [facility] 3 12:58:09 Pain in limb 03284857 Active Not Available [facility] 3 12:58:09 Pain in right lower limb 619014251 Active 2022 Not Available [facility] 3 12:58:09 Solitary nodule of lung 857190575 Active 2022 Not Available [facility] 3 12:58:09 Biopsy result abnormal 338534584 Active 2022 TOMASA Zhou [address] [facility], [facility] [address], [place], [address] , [facility] 3 13:57:44 Problem Notes None recorded. Procedures Surgical History Date Name Laterality Status Provider Name and Address Organization Details Recorded Time 06/25/20 23 lobectomy of lung completed BETHANY Jacques [facility] 07/24/2023 16:12:59 09/25/19 22 Rotator cuff surgery completed Not Available [facility] 10/23/2022 13:29:48 05/28/20 17 Most Recent Bone Density completed Not Available [facility] 10/23/2022 13:29:48 07/07/20 15 Date of Last Colonoscopy completed Not Available [facility] 10/23/2022 13:29:48 07/07/20 15 Colposcopy completed Not Available [facility] 3 13:29:48 Orthopedic Surgery completed Not Available [facility] 10/23/2022 13:29:48 Imaging Results Imaging Date Name Status LastModified by Organ atformerly [facility], [facility] Details LastModified Time 12/25/2022 XR, tibia + fibula completed [email or web address] [facility] [place] [address], [place], [address], 12/25/2022 12:48:48 01/28/2023 LDCT, chest, for lung cancer screening completed [address], [place], [address], 05/14/2023 11:06:32 11/13/2022 MAMMO, screening, digital, bilateral completed [address], [address], 02/14/2023 15:30:31 05/20/2023 PET-CT, skull base to mid-thigh scan completed [address] [facility] [address] [place] [address] [address], [address], 06/15/2023 13:14:36 06/03/2023 XR, chest, 2 view completed [place] [address], [place], [address], 06/04/2023 15:37:19 09/19/2023 XR, shoulder completed [email or web address] [facility] [place] [address], [place], [address], 09/19/2023 12:27:18 Procedure Notes None recorded. Medical Equipment None Reported. Allergies Allergen ID Allergen Name Allergen Category Reaction Reaction Severity Criticality Documentation Date Start Date Code Code System Note Provider Name and Address Organization Details Recorded Time 65016 Product containin g penicilli n (product) medicatio n rash Not available Not available 10/23/2022 90867 [id number] SNOMED big red spots Not Available [facility] 13:32:56 Medications Name Sig Start Date Stop Date Status Note LastModified by Organization Details LastModified Time azelastin e 0.05 % eye drops INSTILL 1 DROP INTO both eyes BY OPHTHALM IC ROUTE 2 TIMES PER DAY active Not Available Not Available No t Available acetamino phen 325 mg tablet Take 2 tablets every 6 hours by oral route as needed. 02/08 completed Not Available Not Available Not Available carvedilo l 6.25 mg tablet 01/19 completed Not Available Not Available Not Available doxycycli ne hyclate 100 mg capsule Take 1 capsule twice a day by oral route with meals. active Not Available Not Available No t Available paroxetin e 10 mg tablet active Not Available Not Available Not Available sulfasala zine 500 mg tablet 01/01 completed Not Available Not Available Not Available lisinopri l 20 mg-hydroc hlorothia zide 12.5 mg tablet 01/19 completed Not Available Not Available Not Available oxybutyni n chloride ER 10 mg tablet,ex tended release 24 hr TAKE 1 TABLET BY MOUTH EVERY DAY 01/10 completed Not Available Not Available Not Available azithromy abril 250 mg tablet TAKE 2 TABLETS BY MOUTH TODAY, THEN TAKE 1 TABLET DAILY FOR 4 DAYS 07/12 completed Not Available Not Available Not Available ibuprofen 800 mg tablet 08/07 completed Not Available Not Available Not Available fluconazo le 150 mg tablet Take 1 tablet every day by oral route for 1 day. 01/01 completed Not Available Not Available Not Available benzonata te 200 mg capsule Take 1 capsule 3 times a day by oral route. active Not Available Not Available No t Available clarithro mycin 500 mg tablet Take 1 tablet every 12 hours by oral route. 12/22 completed Not Available Not Available Not Available hydrocodo ne 5 mg-acetam inophen 325 mg tablet Take 1 tablet every 12 hours by oral route as needed. 01/01 completed Not Available Not Available Not Available Keflex 500 mg capsule Take 1 capsule 3 times a day by oral route. active she didnt finish the whole dose. Not Available Not Available Not Available ibuprofen 200 mg capsule Take 1 capsule 4 times a day by oral route as needed. 09/01 completed Not Available Not Available Not Available prednison e 20 mg tablet TAKE 2 TABLETS BY MOUTH EVERY DAY FOR 5 DAYS 05/27 completed Not Available Not Available Not Available alendrona te 70 mg tablet TAKE 1 TABLET BY MOUTH ONCE PER WEEK active Not Available Not Available No t Available prednison e 5 mg tablet active Not Available Not Available Not Available Ferrex 150 mg iron capsule Take 1 capsule twice a day by oral route. 09/01 completed Not Available Not Available Not Available leflunomi de 10 mg tablet Take 1 tablet every day by oral route for 30 days. active Not Available Not Available No t Available potassium chloride ER 10 mEq tablet,ex tended release Take 1 tablet every day by oral route. active Not Available Not Available No t Available metronida zole 500 mg tablet Take 1 tablet every 8 hours by oral route. active Not Available Not Available No t Available sulfameth oxazole 800 mg-trimet hoprim 160 mg tablet 01/01 completed Not Available Not Available Not Available omeprazol e 40 mg capsule,d elayed release Take 1 capsule every day by oral route with meals. 09/05 completed Not Available Not Available Not Available leflunomi de 20 mg tablet TAKE 1 TABLET BY MOUTH DAILY 09/05 completed Not Available Not Available Not Available rifampin 300 mg capsule 01/18 completed Not Available Not Available Not Available famotidin e 20 mg tablet 08/07 completed Not Available Not Available Not Available prednisol one acetate 1 % eye drops,pearl pension INSTILL 1 DROP INTO LEFT EYE THREE TIMES A DAY, SHAKE WELL BEFORE EACH USE 01/09 completed Not Available Not Available Not Available methotrex ate sodium 2.5 mg tablet Take 1 tablet every day by oral route for 30 days. 09/05 completed Not Available Not Available Not Available Silvadene 1 % topical cream APPLY A THICK LAYER TO sores in nancy-rec ron area BY TOPICAL ROUTE 2 TIMES PER DAY 10/20 completed Not Available Not Available Not Available ranitidin e 75 mg tablet Take 1 tablet twice a day by oral route. 02/08 completed Not Available Not Available Not Available hydrocodo ne 7.5 mg-acetam inophen 325 mg tablet TAKE 1 TABLET BY MOUTH EVERY 6 HOURS NEEDED FOR PAIN - MODERATE (4-6 ON SCALE) 01/08 completed Not Available Not Available Not Available Lasix 20 mg tablet Take 1 tablet every day by oral route. 02/08 completed Not Available Not Available Not Available prednison e 2.5 mg tablet TAKE 1 TABLET BY MOUTH THREE TIMES A DAY active Not Available Not Available No t Available paroxetin e 30 mg tablet TAKE 1 TABLET BY MOUTH EVERY DAY active Not Available Not Available No t Available paroxetin e 20 mg tablet Take 1 tablet every day by oral route. active Not Available Not Available No t Available nystatin 100,000 unit/gram topical cream APPLY TO THE gluteal fold BY TOPICAL ROUTE 2 TIMES PER DAY active Not Available Not Available No t Available ranitidin e 150 mg tablet Take 1 tablet twice a day by oral route as needed. 01/01 completed Not Available Not Available Not Available docusate sodium 100 mg capsule TAKE ONE CAPSULE BY MOUTH ONCE DAILY DIRECTED 01/10 completed Not Available Not Available Not Available omeprazol e 20 mg capsule,d elayed release Take 1 capsule twice a day by oral route with meals. 01/01 completed Not Available Not Available Not Available diclofena c sodium 75 mg tablet,de layed release Take 1 tablet twice a day by oral route with meals. 01/01 completed Not Available Not Available Not Available folic acid 1 mg tablet TAKE 1 TABLET BY MOUTH DAILY active Not Available Not Available No t Available monteluka st 10 mg tablet TAKE 1 TABLET BY MOUTH EVERY DAY active Not Available Not Available No t Available hydrocodo ne 5 mg-acetam inophen 500 mg tablet 01/01 completed Not Available Not Available Not Available hydrochlo rothiazid e 25 mg tablet Take 1 tablet every day by oral route. 01/19 completed Not Available Not Available Not Available gabapenti n 100 mg capsule Take 1 capsule 3 times a day by oral route. active Not Available Not Available No t Available nystatin 100,000 unit/gram topical powder APPLY copiousl y TO THE abdomina l fold area BY TOPICAL ROUTE 2 TIMES PER DAY 01/01 completed Not Available Not Available Not Available azelastin e 137 mcg (0.1 %) nasal spray 08/07 completed Not Available Not Available Not Available Cheratuss in AC 10 mg-100 mg/5 mL oral liquid Take 10 mL every 4-6 hours by oral route as needed. 07/05 completed Not Available Not Available Not Available hydroxych loroquine 200 mg tablet TAKE 2 TABLETS BY MOUTH DAILY active Not Available Not Available No t Available levofloxa abril 500 mg tablet TAKE 1 TABLET BY MOUTH EVERY DAY FOR 5 DAYS 09/05 completed Not Available Not Available Not Available levofloxa abril 750 mg tablet 07/13 completed Not Available Not Available Not Available methylpre dnisolone 4 mg tablets in a dose pack use as directed 01/01 completed Not Available Not Available Not Available albuterol sulfate HFA 90 mcg/actua tion aerosol inhaler Inhale 2 puffs every 4 hours by inhalati on route as needed. 08/07 completed Not Available Not Available Not Available fluticaso ne propionat e 50 mcg/actua tion nasal spray,pearl pension active one spray to each nostril daily Not Available Not Available Not Available Hibiclens 4 % topical liquid Perform daily total-mary dy wash for 5 days prior to surgery. 01/08 completed Not Available Not Available Not Available loratadin e 10 mg tablet TAKE 1 TABLET BY MOUTH EVERY DAY 01/10 completed Not Available Not Available Not Available Vitamin B-12 1,000 mcg tablet Take 2 tablets every day by oral route. 05/06 completed Not Available Not Available Not Available oxycodone 5 mg tablet 01/19 completed Not Available Not Available Not Available Antifunga l (miconazo le) 2 % topical cream 11/29 completed Not Available Not Available Not Available Vitamin D3 25 mcg (1,000 unit) capsule Take 1 capsule every day by oral route. 09/01 completed Not Available Not Available Not Available nitrofura ntoin monohydra te/macroc rystals 100 mg capsule TAKE 1 CAPSULE BY MOUTH EVERY 12 HOURS 10/02 completed Not Available Not Available Not Available Enbrel 50 mg/mL (1 mL) subcutane ous syringe 01/01 completed Not Available Not Available Not Available calcium 05/06 completed Not Available Not Available Not Available Advil 05/06 completed Not Available Not Available Not Available Vitamin D3 2,000 units daily 05/06 completed Not Available Not Available Not Available pantopraz ole active Not Available Not Available Not Available Oyster Shell Calcium 500 1 tab daily 02/08 completed Not Available Not Available Not Available Vitamin B12 takes OTC daily 01/08 completed Not Available Not Available Not Available Orencia 01/10 completed Not Available Not Available Not Available Enbrel SureClick 50 mg/mL (1 mL) subcutane ous pen injector 01/01 completed Not Available Not Available Not Available Actonel 150 mg tablet Take 1 tablet every month by oral route as directed . 02/18 completed Not Available Not Available Not Available B12 05/06 completed Not Available Not Available Not Available Vitamin D3 50 mcg (2,000 unit) capsule Take by oral route. 01/08 completed Not Available Not Available Not Available Xarelto 10 mg tablet 01/01 completed Not Available Not Available Not Available Xarelto 15 mg tablet Take 1 tablet twice a day by oral route as directed for 21 days. 2015 active Dispense Qty: 42. samples given. Not Available Not Available Not Available Xarelto 20 mg tablet TAKE 1 TABLET BY MOUTH ONCE DAILY 01/01 completed Not Available Not Available Not Available Xeljanz 5 mg tablet Take 1 tablet twice a day by oral route. 01/01 completed Not Available Not Available Not Available Xeljanz XR 11 mg tablet,ex tended release Take 1 tablet every day by oral route. 04/13 completed Not Available Not Available Not Available Fluzone High-Dose 7610-3298 (PF) 180 mcg/0.5 mL intramusc ular syringe 01/01 completed Not Available Not Available Not Available Fluad 2018- 65yr up(PF)45 mcg(15 mcgx3)/0. 5 mL intramusc ular syringe 01/01 completed Not Available Not Available Not Available ID NOW COVID-19 Test Kit TEST DIRECTED TODAY 08/07 completed Not Available Not Available Not Available Vitals Date Recorded Body height Oxygen saturation Oxygen saturation in Arterial blood by Pulse oximetry Heart rate Body temperature Body weight Systolic blood pressure Diastolic blood pressure Provider Name and Address Organization Details Last Updated DateTime 3 167.64 cm 97 % 97 % 81 /min 97.2 [degF] 098092. 28 g 124 mm[Hg] 80 mm[Hg] Not Available [employer] 3 13:30:11 Date Recorded Body height Provider Name an d Address Organization Details Last Updated DateTime 12/25/2022 157.48 cm Alyssa Yu [facility] [employer] 12/25/2022 12:44:06 Date Recorded Body height Body temperature Body mass index (BMI) Body weight Respiratory rate Oxygen saturation Oxygen saturation in Arterial blood by Pulse oximetry Heart rate Systolic blood pressure Diastolic blood pressure Provider Name and Address Organization Details Last Updated DateTime 3 157.48 cm 97.8 [degF] 39.7 kg/m2 20465.5 4 g 16 /min 94 % 94 % 76 /min 140 mm[Hg] 82 mm[Hg] Marylou Anaya [employer] [facility] [employer] 3 11:42:37 Date Recorded Body height Provider Name an d Address Organization Details Last Updated DateTime 09/05/2023 157.48 cm Marylou Anaya Tita [employer] 09/05/2023 11:36:23 Date Recorded Body mass index (BMI) Body weight Heart rate Respiratory rate Oxygen saturation Oxygen saturation in Arterial blood by Pulse oximetry Systolic blood pressure Diastolic blood pressure Provider Name and Address Organization Details Last Updated DateTime 4 38.4 kg/m2 67875.4 g 93 /min 16 /min 99 % 99 % 130 mm[Hg] 80 mm[Hg] TOMASA Zhou [address] [facility], [facility] [address], [place], [address], [employer] 4 12:12:33 Date Recorded Body height Body mass index (BMI) Body weight Provider Name and Address Organization Details Last Updated DateTime 09/19/2023 154.94 cm 39.9 kg/m2 46653.99 g Luann Soares [employer] [facility] [employer] 09/19/2023 11:49:38 Social History Question Answer Notes LastModified by Organizat ion Details LastModified Time Tobacco Smoking Status Former Smoker Not Available [employer] 10/23/2022 13:29:40 Do You Have An Advance Directive? Yes [id number] Information not available 10/23/2022 Do You Wear A Helmet When Biking? No [id number] Information not available 10/23/2022 Are You Blind Or Do You Have Difficulty Seeing? Yes Wears Glasses [id number] Information not available 10/23/2022 What Is Your Level Of Caffeine Consumption? Moderate Coffee [id number] Information not available 10/23/2022 How Much Tobacco Do You Chew? None [id number] Information not available 10/23/2022 In The 14 Days Before Symptom Onset, Have You Had Close Contact With A Laboratory-confir med COVID-19 While That Case Was Ill? No [id number] Information not available 10/23/2022 In The 14 Days Before Symptom Onset, Have You Had Close Contact With A Person Who Is Under Investigation For COVID-19 While That Person Was Ill? No [id number] Information not available 10/23/2022 Are You Deaf Or Do You Have Serious Difficulty Hearing? No [id number] Information not available 10/23/2022 What Type Of Diet Are You Following? REGULAR [id number] Information not available 10/23/2022 Which Illicit Or Recreational Drugs Have You Used? None [id number] Information not available 10/23/2022 What Is The Highest Grade Or Level Of School You Have Completed Or The Highest Degree You Have Received? [id number]
--- OUTSIDE RECORDS SUMMARY | 2025-01-05 13:50 | XMS_ITS | Clinical Summary ---
Author Organization [facility] Address [address] [place] [id number] Care Team Providers Care Contact Lens Molder Name Role Phone Unavailable Primary Care Provider Unavailabl e Social History Tobacco Use Types Packs/Day Years Used Date Smoking Tobacco: Never Assessed Comments Unknown Sex and Gender Information Value Date Recorded Sex Assigned at Not on file Legal Sex Female 7:55 PM CDT Gender Identity Not on file Sexual Orientation Not on file Plan of Treatment Health Maintenance Due Date Last Done Comments Hepatitis C 1966 DTaP, Tdap and Td Vaccines ( 1 - Tdap) 1967 Pneumococcal Vaccine: 50+ Ye ars (1 of 1 - PCV) 1998 Zoster Vaccines (1 of 2) 1998 Dexa Scan (General) 2013 RSV Immunization or 60+ Years (1 - 1-dose 75+ series) 2023 COVID-19 Vaccine ( - 2023-2 5 season) 2024 Meningococcal B Vaccine Aged Out No l onger eligible based on patient's age to complete this topic Meningococcal Vaccine Aged Out No loy rodney eligible based on patient's age to complete this topic RSV Immunizations Under 20 Months Aged Out No longer eligible based on patient's age to complete this topic
--- OUTSIDE RECORDS SUMMARY | 2025-01-05 13:51 | XMS_ITS | Encounter Summary ---
Author Organization [facility] Address [address] [place] [address] Phone Care Team Providers Care Joint Runner Name Role Phone Lisset Serra Primary Care Pr ovider Lionel Lanza MD PhD Unavailable Encounter Details Date Type Department Care Team (Late st Contact Info) Description 06/16/2023 Telephone [facility] Oncology [address] [facility] [address] 7[address] [place] [address] [place] [address] Juan F Almendarez Social History Tobacco Use Types Packs/Day Years Used Date Smoking Tobacco: Never Assessed Comments Unknown Sex and Gender Information Value Date Recorded Sex Assigned at Not on file Legal Sex Female 3:14 AM [employer]CR[employer] FINISH[employer] Gender Identity Not on file Sexual Orientation Not on file documented as of this encounter Plan of Treatment Not on file documented as of this encounter Visit Diagnoses Not on filedocumented in this encounter Care Teams Joint Runner Relationship Specialty Start Date End Date Lisset Serra PA PCP - General Physician Juvenile Justice Specialist 06/17/23 Lionel Lanza MD PhD [address] [facility], [address] [address] Medical Oncology 06/17/23 documented as of this encounter
--- OUTSIDE RECORDS SUMMARY | 2025-01-05 13:51 | XMS_ITS | Encounter Summary ---
Author Organization [facility] Address [address] [place] [address] Care Team Providers Care Instructor Ground Services Name Role Phone Lisset Light Primary Care Pr ovider Encounter Details Date Type Department Care Team (Late st Contact Info) Description 11/19/2019 DV Documentation [facility] [address] [place] [address] Collins Valdez MD [address] [facility] [address] [place], [place] [id number] Social History Tobacco Use Types Packs/Day Years [...] difficulty? Answer Date of Assessment Author No 07/27/2019 2:58 PM Elsie Louis RN * Is person blind or have serious difficulty seeing? Answer Date of Assessment Author No 07/27/2019 2:58 PM Elsie Louis RN * Does person have serious difficulty walking/climbing stairs? Answer Date of Assessment Author Yes 07/27/2019 2:58 PM Elsie Louis RN * Does person have difficulty dressing/bathing? Answer Date of Assessment Author Yes 07/27/2019 2:58 PM Elsie Louis RN * Does person have difficulty doing errands alone? Answer Date of Assessment Author Yes 07/27/2019 2:58 PM Elsie Louis RN documented as of this encounter Mental Status * Does person have difficulty concentrating/remembering/making decisions? 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
--- NOTE | 2025-01-05 16:50 | WPDPFTINT ---
PFT Procedure Performed PFT Procedure Performed Spirometry with Pre/Post Bronchodilator Plethysmography (Lung Vol) Diffusing Cap (DLCO) Flow Vol Loop PFT Interpretation This is a pulmonary function test with pre and post-bronchodilator spirometry, plethysmography and diffusing capacity. The test was performed and results interpreted in accordance with the 2019 and 2005 ATS/ERS Task Force guidelines respectively using the Global Lung Function Initiative-2012 reference equations. Patient demonstrated good effort and cooperation. Reproducibility criteria were met. The quality of the pre bronchodilator spirometry maneuver was Grade A and post bronchodilator spirometry maneuver was Grade B. Of note, patient was only able to perform 1 acceptable plethysmography maneuver. Findings: Spirometry: There is decreased maximal expiratory airflow at low lung volumes with concave expiratory flow tracing. The contour the inspiratory flow tracing is normal. The pre bronchodilator FVC is 1.92 L, 78% predicted. The pre bronchodilator FEV1 is 1.31 L, 69% predicted. The pre bronchodilator FEV1: FVC ratio 68%. The post bronchodilator FVC is 1.90 L, representing an 1% decrease. The post bronchodilator FEV1 is 1.20 L, representing an 8% decrease. The post bronchodilator FEV1: FVC ratio 63%. Plethysmography: The total lung capacity is 3.82 L, 81% predicted. The functional residual capacity is 2.69 L, 99% predicted. The residual volume is 1.90 L, 86% predicted. Diffusing capacity: The diffusing capacity unadjusted for hemoglobin and carboxyhemoglobin is 10.3, 54% predicted. The diffusing capacity adjusted for alveolar volume is 3.69, 86% predicted. In comparison to previous pulmonary function testing that contained only pre and post bronchodilator spirometry on 03/20/2018 , the post bronchodilator FVC is decreased from 2.74 L to 1.90 L. The post bronchodilator FEV1 is decreased from 2.04 L to 1.20 L. Impression: The spirometry is normal without evidence of an obstructive abnormality. There is no significant improvement after inhaling a single dose of albuterol. The lung volumes are normal. The diffusing capacity unadjusted for hemoglobin and carboxyhemoglobin is moderately decreased and normalizes when adjusted for alveolar volume. In comparison to previous pulmonary function testing that contained only pre and post bronchodilator spirometry on 03/20/2018, there has been a greater than anticipated time dependent decrease in the FVC and FEV1. Clinical correlation is recommended.
== END 2025-01-05 13:43 | disposition home or self-care (01) ==
LOC: ANHPFT 13:42
PROVIDERS: PCP Physician Assistant; Visit Provider Physician Assistant
DX: R94.2 Abnormal results of pulmonary function studies (principal)
CPT/HCPCS: 94060; 94726; 94729

== ENCOUNTER 2025-01-28 07:13 | Outpatient (CLI) | payer MEDICARE, MEDICAID, SELFPAY ==
--- NOTE | 2025-01-28 | EST_ITS ---
Patient Info Name: Gabriela Chavez Age: 74 years : 1950 Gender: Female Ht: 62 in Wt: 180 lbs BSA: 1.92 m2 HR: 65 bpm BP: 145 / 78 mmHg Exam Date: 01/28/2025 8:38 AM Patient Status: O Admit Date: 01/28/2025 Exam Type: CA stress yamila w NM A regadenoson stress test was performed. Staff Referring Physician: Lisset Serra Attending Provider: Lisset Serra Exercise Technologist: Evelyn Wagner Exercise Physician: Bulmaro Stone DO Summary 1. 1. Negative lexiscan stress test for ischemic ST changes by ECG criteria. 2. 2. Baseline hypertension. 3. 3. Nuclear scan to follow and will be reported separately. Please correlate with it. 4. 4. Patient informed of the above results. Protocol: Lexiscan Stress ECG Details Stage: REST Duration (min): 1 min : 0 sec HR (bpm): 65 SBP (mmHg): 145 DBP (mmHg): 78 Stage: REST Duration (min): 14 min : 7 sec HR (bpm): 66 SBP (mmHg): 145 DBP (mmHg): 78 Stage: STAGE 1 Duration (min): 1 min : 0 sec HR (bpm): 73 SBP (mmHg): 143 DBP (mmHg): 76 Stage: RECOVERY Duration (min): 1 min : 0 sec HR (bpm): 80 SBP (mmHg): 143 DBP (mmHg): 76 Stage: RECOVERY Duration (min): 2 min : 0 sec HR (bpm): 78 SBP (mmHg): 143 DBP (mmHg): 76 Stage: RECOVERY Duration (min): 3 min : 0 sec HR (bpm): 74 SBP (mmHg): 143 DBP (mmHg): 73 Stage: RECOVERY Duration (min): 3 min : 7 sec HR (bpm): 75 SBP (mmHg): 143 DBP (mmHg): 73 Rest HR: 66 bpm Peak HR: 81 bpm Rest Sys BP: 145 mmHg Peak Sys BP: 143 mmHg Max Pred HR: 144 bpm % Max Pred HR: 56 % Target HR: 122 bpm Max RPP: 11,583 bpm*mmHg Termination Reason: Completed protocol Cardiac Symptoms: None Total Time: 1 min : 0 sec Rest Mast BP: 78 mmHg Peak Mast BP: 76 mmHg Total Dose: 0.4 mg Resting ECG Sinus rhythm. Stress ECG No ST changes. Arrhythmias None. Report Signatures
--- NOTE | ~2025-01-28 | NM_ITS ---
EXAMINATION: NM yamila stress w perfusion DATE: 01/28/2025 10:06 INDICATION: Supraventricular tachycardia TECHNIQUE: Rest images were obtained following intravenous administration of 11.2 mCi Tc99m tetrofosm in (Myoview). The patient was infused intravenously with Lexiscan (Regadenoson). Then, 35.2 mCi Tc99m tetrofosmin (Myoview) was administered intravenously, and stress images were obtained. Data was jael nstructed into short axis and horizontal and vertical long axis SPECT images. Gated SPECT images were also obtained. COMPARISON: None. FINDINGS: There is no definite reversible or fixed perfusion abnormality to suggest ischemia or infar ction. There is normal left ventricular chamber size, wall motion and ejection fraction. Left ventr icular ejection fraction measures >70%. IMPRESSION: 1. Normal myocardial perfusion at rest and during stress. 2. Left ventricular ejection fraction measuring >70%. Reviewed, dictated and finalized at location A.
--- OUTSIDE RECORDS SUMMARY | 2025-01-28 07:16 | XMS_ITS | Data Portability ---
Author Organization [place] [facility], Main Office Address [address] [place] [address] Care Team Providers Care Panel Flow Machine Operator Name Role Phone MIRA PAK Primary Care Provider [phone] MIRA PAK Referring Provider [phone] Assessment Encounter Date Assessment Date Assessment LastModified [...] more than half the time spent in euhu-ye-wzhp care. [email or web address] Not available 12/25/2022 12:54:42 01/10/2023 01/10/2023 [facility] sep 13, negative. Not available 01/10/2023 12:08:21 09/05/2023 09/05/2023 [facility] sep 13, negative. Not available 09/05/2023 12:13:01 [...] otherwise will see her back as needed. [email or web address] Not available 09/19/2023 12:29:28 Plan of Treatment Reminders Order Date Submit Date Provider Last Modified By Organization Details Last Modified Time Details Appointments None recorded. Lab vitamin D, 25-hydroxy , total, serum 2022 023 [facility] (Lab), [address] [facility] [address] [place] [address], [address], 3 09:19:42 TSH, serum or plasma 2022 [email or web address] [place] [address] (Lab), [address] [facility] [address], [place], [address], 3 17:34:39 lipid panel, serum 2022 023 [facility] (Lab), [address], [place], [address], 3 09:19:42 HbA1c (hemoglobi n A1c), blood 2022 023 [facility] (Lab), [address], [place], [address], 3 09:19:42 Referral None recorded. Procedures None recorded. Surgeries None recorded. Imaging XR, shoulder 2023 024 [email or web address] [facility] [place], [address], [place], [address], 4 15:31:19 MAMMO, screening, digital, bilateral [address] (Mammography) , [address], [place], [address], 3 15:36:52 LDCT, chest, for lung cancer screening 2022 023 [email or web address] Not available 3 14:04:46 XR, tibia + fibula 2022 023 [email or web address] [facility] [place], [address], [place], [address], 3 13:37:51 Medication Orders None recorded. Patient TargetsNo targets recorded. Patient InstructionsNo instructions recorded. Reason for Referral None Reported. Results Created Date Observation Date Name Description Value Unit Range Abnormal Flag Note LastModifiedBy Organization Detail LastModifiedTime 12/26/19 23 XR, tibia + fibul a No observ ation record ed. [email or web address] [facility] [place] [address], [place], [address], 12/25/2022 12:48:48 06/05/14 2301/28/2023 LDCT, chest , for lung cance r shahla ceja No observ ation record ed. [place] [id number], [place], [address], 05/14/2023 11:06:32 02/13/20 23 11/13/2022 MAMMO , shahla ceja, digit al, bilat eral No observ ation record ed. [address], [place], [address], 02/14/2023 15:30:31 05/22/20 23 05/20/2023 PET-C T, skull base to mid-t high scan No observ ation record ed. [email or web address] [facility] [address] [place] [address] [address], [place], [address], 06/15/2023 13:14:36 06/04/20 23 06/03/2023 XR, chest , 2 view No observ ation record ed. [address], [place], [address], 06/04/2023 15:37:19 09/19/19 24 XR, shoul cait No observ ation record ed. [email or web address] [facility] [place] [address] [facility] [address], [place], [address], 09/19/2023 12:27:18 Result Notes None recorded. 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 6536754810629 9107 Active 2017 Not Available [facility] 3 12:58:08 History of venous thrombosis 8057965189605 4108 Active Not Available [facility] 3 12:58:08 Peripheral arterial insufficie ncy 7258421896562 04 Active 2021 Not Available [facility] 3 12:58:08 Acute sinusitis 30576068 Active Not Available [facility] 3 12:58:08 Pain of left shoulder joint 5553268806665 9109 Active 2021 Not Available [facility] 3 12:58:08 Indigestio n 746817395 Active Not Available [facility] 3 12:58:08 Chronic diarrhea of unknown origin 06879362 Active 2021 Not Available [facility] 3 12:58:08 Generalize d anxiety disorder 60445765 Active 2021 Not Available [facility] 3 12:58:08 Interstiti al lung disease 561973289 Active 2017 Not Available [facility] 3 12:58:08 Gastroesop hageal reflux disease 037194114 Active 2017 Not Available [facility] 3 12:58:08 Increased blood pressure 26525439 Active Not Available [facility] 3 12:58:08 Degenerati on of lumbar interverte bral disc 72767648 Active Not Available [facility] 3 12:58:08 Abnormal findings on diagnostic imaging of lung 072544147 Active 2017 Not Available [facility] 3 12:58:08 Low back pain 373349903 Active Not Available [facility] 3 12:58:08 Lower urinary tract symptoms 193109110 Active 2021 Not Available [facility] 3 12:58:09 Knee pain Active Not Available [facility] 3 12:58:09 Closed fracture of neck of femur 127677843 Active Not Available [facility] 3 12:58:09 Seasonal allergic rhinitis 705934788 Active Not Available [facility] 3 12:58:09 Deep venous thrombosis of lower extremity 883280124 Active Not Available [facility] 3 12:58:09 Body mass index 40+ - severely obese 777344183 Active 2017 Not Available [facility] 3 12:58:09 Closed fracture of upper end of humerus 10038980 Active 2021 Not Available [facility] 3 12:58:09 Ulcer 166986474 Active Not Available [facility] 3 12:58:09 Foreign body in skin of foot 048795035 Active 2022 Not Available [facility] 3 12:58:09 Anxiety 66836099 Active 2021 Not Available [facility] 3 12:58:09 Cough 97434812 Active Not Available [facility] 3 12:58:09 Candidiasi s of skin 70711603 Active Not Available [facility] 3 12:58:09 Closed fracture of base of metacarpal bone other than first metacarpal 87789742 Active Not Available [facility] 3 12:58:09 Hyperlipid emia 31820419 Active Not Available [facility] 3 12:58:09 Allergic rhinitis 01025843 Active 2017 Not Available [facility] 3 12:58:09 Diarrhea 31702728 Active Not Available [facility] 3 12:58:09 Osteoporos is 91343956 Active 2021 Not Available [facility] 3 12:58:09 Rheumatoid arthritis 23707316 Active Not Available [facility] 3 12:58:09 Posterior rhinorrhea 84763467 Active Not Available [facility] 3 12:58:09 Overactive urinary bladder 568004530 Active 2022 Not Available [facility] 3 12:58:09 Loss of appetite 04152775 Active Not Available [facility] 3 12:58:09 Pain in limb 89006284 Active Not Available [facility] 3 12:58:09 Pain in right lower limb 958745436 Active 2022 Not Available [facility] 3 12:58:09 Solitary nodule of lung 450505782 Active 2022 Not Available [facility] 3 12:58:09 Biopsy result abnormal 387989817 Active 2022 TOMASA Zhou [address] [facility], [place], [address] , [place] [employer] 13:57:44 Problem Notes None recorded. Procedures Surgical History Date Name Laterality Status Provider Name and Address Organization Details Recorded Time 06/25/20 23 lobectomy of lung completed BETHANY Jacques [employer] 07/24/2023 16:12:59 09/25/19 22 Rotator cuff surgery completed Not Available [facility] 10/23/2022 13:29:48 05/28/20 17 Most Recent Bone Density completed Not Available [facility] 10/23/2022 13:29:48 07/07/20 15 Date of Last Colonoscopy completed Not Available [facility] 10/23/2022 13:29:48 07/07/20 15 Colposcopy completed Not Available [facility] 13:29:48 Orthopedic Surgery completed Not Available [facility] 10/23/2022 13:29:48 Imaging Results None recorded. Procedure Notes None recorded. Medical Equipment None Reported. Allergies Allergen ID Allergen Name Allergen Category Reaction Reaction Severity Criticality Documentation Date Start Date Code Code System Note Provider Name and Address Organization Details Recorded Time 47956 Product containin g penicilli n (product) medicatio n rash Not available Not available 10/23/2022 63670 8001 SNOMED big red spots Not Available [facility] 13:32:56 Medications Name Sig Start Date Stop [...] Available Not Available Not Available Fluzone High-Dose 5911-3882 (PF) 180 mcg/0.5 mL intramusc ular syringe 01/01 completed Not Available Not Available Not Available Fluad 2018- 65yr up(PF)45 mcg(15 mcgx3)/0. 5 mL intramusc ular syringe 01/01 completed Not Available Not Available Not Available ID NOW COVID-19 Test Kit TEST DIRECTED TODAY 08/07 completed Not Available Not Available Not Available Vitals Date Recorded Body mass index (BMI) Body weight Heart rate Respiratory rate Oxygen saturation Oxygen saturation in Arterial blood by Pulse oximetry Systolic blood pressure Diastolic blood pressure Provider Name and Address Organization Details Last Updated DateTime 38.4 kg/m2 42949.4 g 93 /min 16 /min 99 % 99 % 130 mm[Hg] 80 mm[Hg] TOMASA Zhou [address] [facility], [facility] [address], [place], [address], [place] [employer] 12:12:33 Date Recorded Body height Provider Name an d Address Organization Details Last Updated DateTime 09/05/2023 157.48 cm BETHANY Jacques [place] [employer] [facility] 09/05/2023 11:36:23 Date Recorded Body height Body mass index (BMI) Body weight Provider Name and Address Organization Details Last Updated DateTime 09/19/2023 154.94 cm 39.9 kg/m2 39024.99 g Luann Soares [facility] [place] [employer] [facility] 09/19/2023 11:49:38 Date Recorded Body height Oxygen saturation Oxygen saturation in Arterial blood by Pulse oximetry Heart rate Body temperature Body weight Systolic blood pressure Diastolic blood pressure Provider Name and Address Organization Details Last Updated DateTime 3 167.64 cm 97 % 97 % 81 /min 97.2 [degF] 742547. 28 g 124 mm[Hg] 80 mm[Hg] Not Available [facility] 3 13:30:11 Date Recorded Body height Provider Name an d Address Organization Details Last Updated DateTime 12/25/2022 157.48 cm Alyssa Yu [facility] [place] [employer] [facility] 12/25/2022 12:44:06 Date Recorded Body height Body temperature Body mass index (BMI) Body weight Respiratory rate Oxygen saturation Oxygen saturation in Arterial blood by Pulse oximetry Heart rate Systolic blood pressure Diastolic blood pressure Provider Name and Address Organization Details Last Updated DateTime 3 157.48 cm 97.8 [degF] 39.7 kg/m2 28299.5 4 g 16 /min 94 % 94 % 76 /min 140 mm[Hg] 82 mm[Hg] Marylou Anaya [facility] [place] [employer] [facility] 3 11:42:37 Social History Question Answer Notes LastModified by Organizat ion Details LastModified Time Tobacco Smoking Status Former Smoker Not Available [facility] 10/23/2022 13:29:40 Do You Have An Advance Directive? Yes MIGRATION.14870 56298 Information not available 10/23/2022 Do You Wear A Helmet When Biking? No MIGRATION.60600 43137 Information not available 10/23/2022 Are You Blind Or Do You Have Difficulty Seeing? Yes Wears Glasses MIGRATION.09898 89448 Information not available 10/23/2022 What Is Your Level Of Caffeine Consumption? Moderate Coffee MIGRATION.50728 58751 Information not available 10/23/2022 How Much Tobacco Do You Chew? None MIGRATION.16761 23856 Information not available 10/23/2022 In The 14 Days Before Symptom Onset, Have You Had Close Contact With A Laboratory-confir med COVID-19 While That Case Was Ill? No MIGRATION.68709 59676 Information not available 10/23/2022 In The 14 Days Before Symptom Onset, Have You Had Close Contact With A Person Who Is Under Investigation For COVID-19 While That Person Was Ill? No MIGRATION.01121 62561 Information not available 10/23/2022 Are You Deaf Or Do You Have Serious Difficulty Hearing? No MIGRATION.02230 95504 Information not available 10/23/2022 What Type Of Diet Are You Following? REGULAR MIGRATION.26178 02163 Information not available 10/23/2022 Which Illicit Or Recreational Drugs Have You Used? None MIGRATION.60523 92043 Information not available 10/23/2022 What Is The Highest Grade Or Level Of School You Have Completed Or The Highest Degree You Have Received? [id number] MIGRATION.80954 63589 Information not available 10/23/2022 Have There Been Any Changes To Your Family Or Social Situation? No MIGRATION.91244 04982 Information not available 10/23/2022 When Did You Quit Smoking? 1-5yearssinc elastcigaret te MIGRATION.73101 13896 Information not available 10/23/2022 Are There Any Guns Present In Your Home? No MIGRATION.49323 85863 Information not available 10/23/2022 Do You Use Insect Repellent Routinely? Yes MIGRATION.34870 17253 Information not available 10/23/2022 What Was The Date Of Your Most Recent Tobacco Screening? 01/08/2022 MIGRATION.55883 61342 Information not available 10/23/2022 Do You Have Any Pets? No MIGRATION.63817 98100 Information not available 10/23/2022 What Is Your Relationship Status? MIGRATION.52148 11506 Information not available 10/23/2022 Do You Use Your Seat Belt Or Car Seat Routinely? Yes MIGRATION.34821 08203 Information not available 10/23/2022 Do You Have Smoke And Carbon Monoxide Detectors In Your Home? Yes MIGRATION.66164 17296 Information not available 10/23/2022 At What Age Did You Start Smoking Tobacco? 16 MIGRATION.91690 90888 Information not available 10/23/2022 Are You Passively Exposed To Smoke? No MIGRATION.66220 42269 Information not available 10/23/2022 Are There Any Smokers In Your House? No MIGRATION.78637 27503 Information not available 10/23/2022 Do You Use Sunscreen Routinely? Yes MIGRATION.39931 31203 Information not available 10/23/2022 Has Tobacco Cessation Counseling Been Provided? No MIGRATION.58288 40132 Information not available 10/23/2022 Have You Recently Traveled Abroad? No MIGRATION.95139 31677 Information not available 10/23/2022 Do You Have Difficulty Walking Or Climbing Stairs? Yes Uses Cane Outside Of Home MIGRATION.31305 41713 Information not available 10/23/2022 Do You Have Any Dietary Restrictions? No MIGRATION.73157 75416 Information not available 10/23/2022 Sex: Unknown Functional Status Question Answer Note LastModified by [employer] ion Details LastModified Time Do you or have you ever used smokeless tobacco? Never used smokeless tobacco MIGRATION.011006 4244 Information not available 10/23/2022 Are you currently employed? No [email or web address] Information not available 01/09/2023 Do you have transportation difficulties? No MIGRATION.939446 5195 Information not available 10/23/2022 Are you able to care for yourself? Yes MIGRATION.150000 9607 Information not available 10/23/2022 Do you have difficulty dressing or bathing? No MIGRATION.852403 9919 Information not available 10/23/2022 Do you or have you ever used e-cigarettes or vape? Never used electronic cigarettes MIGRATION.664556 8300 Information not available 10/23/2022 What is your exercise level? None MIGRATION.741595 2188 Information not available 10/23/2022 Do you use any illicit or recreational drugs? No MIGRATION.737469 4892 Information not available 10/23/2022 Do you or have you ever used any other forms of tobacco or nicotine? No MIGRATION.316715 7456 Information not available 10/23/2022 What is your level of alcohol consumption? Occasional MIGRATION.030088 5017 Information not available 10/23/2022 Are you able to walk? YESASSIST MIGRATION.781895 4469 Information not available 10/23/2022 Do you have difficulty doing errands alone? Yes MIGRATION.043830 3885 Information not available 10/23/2022 What is your occupation? retired MIGRATION.730816 3888 Information not available 10/23/2022 Mental Status Question Answer Note LastModified by Organizat ion Details LastModified Time Do you feel stressed (tense, restless, nervous, or anxious, or unable to sleep at night)? [id number] MIGRATION.39441479 26 Information not available 10/23/2022 Do you have difficulty concentrating, remembering or making decisions? Yes MIGRATION.14455623 26 Information not available 10/23/2022 Family History Relationship Description Onset Age of this Age Resolved Age Notes LastModified by Organization Details LastModified Time Mother History of blood disorder MIGRATION.913 5571268 Not available 10/23/2022 13:29:48 Father Malignant neoplasm of prostate MIGRATION.643 6196018 Not available 10/23/2022 13:29:48 Medical History Condition Response EYE PROBLEMS Y ARTHRITIS Y OBESITY Y BLOOD DISEASES Y OSTEOPOROSIS Y BOWEL PROBLEMS Y BACK / NECK PROBLEMS Y HAVE YOU BEEN HOSPITALIZED OR SEEN IN [facility] ER IN THE PAST YEAR ? Y Gynecological History Statement/Question Response Date of Last Mammogram 07/02/2021 Current Control Method None Date of Last Colonoscopy 07/07/2015 Most Recent Bone Density 05/28/2017 Sexually Active? N Obstetrics History GPAL:G 0 P 0 0 0 0 Immunizations Vaccine Type Date Status Note Provider Nam e and Address Organization Details Recorded Time Tdap 3 completed BETHANY Jacques [place] [employer] 02/07/2023 12:42:49 influenza, unspecified formulation 3 completed BETHANY Jacques [employer] [facility] 06/24/2023 15:49:16 Influenza, split virus, quadrivalent, preservative 9 completed Not Available [facility] 10/23/2022 13:32:53 influenza, unspecified formulation 7 completed Not Available [facility] 10/23/2022 13:32:53 influenza, unspecified formulation 8 completed Not Available [facility] 10/23/2022 13:32:53 COVID-19, mRNA, LNP-S, PF, 30 mcg/0.3 mL dose 2 completed Not Available [facility] 10/23/2022 13:32:53 Influenza, high-dose, quadrivalent, PF 2 completed Not Available [facility] 10/23/2022 13:32:53 COVID-19, mRNA, LNP-S, PF, 30 mcg/0.3 mL dose 2 completed Not Available [facility] 10/23/2022 13:32:53 COVID-19, mRNA, LNP-S, PF, 100 mcg/0.5mL dose or 50 mcg/0.25mL dose 1 completed Not Available [facility] 10/23/2022 13:32:53 Influenza, high-dose, trivalent, PF 1 completed Not Available [facility] 10/23/2022 13:32:53 zoster recombinant 1 completed Not Available [facility] 10/23/2022 13:32:54 influenza, unspecified formulation 6 completed Not Available [facility] 10/23/2022 13:32:54 Influenza, high-dose, quadrivalent, PF 0 completed Not Available [facility] 10/23/2022 13:32:54 pneumococcal polysaccharide PPV23 6 completed Not Available [facility] 10/23/2022 13:32:54 Past Encounters Encounter ID Performer Location Encounter Start Date Encounter Closed Date Diagnosis/Indication Diagnosis SNOMED-CT Code Diagnosis ICD10 Code Diagnosis Note [id number] TOMASA Zhou [facility] [place] [address] [place] [address] 01/01/2021 00:00:00 01/19/2021 01:01:24 [id number] TOMASA Zhou [facility] [place] [address] [place] [address] 07/13/2021 00:00:00 07/24/2021 23:39:16 [id number] Hardy Baeza MD [facility] [place] [address] [place] [address] 08/07/2021 00:00:00 08/07/2021 16:39:35 [id number] Hardy Baeza MD [facility] [place] [address] [place] [address] 08/29/2021 00:00:00 08/29/2021 17:23:51 [id number] Hrady Baeza MD [facility] [place] [address] [place] [address] 10/10/2021 00:00:00 10/10/2021 14:18:10 [id number] Hardy Baeza MD [facility] [place] [address] [place] [address] 10/23/2021 00:00:00 10/23/2021 17:09:15 [id number] Hardy Baeza MD [facility] [place] [address] [place] [address] 11/13/2021 00:00:00 11/13/2021 17:09:18 [id number] Hardy Baeza MD [facility] [place] [address] [place] [address] 11/27/2021 00:00:00 11/27/2021 16:52:35 [id number] Hardy Baeza MD [facility] [place] [address] [place] [address] 01/08/2022 00:00:00 01/08/2022 16:34:18 [id number] Adrián Khan MD [facility] [place] [address] [place] [address] 01/11/2022 00:00:00 01/21/2022 20:09:32 [id number] Hardy Baeza MD [facility] [place] [address] [place] [address] 02/20/2022 00:00:00 02/20/2022 17:21:17 [id number] TOMASA Zhou [facility] [place] [address] [place] [address] 07/12/2022 00:00:00 07/23/2022 23:31:55 [id number] Hardy Baeza MD [facility] [place] [address] [place] [address] 08/28/2022 00:00:00 08/28/2022 14:28:40 [id number] TOMASA Zhou [facility] [place] [address] [place] [address] 10/02/2022 00:00:00 10/22/2022 21:04:27 [id number] Alex Musa MD [facility] [place] [address] [place] [address] 12/25/2022 10:05:46 12/25/2022 13:37:51 Pain in right lower limb 201476657 M79.604 [id number] TOMASA Zhou [facility] [place] [address] [place] [address] 01/10/2023 11:24:28 01/10/2023 12:18:05 Hyperlipidemia 03387693 E78.5 stable without medication . Gastroesop hageal reflux disease 734948305 K21.9 stable on omeprazole 40mg daily. Anxiety 41382721 F41.9 stable on paxil 30m daily. Allergic rhinitis 484702 04 J30.9 continue singulair and antihistam ine . she doesn't feel that nasal spray helped. Osteoporosis 38547044 M8 1.0 screening vit D ordered. Peripheral arterial insufficiency 5718244446 29619 I73.9 ALFONSO stable. completed in january 2022. Rheumatoid arthritis 698 74655 M06.9 stable on medication from [facility] Long-term drug therapy 408471874 Z79.899 screening TFT ordered Diabetes m ellitus screening 673542617 Z13.1 screening A1c due Ex-smoker 7702835 Z87.89 1 screening LDCT scan ordered. Screening mammography 24 596483 Z12.31 mammogram due [id number] TOMASA Zhou [facility] [place] [address] [place] [address] 09/05/2023 11:33:06 09/05/2023 14:25:31 Hyperlipidemia 86476277 E78.5 stable without medication . labs are UTD from january 2023. Rheumatoid arthritis 698 77571 M06.9 stable on medication from [facility], pt has upcoming labs for [facility]. Gastroesop hageal reflux disease 810117169 K21.9 stable on omeprazole 40mg daily. Anxiety 80288553 F41.9 stable on paxil 30m daily. Allergic rhinitis 584753 04 J30.9 continue singulair and antihistam ine . Osteoporosis [id number] M8 1.0 pt is on fosamax 70mg weekly. Peripheral arterial insufficiency [id number] 20001 I73.9 ALFONSO stable. completed in january 2022. Long-term drug therapy [id number] Z79.982 [id number] Alex Musa MD [facility] [address] [facility] [address] [place] [address] 09/19/2023 11:11:18 09/19/2023 12:46:15 Pain of left shoulder joint [id number] M25.512 Health Concerns Section Related Observation LastModified by Organization Detai ls LastModified Time None Recorded Concern Status LastModified by Organization Details LastModified Time None Recorded Advance Directives Directive Y: Payers Encounter Date Sequence Insurance Name Policy Number Policy Leon Covered Member ID Leon Member ID Guarantor Name 12/25/2022 1 [employer] (MEDICARE REPLACEMENT/A DVANTAGE - PPO) Gabriela S Chavez [id number] Gabriela S Chavez 12/25/2022 2 [place] [facility]ID Gabriela S Chavez [id number] Gabriela S Chavez 01/10/2023 1 [employer] (MEDICARE REPLACEMENT/A DVANTAGE - PPO) Gabriela S Chavez [id number] Gabriela S Chavez 01/10/2023 2 [place] [facility]ID Gabriela S Chavez [id number] Gabriela S Chavez 09/05/2023 2 [place] [facility] Gabriela S Chavez [id number] Gabriela S Chavez 09/05/2023 1 [employer] (MEDICARE REPLACEMENT/A DVANTAGE - HMO) [id number] Gabriela S Chavez [id number] Gabriela S Chavez 09/19/2023 2 [place] [facility] Gabriela S Chavez [id number] Gabriela S Chavez 09/19/2023 1 [employer] (MEDICARE REPLACEMENT/A DVANTAGE - HMO) [id number] Gabriela Chavez [id number] Gabriela Chavez Notes Date Note Type Note Provider Name and Address Organization Details Recorded Time 023 text/ht ml Allergy/sinusitisReported bypatient.Onset/Timing:chronic Location:facial pain;nasal discharge from nostrils Quality:no pain;congested;productive cough Duration:constant Severity:no pain; no nosebleeds (epistaxis) Context:no recent upper respiratory infection;worse with seasonal allergen exposure;worse around pollen Risk Factors:no current smoking or tobacco use Alleviating factors:nothing gives relief Aggravating factors:worse when allergies are active Associated Symptoms:nasal dischargeGeneric HPI TemplateReported bypatient.Location:bottom of left foot Quality:pressure, burning Severity:painful to walk on Duration:1 weekNotes:pt is here for c/o knot on bottom of her footLower Urinary Tract Symptoms (LUTS)Reported bypatient.Location:bladder Severity:painless Onset/Timing:> 1 year Duration:4-10 times a day; occurs at night/while sleeping Context:denies excessive fluid intake; denies excessive caffeine intake; denies new medication treatment Associated Symptoms:no abdominal pain; no groin pain; no flank pain; no chills; no fever;urgency;frequency Not Available [facility] [employer] [facility] 10/22/2022 21:04:27 023 text/ht ml patient is a 72-year-old female who presents for evaluation of her medial proximal tibial pain. 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 Valdez. She underwent open reduction internal fixation with a medial locking plate and this was complicated by a is Staph aureus infection and required surgical debridement PICC line IV antibiotics and the medial wound healed and she had fortunately no spread of the infection to her knee replacement. However, since that time she has noticed that she gets soreness in the region of the proximal medial tibial plate she walks for longer distance and she finds she has to use a cane out of the house in the right leg is not is trustworthy is used to be so when she gets up in the middle the night she uses walker and it takes her a while to get going. She also notices a prominence over the anteromedial margin of the tibial plateau. She is worried that a screw might be backing out in that location. She has a long history of significant arthritis of the right ankle has pes planus and hindfoot valgus there and tibialis posterior tendon insufficiency and history of rheumatoid arthritis for which she takes leflunomide. She also receives a week once a month infusion of Orencia for her rheumatoid arthritis. She underwent Right total hip replacement by myself in 2013. She had a severe proximal humerus fracture went on to malunion was treated with a reverse shoulder arthroplasty by Dr. Baeza in September of 2021. She notes that her right foot has turned out for many years prior to her tibial fracture. Alex Musa MD [address] [place] [address], [address], [address], [place] [facility] [place] 12/25/2022 12:55:49 023 text/ht ml Anxiety/DepressionReported bypatient.Quality:symptoms worse in the evening Severity:denies suicidal ideations; able to maintain relationships;interference with sleep Duration:symptoms lasting over 2 weeks Onset/Timing:still present Context:no major life stressors Modifying Factors:rx Associated Symptoms:denies homicidal ideations; no significant weight gain; no significant weight loss; no visual/auditory hallucinations; no delusions; no shortness of breath;sleep disturbancesHyperlipidemiaReported bypatient.Duration:chronic Control:usually well controlled Compliance:compliant; compliant with diet;does not exercise Complications:no coronary artery disease; no peripheral artery disease; no cardiovascular diseaseReflux/GERDReported bypatient.Severity:same Duration:present 5 or more years Onset/Timing:gone now Context:non-smoker; no drug/alcohol abuse; no drug alcohol withdrawal; not related to food/drink Alleviating Factors:medication Associated Symptoms:no frequent coughing; no feeling of fullness/mass in throat; no hoarseness; no food getting stuck; no belching/burping; no vomiting; not vomiting blood; no regurgitation; no shortness of breath; no chest pain; no heartburn; no difficulty swallowing; no pain when swallowing; no bad taste; no decreased appetite; no weight loss; no black/tarry stools; no fatigue; no throat pain Rheumatoid arthritis patient that follows with Rheumatology routinely. on medical management. TOMASA Zhou [address], [facility] [address], [place], [address], [employer] [facility] 01/20/2023 16:18:11 024 text/ht ml Anxiety/DepressionReported bypatient.Quality:symptoms worse in the evening Severity:denies suicidal ideations; able to maintain relationships;interference with sleep Duration:symptoms lasting over 2 weeks Onset/Timing:still present Context:no major life stressors Modifying Factors:rx Associated Symptoms:denies homicidal ideations; no significant weight gain; no significant weight loss; no visual/auditory hallucinations; no delusions; no shortness of breath;sleep disturbancesHyperlipidemiaReported bypatient.Duration:chronic Control:usually well controlled Compliance:compliant; compliant with diet;does not exercise Complications:no coronary artery disease; no peripheral artery disease; no cardiovascular diseaseReflux/GERDReported bypatient.Severity:same Duration:present 5 or more years Onset/Timing:gone now Context:non-smoker; no drug/alcohol abuse; no drug alcohol withdrawal; not related to food/drink Alleviating Factors:medication Associated Symptoms:no frequent coughing; no feeling of fullness/mass in throat; no hoarseness; no food getting stuck; no belching/burping; no vomiting; not vomiting blood; no regurgitation; no shortness of breath; no chest pain; no heartburn; no difficulty swallowing; no pain when swallowing; no bad taste; no decreased appetite; no weight loss; no black/tarry stools; no fatigue; no throat pain 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 Pt reports that pathology came back benign. Rheumatoid arthritis patient that follows with Rheumatology routinely. on medical management. TOMASA Zhou [address], [facility] [address], [place], [address], [employer] 09/08/2023 18:54:02 OBGyn Episode No OBEpisode recorded.
--- OUTSIDE RECORDS SUMMARY | 2025-01-28 07:17 | XMS_ITS | Data Portability ---
Author Organization [facility]ST[facility] Micah Quinteros Address [address] [place] [address] Care Team Providers Care Media Traffic Manager Name Role Phone LISSET SERRA Primary Care [...] D, 25-hyd kristina, total, serum 2023 024 MEYERS CHUCK [facility], [address], [place], [address], 03/11/2024 08:30:27 BMP, serum or plasma 2023 024 ROSEMARIE [facility], [address], [place], [address], 03/11/2024 08:30:25 hepati c functi on panel, serum 2023 024 ROSEMARIE [facility], [address], [place], [address], 03/11/2024 08:30:24 CBC w/ auto diff 2023 024 ROSEMARIE [facility], [address], [place], [address], 03/11/2024 08:30:26 TSH + free T4, serum 2023 024 [facility], [address], [place], [address], 03/11/2024 08:30:23 lipid panel, serum 2023 024 [facility], [address], [place], [address], 03/11/2024 08:30:24 C reacti ve protei n, QN, serum or plasma 2023 024 [facility], [address], [place], [address], 03/11/2024 08:30:27 erythr ocyte sedime ntatio n rate by boogie gren method 2023 024 [facility], [address], [place], [address], 03/11/2024 08:30:[address] referr al - pt needs a new Rheuma tologi st. Her previo us left the area. hx of RA severe , hx of osteop orosis and hx of bone fractu res. 2023 024 [email or web address] Anthony Ross MD, [address] [facility], [place], [address], 09/29/2024 15:16:[address] referr al 2023 024 [email or web address] Alexys Almendarez, [facility] , [place], [address], 07/01/2024 14:32:33 Procedures lexisc an cardio lite stress test (PROC) 2024 025 [facility] ([facility]iology [facility]), [address] [place] [address] [address], [place], [address], 01/04/2025 17:43:43 Surgeries None record ed. Imaging US, echoca rdiogr am, marcus marie c, comple te, w/ color flow 2023 024 [facility] (Cardiology [facility]), [address], [place], [address], 03/22/2024 14:00:22 Medication Orders Linzes s 72 mcg capsul e 2024 025 MEYERS CHUCK [id number], [address] [place], [address], 09/28/2024 14:23:58 paroxe adan 40 mg tablet 2023 024 [email or web address] [id number], [address], [place], [address], 09/28/2024 14:02:48 Patient TargetsNo targets recorded. Patient Instructions Encounter Date Encounter Id Patient Instructions Last Modified By Organization Details Last Modified Time 02/23/2024 [id number] A healthy lifestyle: care instructions Not available 03/14/2024 19:06:08 12/22/2024 [id number] complete PFT w/ post bronchodilator spirometry* MEYERS CHUCK Not available 01/21/2025 12:02:37 A healthy lifestyle: care instructions Not available 12/22/2024 15:19:33 Reason for Referral Gas Well Pumper Referral for Rheumatoid arthritis Referring Physician: Lisset Serra, Internal Medicine, Encounter Date: 02/23/2024 Gas Well Pumper Referral for Rheumatoid arthritis pt needs a new Gas Well Pumper. Her previous left the area. hx of RA severe, hx of osteoporosis and hx of bone fractures. Referring Physician: Lisset Serra, Internal Medicine, Encounter Date: 06/22/2024 Results Created Date Observation Date Name Description Value Unit Range Abnormal Flag Note LastModifiedBy Organization Detail LastModifiedTime 03/10/20 24 03/11/2024 TSH+F REE T4 TSH 2.480 uIU/m L 0.450- 4.500 Not Available [facility] ([facility]) [address] [place], [address], 03/11/2024 08:30:23 03/10/20 24 03/11/2024 TSH+F REE T4 T4,free(dire ct) 1.34 NG/dL 0.82-1 .77 Not Available [facility] ([facility]) [address] [place], [address], 03/11/2024 08:30:23 03/10/20 24 03/11/2024 LIPID PANEL cholesterol, total 178 mg/dL 100-19 9 Not Available [facility] ([facility]) [address] [place], [address], 03/11/2024 08:30:24 03/10/20 24 03/11/2024 LIPID PANEL triglyceride s 113 mg/dL 0-149 Not Available [facility] ([facility]) [address] [place], [address], 03/11/2024 08:30:24 03/10/20 24 03/11/2024 LIPID PANEL HDL cholesterol 70 mg/dL >39 Not Available [facility] ([facility]) [address] [place], [address], 03/11/2024 08:30:24 03/10/20 24 03/11/2024 LIPID PANEL VLDL cholesterol steven 20 mg/dL 5-40 Not Available [facility] ([facility]) [address] [place], [address], 03/11/2024 08:30:24 03/10/20 24 03/11/2024 LIPID PANEL LDL chol calc ([facility]) 88 mg/dL 0-99 Not Available [facility] ([facility]) [address] [place], [address], 03/11/2024 08:30:24 03/10/20 24 03/11/2024 HEPAT IC FUNCT ION PANEL (7) protein, total 6.9 g/dL 6.0-8. 5 Not Available [facility] ([facility]) [address] [place], [address], 03/11/2024 08:30:24 03/10/20 24 03/11/2024 HEPAT IC FUNCT ION PANEL (7) albumin 4.1 g/dL 3.8-4. 8 Not Available [facility] ([facility]) [address] [place], [address], 03/11/2024 08:30:24 03/10/20 24 03/11/2024 HEPAT IC FUNCT ION PANEL (7) bilirubin, total 0.4 mg/dL 0.0-1. 2 Not Available [facility] ([facility]) [address] [place], [address], 03/11/2024 08:30:24 03/10/20 24 03/11/2024 HEPAT IC FUNCT ION PANEL (7) bilirubin, direct 0.13 mg/dL 0.00-0 .40 Not Available [facility] ([facility]) [address] [place], [address], 03/11/2024 08:30:24 03/10/20 24 03/11/2024 HEPAT IC FUNCT ION PANEL (7) alkaline phosphatase 86 IU/L 44-121 Not Available [facility] ([facility]) [address] [place], [address], 03/11/2024 08:30:24 03/10/20 24 03/11/2024 HEPAT IC FUNCT ION PANEL (7) AST (SGOT) 29 IU/L 0-40 Not Available [facility] ([facility]) [address] [place], [address], 03/11/2024 08:30:24 03/10/20 24 03/11/2024 HEPAT IC FUNCT ION PANEL (7) ALT (SGPT) 22 IU/L 0-32 Not Available [facility] ([facility]) [address] [place], [address], 03/11/2024 08:30:24 03/10/20 24 03/11/2024 BMP7+ EGFR glucose 90 mg/dL 70-99 Not Available [facility] ([facility]) [address] [place], [address], 03/11/2024 08:30:25 03/10/20 24 03/11/2024 BMP7+ EGFR BUN 16 mg/dL 8-27 Not Available [facility] ([facility]) [address] [place], [address], 03/11/2024 08:30:25 03/10/20 24 03/11/2024 BMP7+ EGFR creatinine 0.88 mg/dL 0.57-1 .00 Not Available [facility] ([facility]) [address] [place], [address], 03/11/2024 08:30:25 03/10/20 24 03/11/2024 BMP7+ EGFR eGFR 68 mL/mi n/1.7 3 >59 Not Available [facility] ([facility]) [address] [place], [address], 03/11/2024 08:30:25 03/10/20 24 03/11/2024 BMP7+ EGFR sodium 133 mmol/ L 134-14 4 below low normal Not Available [facility] ([facility]) [address] [place], [address], 03/11/2024 08:30:25 03/10/20 24 03/11/2024 BMP7+ EGFR potassium 4.7 mmol/ L 3.5-5. 2 Not Available [facility] ([facility]) [address] [place], [address], 03/11/2024 08:30:25 03/10/20 24 03/11/2024 BMP7+ EGFR chloride 95 mmol/ L 96-106 below low normal Not Available [facility] ([facility]) [address] [facility], [place], [address], 03/11/2024 08:30:25 03/10/20 24 03/11/2024 BMP7+ EGFR carbon dioxide, total 23 mmol/ L 20-29 Not Available [facility] ([facility]) [address] [facility], [place], [address], 03/11/2024 08:30:25 03/10/20 24 03/10/2024 CBC WITH DIFFE RENTI AL/PL ATELE T WBC 4.8 x10e3 /uL 3.4-10 .8 Not Available [facility] ([facility]) [address] [facility], [place], [address], 03/11/2024 08:30:25 03/10/20 24 03/10/2024 CBC WITH DIFFE RENTI AL/PL ATELE T RBC 4.26 x10e6 /uL 3.77-5 .28 Not Available [facility] ([facility]) [address] [facility], [place], [address], 03/11/2024 08:30:25 03/10/20 24 03/10/2024 CBC WITH DIFFE RENTI AL/PL ATELE T hemoglobin 13.0 g/dL 11.1-1 5.9 Not Available [facility] ([facility]) [address] [facility], [place], [address], 03/11/2024 08:30:25 03/10/20 24 03/10/2024 CBC WITH DIFFE RENTI AL/PL ATELE T hematocrit 40.1 % 34.0-4 6.6 Not Available [facility] ([facility]) [address] [facility], [place], [address], 03/11/2024 08:30:25 03/10/20 24 03/10/2024 CBC WITH DIFFE RENTI AL/PL ATELE T MCV 94 fL 79-97 Not Available [facility] ([facility]) [address] [facility], [place], [address], 03/11/2024 08:30:25 03/10/20 24 03/10/2024 CBC WITH DIFFE RENTI AL/PL ATELE T MCH 30.5 pg 26.6-3 3.0 Not Available [facility] ([facility]) [address] [facility], [place], [address], 03/11/2024 08:30:25 03/10/20 24 03/10/2024 CBC WITH DIFFE RENTI AL/PL ATELE T MCHC 32.4 g/dL 31.5-3 5.7 Not Available [facility] ([facility]) [address] [facility], [place], [address], 03/11/2024 08:30:25 03/10/20 24 03/10/2024 CBC WITH DIFFE RENTI AL/PL ATELE T RDW 14.8 % 11.7-1 5.4 Not Available [facility] ([facility]) [address] [facility], [place], [address], 03/11/2024 08:30:25 03/10/20 24 03/10/2024 CBC WITH DIFFE RENTI AL/PL ATELE T platelets 199 x10e3 /uL 150-45 0 Not Available [facility] ([facility]) [address] [facility], [place], [address], 03/11/2024 08:30:25 03/10/20 24 03/10/2024 CBC WITH DIFFE RENTI AL/PL ATELE T neutrophils 78 % notest ab. Not Available [facility] ([facility]) [address] [facility], [place], [address], 03/11/2024 08:30:25 03/10/20 24 03/10/2024 CBC WITH DIFFE RENTI AL/PL ATELE T lymphs 11 % notest ab. Not Available [facility] ([facility]) [address] [facility], [place], [address], 03/11/2024 08:30:25 03/10/20 24 03/10/2024 CBC WITH DIFFE RENTI AL/PL ATELE T monocytes 8 % notest ab. Not Available [facility] ([facility]) [address] [facility], [place], [address], 03/11/2024 08:30:25 03/10/20 24 03/10/2024 CBC WITH DIFFE RENTI AL/PL ATELE T eos 2 % notest ab. Not Available [facility] ([facility]) [address] [facility], [place], [address], 03/11/2024 08:30:25 03/10/20 24 03/10/2024 CBC WITH DIFFE RENTI AL/PL ATELE T basos 0 % notest ab. Not Available [facility] ([facility]) [address] [facility], [place], [address], 03/11/2024 08:30:25 03/10/20 24 03/10/2024 CBC WITH DIFFE RENTI AL/PL ATELE T neutrophils (absolute) 3.8 x10e3 /uL 1.4-7. 0 Not Available [facility] ([facility]) [address] [place], [address], 03/11/2024 08:30:25 03/10/20 24 03/10/2024 CBC WITH DIFFE RENTI AL/PL ATELE T lymphs (absolute) 0.5 x10e3 /uL 0.7-3. 1 below low normal Not Available [facility] ([facility]) [address] [facility], [place], [address], 03/11/2024 08:30:25 03/10/20 24 03/10/2024 CBC WITH DIFFE RENTI AL/PL ATELE T monocytes(ab solute) 0.4 x10e3 /uL 0.1-0. 9 Not Available [facility] ([facility]) [address] [facility], [place], [address], 03/11/2024 08:30:25 03/10/20 24 03/10/2024 CBC WITH DIFFE RENTI AL/PL ATELE T eos (absolute) 0.1 x10e3 /uL 0.0-0. 4 Not Available [facility] ([facility]) [address] [facility], [place], [address], 03/11/2024 08:30:25 03/10/20 24 03/10/2024 CBC WITH DIFFE RENTI AL/PL ATELE T baso (absolute) 0.0 x10e3 /uL 0.0-0. 2 Not Available [facility] ([facility]) [address] [facility], [place], [address], 03/11/2024 08:30:25 03/10/20 24 03/10/2024 CBC WITH DIFFE RENTI AL/PL ATELE T immature granulocytes 1 % notest ab. Not Available [facility] ([facility]) [address] [facility], [place], [address], 03/11/2024 08:30:25 03/10/20 24 03/10/2024 CBC WITH DIFFE RENTI AL/PL ATELE T immature grans (abs) 0.1 x10e3 /uL 0.0-0. 1 Not Available [facility] ([facility]) [address] [facility], [place], [address], 03/11/2024 08:30:25 03/10/20 24 03/10/2024 SEDIM ENTAT ION RATE- WESTE RGREN sedimentatio n rate-westerg joel 40 mm/HR 0-40 Not Available [facility] ([facility]) [address] [facility], [place], [address], 03/11/2024 08:30:26 03/10/20 24 03/11/2024 C-EMELI CTIVE PROTE IN, QUANT C-reactive protein, quant 3 mg/L 0-10 Not Available [facility] ([facility]) [address] [facility], [place], [address], 03/11/2024 08:30:27 03/10/20 24 03/11/2024 VITAM IN [...] 1. IOM (Inst itute of Medic ine). 2009. Dieta ry refer ence intak es for calci um and D. Katharine wells [place]: [facility] . 2. Mariella mckeon MF, Dell fall [place], Pawel off-F errar i MURPHY, et al. Evalu ation , treat ment, and preve ntion of vitam in D defic iency : an Endoc rine Socie ty clini steven pract ice guide line. JCEM. 2010; 96(7) :1911 -30. Not Available [facility] ([facility]) [address] [facility], [place], [address], 03/11/2024 08:30:27 03/22/20 24 03/18/2024 US, echoc ardio gram, trans thora cic, compl ete, w/ color flow No observ ation record ed. [facility] [address], [place], [address], 04/05/2024 11:31:28 05/26/20 24 05/25/2024 CT, brain , w/o contr ast No observ ation record ed. [email or web address] [place] [address] [address], [place], [address], 05/27/2024 14:06:32 01/22/20 25 01/05/2025 compl ete PFT w/ post [facility] hodil ator jeremiah metry * No observ ation record ed. [facility] ([facility]) [address] [facility] [address], [place], [address], 01/21/2025 12:02:37 Result Notes None recorded. Problems Name Problem SNOMED Code Status Onset Date Resolution Date Notes Provider Name and Address Organization Details Recorded Time Obesity 576239622 Active 2023 TOMASA Zhou Attn: George granda,[address] [facility], [place], [address], [place] [facility] 4 19:06:03 Body mass index 30+ - obesity 327745870 Active 2023 TOMASA Zhou Attn: George granda,[address] [facility], [place], [address], [place] [facility] 4 19:06:04 Heart murmur 33755891 Active 2023 TOMASA Zhou Attn: George granda,[address] [facility], [place], [address], [place] [facility] 4 19:06:10 Rheumatoid arthritis 50021818 Active 2023 TOMASA Zhou Attn: George granda,[address] [facility], [place], [address], [place] [facility] 4 19:06:18 Osteoporosi s 84133259 Active 2023 TOMASA Zhou Attn: George granda,[address] [facility], [place], [address], [place] [facility] 4 19:06:20 Seasonal allergic rhinitis 874267539 Active 2023 TOMASA Zhou Attn: Accounttrent granda,[address] [facility], [place], [address], [place] [facility] 4 19:06:22 Mixed anxiety and depressive disorder 346492897 Active 2023 TOMASA Zhou Attn: Accounttrent g,[address] [facility], [place], [address], [place] [facility] 4 19:06:23 Long-term drug therapy Active 2023 TOMASA Zhou Attn: Accountin g,[address] [facility], [place], [address], [place] [facility] 4 19:06:25 Osteoarthri tis 648643581 Active 2023 TOMASA Zhou Attn: Accountin g,[address] [facility], [place], [address], [place] [facility] 4 19:06:36 Positive screening for depression on PHQ-9 (Patient Health Questionnai re 9) 9386821715884 00 Active 2023 TOMASA Zhou Attn: Accounttrent g,[address] [facility], [place], [address], [place] [facility] 5 09:29:34 Elbow fracture 849558079 Active 2023 TOMASA Zhou Attn: Accounttrent g,[address] [facility], [place], [address], [place] [facility] 4 21:32:29 Constipatio n 83655667 Active 2024 TOMASA Zhou Attn: Accountin g,[address] [facility], [place], [address], [place] [facility] 5 14:16:41 Paroxysmal supraventri cular tachycardia 82993059 Active 2024 TOMASA Zhou Attn: Accountin g,[address] [facility], [place], [address], [place] [facility] 5 09:29:06 First degree atrioventri cular block 517506405 Active 2024 TOMASA Zhou Attn: George granda,[address] [facility], [place], [address], [place] - [facility] 5 09:29:07 Lung function testing abnormal 462271604 Active 2024 TOMASA Zhou Attn: George granda,[address] [facility], [place], [address], [place] [facility] 5 09:29:26 Obese class I 7257126039223 07 Active 2024 TOMASA Zhou Attn: George granda,[address] [facility], [place], [address], [place] [facility] 5 09:29:32 Problem Notes None recorded. Procedures Surgical History Date Name Laterality Status Provider Name and Address Organization Details Recorded Time Suture/Staple removal completed TOMASA Zhou Attn: Accounting,[address] [facility], [place], [address], [place] [facility] 06/22/2024 21:33:29 procedure on lung completed Arpita Lugo [place] [facility] 02/23/2024 15:40:23 LEEP completed Ar[place]ita [place] [facility] 02/23/2024 15:40:38 Back Surgery completed [place]ita [place] [facility] 02/23/2024 15:41:08 repair of elbow completed Rodney [place]aser [place] [facility] 09/28/2024 14:03:12 Imaging Results None recorded. Procedure Notes None recorded. Medical Equipment None Reported. Allergies Allergen ID Allergen Name Allergen Category Reaction Reaction Severity Criticality Documentation Date Start Date Code Code System Note Provider Name and Address Organization Details Recorded Time 012143 Product containin g penicilli n (product) medicatio n swelling mild low 02/23/2024 48216 3449 SNOMED Arpita Lugo [place] null, [place] 15:34:53 Medications Name Sig Start Date Stop [...] Available No t Available Vitals Date Recorded Systolic blood pressure Diastolic blood pressure Provider Name and Address Organization Details Last Updated DateTime 09/28/2024 124 mm[Hg] 80 mm[Hg] TOMASA Zhou Attn: Accounting,[address] [place], [address] 09/28/2024 14:23:07 Date Recorded Body height Body mass index (BMI) Body weight Oxygen saturation Oxygen saturation in Arterial blood by Pulse oximetry Heart rate Respiratory rate Systolic blood pressure Diastolic blood pressure Provider Name and Address Organization Details Last Updated DateTime 5 162.56 cm 32.3 kg/m2 39753.0 1 g 96 % 96 % 64 /min 20 /min 148 mm[Hg] 88 mm[Hg] Rodney Glaser MA [facility] 14:05:24 Date Recorded Systolic blood pressure Diastolic blood pressure Provider Name and Address Organization Details Last Updated DateTime 12/22/2024 110 mm[Hg] 80 mm[Hg] TOMAAS Zhou Attn: Accounting,[address] [place], [address] 12/22/2024 15:13:30 Date Recorded Body height Body mass index (BMI) Body weight Respiratory rate Oxygen saturation Oxygen saturation in Arterial blood by Pulse oximetry Heart rate Provider Name and Address Organization Details Last Updated DateTime 5 162.56 cm 30.9 kg/m2 68156.6 3 g 20 /min 98 % 98 % 76 /min Rodney Glaser MA [facility] 14:54:20 Date Recorded Body weight Body mass index (BMI) Body height Heart rate Oxygen saturation Oxygen saturation in Arterial blood by Pulse oximetry Systolic blood pressure Diastolic blood pressure Provider Name and Address Organization Details Last Updated DateTime 4 60747.7 3 g 35.8 kg/m2 162.56 cm 85 /min 98 % 98 % 124 mm[Hg] 70 mm[Hg] Arpita Lugo MA [facility] 4 15:44:30 Date Recorded Body height Body mass index (BMI) Body weight Oxygen saturation Oxygen saturation in Arterial blood by Pulse oximetry Heart rate Respiratory rate Systolic blood pressure Diastolic blood pressure Provider Name and Address Organization Details Last Updated DateTime 4 162.56 cm 34.5 kg/m2 26060.0 7 g 97 % 97 % 95 /min 20 /min 128 mm[Hg] 82 mm[Hg] Rodney Glaser MA [facility] 4 11:41:58 Social History Question Answer Notes LastModified by Organizat ion Details LastModified Time Tobacco Smoking Status Never Smoker Arpita Lugo MA null, [facility] 02/23/2024 15:38:32 Do You Have An Advance [...] use any illicit or recreational drugs? No Information not available 02/23/2024 Do you or have you ever used any other forms of tobacco or nicotine? No Information not available 02/23/2024 What is your level of alcohol consumption? Moderate Information not available 02/23/2024 Are you currently employed? No Information not available 02/23/2024 Are you able to care for yourself? Yes Information n ot available 02/23/2024 What is your exercise level? None Information not available 02/23/2024 Mental Status Question Answer Note LastModified by Organization D etails LastModified Time Do you feel stressed (tense, restless, nervous, or anxious, or unable to sleep at night)? [id number] Information not available 02/23/2024 Family History Relationship Description Onset Age of this Age Resolved Age Notes LastModified by Organization Details LastModified Time Father No current problems or disability mebyma Not available 02/22 15:38:07 Mother No current problems or disability mebyma Not available 02/22 15:38:07 Medical History Condition Response High Blood Pressure Y Depression Y Anxiety Disorder Y Muscle, Joint, or Bone Problems Y Acid Reflux (GERD) Y Osteoporosis Y Gynecological History Statement/Question Response Menses Monthly N Obstetrics History GPAL:G 0 P 0 0 0 0 Immunizations Vaccine Type Date Status Note Provider Nam e and Address Organization Details Recorded Time zoster recombinant 1 completed [place]SE [place] [facility] 06/21/2024 16:56:56 zoster recombinant 1 [place] [facility] 06/21/2024 16:56:56 Influenza, high-dose, quadrivalent, PF 2 completed Rodney [place] [facility] 06/21/2024 16:56:56 Influenza, high-dose, quadrivalent, PF 1 completed Rodney [place] [facility] 06/21/2024 16:56:56 Influenza, adjuvanted, quadrivalent, PF 3 completed Rodney [place] [facility] 06/21/2024 16:56:56 COVID-19, mRNA, LNP-S, PF, 30 mcg/0.3 mL dose 1 completed [place] [facility] 06/21/2024 16:56:56 COVID-19, mRNA, LNP-S, PF, 30 mcg/0.3 mL dose 1 [place] [facility] 06/21/2024 16:56:56 COVID-19, mRNA, LNP-S, PF, 30 mcg/0.3 mL dose 1 [place] [facility] 06/21/2024 16:56:56 Pneumococcal conjugate PCV20, polysaccharide [id number] conjugate, adjuvant, PF 2 completed [place] [facility] 06/21/2024 16:56:56 COVID-19, mRNA, LNP-S, PF, 30 mcg/0.3 mL dose, bri-sucrose 2 completed Rodney [place] [facility] 06/21/2024 16:56:56 COVID-19, mRNA, LNP-S, bivalent, PF, 30 mcg/0.3 mL dose 2 completed Rodney [place] [facility] 06/21/2024 16:56:56 RSV, recombinant, protein subunit RSVpreF, adjuvant reconstituted, 0.5 mL, PF 3 completed Rodney [place] [facility] 06/21/2024 16:56:56 COVID-19, mRNA, LNP-S, PF, bri-sucrose, 30 mcg/0.3 mL 3 completed JOSE [place], [place] - [facility] 06/21/2024 16:56:56 Tdap 3 completed JOSE [place] 06/21/2024 16:56:56 Past Encounters Encounter ID Performer Location Encounter Start Date Encounter Closed Date Diagnosis/Indication Diagnosis SNOMED-CT Code Diagnosis ICD10 Code Diagnosis Note [id number] Adrián Khan MD [facility] - Adrián Urban [address] [place] [address] 02/23/2024 15:05:31 02/23/2024 16:24:14 Rheumatoid arthritis 73336220 M06.9 Refer to new rheumatolo gist and check C-reactive protein and sed rate. Patient continues methotrexa te and Plaquenil and prednisone as previously ordered from her rheumatolo gist. She is also taking folic acid 1 mg daily. Mixed anxi ety and depressive disorder 095307144 F41.8 Stable on paroxetine 30 mg daily with no complaint or concerns. Long-term drug therapy 054696133 Z79.899 Routine labs are all due Osteoporosis 95478645 M8 1.0 Continue Fosamax 70 mg weekly. Vitamin-D lab is due Seasonal a llergic rhinitis 343116888 J30.2 Continue montelukas t 10 mg daily and over-the-c ounter antihistam ine daily Cholesterol screening 27 2737770 Z13.220 Fasting lipid panel is due Heart murmur 60407225 R0 1.1 Increase in murmur level noted today on exam. Refer for complete echo Doppler for screening and staging. Body mass index 30+ - obesity [id number] Z68.35 BMI 35.8 Obesity [id number] E66.8 discussed healthy diet, exercise, controllin g carbohydra gerardo and added sugars in the diet Osteoarthritis [id number] M19.90 Underlying arthritis is stable with no acute worsening of symptoms. This is a chronic condition that she is symptomati c of continuall y. Positive s creening for depression on PHQ-9 (Patient Health Questionnaire 9) [id number] 21105 Z13.31 Patient scored 12 on screening today. She does overall feel like her mental health is stable and she is doing well on paroxetine 30 mg daily with no changes made today. [id number] Adrián Khan MD [facility] [address] [place] [address] 06/22/2024 11:19:24 06/22/2024 13:00:48 Rheumatoid arthritis [id number] M06.9 Patient needs a referral to a new rheumatolo gist locally because hers has relocated Mixed anxi ety and depressive disorder [id number] F41.8 Patient is having some increase in anxiety and irritabili ty. She would like to have her Paxil dose increased. We will adjust up to 40 mg daily Osteoporosis [id number] M8 1.0 Continue Fosamax 70 mg weekly. Seasonal a llergic rhinitis 047259251 J30.2 Continue montelukas t 10 mg daily and over-the-c ounter antihistam ine daily Osteoarthritis 838749440 M19.90 Underlying arthritis is stable with no acute worsening of symptoms. This is a chronic condition that she is symptomati c of continuall y. Long-term drug therapy [id number] Z79.899 Body mass index 30+ - obesity 918812862 Z68.35 BMI 35.8 Obesity 764156128 E66.9 discussed healthy diet, exercise, controllin g carbohydra gerardo and added sugars in the diet Elbow fracture 590609426 S42.402D surgical sutures removed in office for Ortho today. removed without difficulty but centrally on incision there is some separation present. no d/c. no erythema or warmth. Steri-stri ps placed. Postoperative state 19573 Z98.890 post of surgical procedure left elbow fx. [id number] Adrián Khan MD [facility] [address] [address] [place] [address] 09/28/2024 13:47:07 09/28/2024 14:39:48 Mixed anxiety and depressive disorder [id number] F41.8 the increase to 40mg of paxil has helped a great amount. Rheumatoid arthritis [id number] Nunez virtual visits at this time, she is now on Xeljanz with her plaquenil. Osteoporosis 42431792 M8 1.0 Continue Fosamax 70 mg weekly. Seasonal a llergic rhinitis 300719143 J30.2 Continue montelukas t 10 mg daily and over-the-c ounter antihistam ine daily Osteoarthritis 888280393 M19.90 Underlying arthritis is stable with no acute worsening of symptoms. This is a chronic condition that she is symptomati c of continuall y. Long-term drug therapy [id number] Z79.899 Body mass index 30+ - obesity 793237861 Z68.35 BMI 32.3 Obesity 670087347 E66.9 Constipation 35012249 K5 9.00 145mcg of linzess was too much, she had diarrhea daily. will decrease to 72mcg daily linzess trial [id number] Adrián Khan MD [facility] [place] [address] [place] [address] 12/22/2024 14:02:29 12/22/2024 15:43:55 Body mass index 30+ - obesity 392550714 Z68.35 BMI 32.3 Obese class I [id number] 57081 E66.811 discussed healthy diet, exercise, controllin g carbohydra gerardo and added sugars in the diet Plain X-ra y result abnormal 629038826 R93.6 Patient needs to reach out to her orthopedic s for proper evaluation into this Paroxysmal supraventricular tachycardia 13952728 I47.10 Noted on her home nursing screening from [facility]. At this time we will refer her for Lexiscan stress testing. First degr ee atrioventricular block [id number] I44.0 Noted on EKG screening Lung funct ion testing abnormal 691404057 R94.2 Refer for complete pulmonary function testing with and without bronchodil ator due to abnormal pulmonary function testing noted on spirometry [facility] Positive s creening for depression on PHQ-9 (Patient Health Questionnaire 9) [id number] 92264 Z13.31 Patient scored 12 on screening today. She does overall feel like her mental health is stable and she is doing well on paroxetine 30 mg daily with no changes made today. Health Concerns Section Related Observation LastModified by Organization Detai ls LastModified Time None Recorded Concern Status LastModified by Organization Details LastModified Time None Recorded Advance Directives Directive Y: Payers Encounter Date Sequence Insurance Name Policy Number Policy Leon Covered Member ID Leon Member ID Guarantor Name 02/23/2024 1 [employer] (MEDICARE REPLACEMENT/ ADVANTAGE - HMO) [id number] Gabriela Chavez [id number] Gabriela Chavez 06/22/2024 1 [employer] (MEDICARE REPLACEMENT/ ADVANTAGE - HMO) [id number] Gabriela Chavez [id number] Gabriela Chavez 09/28/2024 1 [employer] (MEDICARE REPLACEMENT/ ADVANTAGE - HMO) [id number] Gabriela Chavez [id number] Gabriela Chavez 12/22/2024 1 [employer] (MEDICARE REPLACEMENT/ ADVANTAGE - HMO) [id number] Gabriela Chavez [id number] Gabriela Chavez Notes Date Note Type Note Provider Name and Address Organization Details Recorded Time 02/23/2024 text/html Rheumatoid arthritis-patient sees a steam oven operator in [place] but that provider is relocating to a different town and patient desires to find alternate provider. Patient is currently taking Plaquenil and methotrexate and prednisone. osteoarthritis-underly ing osteoarthritis is problematic and chronic. Osteoporosis-history of multiple fractures from falls in the past. Patient is taking Fosamax 70 mg p.o. weekly hx compression fx with vertebroplasty-patient has seen pain management and is currently stable anxiety/depression-pat ient is stable on paroxetine 30 mg daily. No complaints Seasonal allergic rhinitis-patient is taking montelukast 10 mg daily and [id number]-[id number] antihistamine and currently doing well. TOMASA Zhou Attn: Accounting,[address] [place], [address], [facility] 03/14/2024 19:10:25 06/22/2024 text/html Rheumatoid arthritis-patient sees a steam oven operator in [place] but that provider is relocating to a different town and patient desires to find alternate provider. Patient is currently taking Plaquenil and methotrexate. Patient is status post left elbow fracture from a fall in her bathtub and required surgical procedure to stabilize the elbow fracture. She is here today for suture removal and will need to follow-up with orthopedics still to be scheduled. osteoarthritis-underly ing osteoarthritis is problematic and chronic. Osteoporosis-history of multiple fractures from falls in the past. Patient is taking Fosamax 70 mg p.o. weekly hx compression fx with vertebroplasty-patient has seen pain management and is currently stable anxiety/depression-pat ient is stable but would like an increase on her Paxil because she is having some irritability. Seasonal allergic rhinitis-patient is taking montelukast 10 mg daily and jblf-lmr-mfofzwi antihistamine and currently doing well. TOMASA Zhou Attn: Accounting[address] [place], [address], [facility] 06/22/2024 21:36:22 09/28/2024 text/html Rheumatoid arthritis-patient sees a steam oven operator in [place] but that provider is relocating to a different town and patient desires to find alternate provider. Patient is currently taking Plaquenil and methotrexate. Patient is status post left elbow fracture from a fall in her bathtub and required surgical procedure to stabilize the elbow fracture. She is here today for suture removal and will need to follow-up with orthopedics still to be scheduled. osteoarthritis-underly ing osteoarthritis is problematic and chronic. Osteoporosis-history of multiple fractures from falls in the past. Patient is taking Fosamax 70 mg p.o. weekly hx compression fx with vertebroplasty-patient has seen pain management and is currently stable anxiety/depression-pat ient is stable but would like an increase on her Paxil because she is having some irritability. Seasonal allergic rhinitis-patient is taking montelukast 10 mg daily and adqw-fon-tghndmq antihistamine and currently doing well. TOMASA Zhou Attn: Accounting[address] [facility], [place], [address], [facility] 10/20/2024 23:28:18 12/22/2024 text/html Patient is here to follow-up on testing that she had completed through home nursing visit. She was found to have some abnormal spirometry but also had an EKG that had some paroxysmal supraventricular tachycardia and a first-degree AV block. She is just told to follow up so she is here today. She also is still struggling with Orthopedics and having potential findings of abnormal x-ray in the shoulder that has already been replaced in the past and she had a fall which may have compromised it causing a possible fracture. TOMASA Zhou Attn: Accounting[address] [place], [address], [facility] 01/03/2025 09:30:29 OBGyn Episode No OBEpisode recorded.
== END 2025-01-28 07:14 | disposition home or self-care (01) ==
PROVIDERS: PCP Physician Assistant; Visit Provider Physician Assistant
DX: I47.10 Supraventricular tachycardia, unspecified (principal)
CPT/HCPCS: 78452; 93017; A9502; J2785

== ENCOUNTER 2025-02-15 10:10 | Outpatient (CLI) | payer MEDICARE, MEDICAID, SELFPAY ==
--- NOTE | ~2025-02-15 | CT_ITS ---
EXAMINATION: CT shoulder LT wo con DATE: 02/15/2025 10:40 INDICATION: Failed orthopedic implant with left shoulder pain TECHNIQUE: High resolution computed tomography (CT) of the left shoulder was performed without intrav enous contrast. Additional sagittal and coronal reconstructions were performed. Automated exposure co ntrol and iterative reconstruction technique were employed. The dose-length product was 677.58 mGy-cm . COMPARISON: None FINDINGS: Mild osteoarthritis at the acromioclavicular joint. Left reverse total shoulder arthroplasty with baylee ented humeral component and screw fixation of the glenoid component. 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 Chronic appearing nonunited fracture extending across the surgical neck of the proximal humerus with separation of the greater tuberosity from the more dis ron humerus and second chronic nonunited fracture extending across the base of the lesser tuberosity which is distracted medially. These appear to be the fracture is present on radiographs dated 02/05/20 19 which preceded the arthroplasty. There is also some separation of the component cement interface w hich can be seen anteriorly, posteriorly and laterally at the proximalmost aspect of the component, a nd anteriorly near the distal tip of the humeral component. Constellation of findings consistent with loosening of the humeral component. No glenohumeral joint effusion. Elevation the left hemidiaphragm and small left pleural effusion. Mild emphysema in the left lung wit h scattered linear discoid atelectasis at the upper and lower lung zones. Atherosclerotic coronary ar allyssa calcifications along with aortic valve and dense mitral annular calcific lesion. No pericardial effusion. No pathologically enlarged pathologically enlarged lymphadenopathy at the left axilla, left hilum or visualized left side of the mediastinum. IMPRESSION: 1. 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 2. Elevation of the left hemidiaphragm and small left pleural effusion. Reviewed, dictated and finalized at location A. IMPRESSION: 1. Reverse left total shoulder arthroplasty with extensive osteolysis and loose marcial of the humeral component and likely chronic nonunited fracture across mally ral neck and base of the lesser tuberosity. 2. Elevation of the left hemidiaphragm and small left pleural effusion.
== END 2025-02-15 10:11 | disposition home or self-care (01) ==
LOC: MICIMG 10:11
PROVIDERS: PCP Physician Assistant; Visit Provider Orthopaedic Surgery
DX: M25.512 Pain in left shoulder (principal); T84.498A Other mechanical complication of other internal orthopedic devices, implants and grafts, initial encounter; S42.302A Unspecified fracture of shaft of humerus, left arm, initial encounter for closed fracture; Z96.612 Presence of left artificial shoulder joint; X58.XXXA Exposure to other specified factors, initial encounter
CPT/HCPCS: 73200

== ENCOUNTER 2025-03-18 08:36 | Outpatient (CLI) | payer MEDICARE, MEDICAID, SELFPAY ==
--- NOTE | ~2025-03-18 | XR_ITS ---
EXAM/ PROCEDURE: XR ankle LT 2V - 03/18/2025 9:17 CDT HISTORY: 74 years old Female with Multiple joint pain COMPARISON: None available TECHNIQUE: Two view(s) FINDINGS/ IMPRESSION: There are no fractures or dislocations.Joint space narrowing, subchondral sclerosis, subchondral cyst formation and osteophyte formation, compatible with mild osteoarthritis. Calcaneal enthesopathy. Reviewed, dictated and finalized at location A.
--- NOTE | ~2025-03-18 | XR_ITS ---
EXAM: XR wrist LT 2V DATE: 03/18/2025 10:12 HISTORY: Multiple joint pain . COMPARISON: X-ray left hand, same date; x-ray left wrist 05/25/2024; x-ray bilateral hands 07/03/2020. FINDINGS: Severely decreased mineralization. No fracture or dislocation. No lytic or blastic lesion. Moderate scattered degenerative changes. Status post partial proximal carpal row resection. No erosi on or periosteal change to suggest inflammatory arthropathy. Soft tissues within normal limits. IMPRESSION: Osteopenia. Moderate-severe polyarticular osteoarthritis left wrist. Reviewed, dictated and finalized at location K. IMPRESSION: Osteopenia. Moderate-severe polyarticular osteoarthritis left wrist .
--- NOTE | ~2025-03-18 | XR_ITS ---
EXAM/ PROCEDURE: XR ankle RT 2V - 03/18/2025 9:17 CDT HISTORY: 74 years old Female with Multiple joint pain COMPARISON: None available TECHNIQUE: Three view(s) FINDINGS/ IMPRESSION: There are no fractures or dislocations.Joint space narrowing, subchondral sclerosis, subchondral cyst formation and osteophyte formation, compatible with moderate osteoarthritis. Probable pes planus. Reviewed, dictated and finalized at location A.
--- NOTE | ~2025-03-18 | XR_ITS ---
EXAM: XR wrist RT 2V DATE: 03/18/2025 10:12 HISTORY: Multiple joint pain . COMPARISON: X-ray hand, same date; x-ray bilateral hands 07/03/2020; x-ray right wrist 01/09/2010. FINDINGS: Severely decreased mineralization. No fracture or dislocation. No lytic or blastic lesion. Scattered arthritic changes throughout the wrist, the subcortical cysts, mostly typical of osteoarth ritis. Subluxation of the second MCP joint. Chronic ulnar styloid erosion. No acute/active erosions o r periosteal change. Soft tissues within normal limits. IMPRESSION: Severe arthritic changes in the right wrist. Overall changes are most typical of osteoart hritis. However, there is chronic ulnar styloid erosion and chronic subluxation at the first MCP join t which could suggest the presence of superimposed inflammatory arthropathy. Reviewed, dictated and finalized at [facility] K. IMPRESSION: Severe arthritic changes in the right wrist. Overall changes are mo st typical of osteoarthritis. However, there is chronic ulnar styloid erosion a nd chronic subluxation at the first MCP joint which could suggest the presence of superimposed inflammatory arthropathy.
--- NOTE | ~2025-03-18 | XR_ITS ---
EXAM/ PROCEDURE: XR elbow LT 2V - 03/18/2025 9:17 CDT HISTORY: 74 years old Female with Multiple joint pain COMPARISON: 05/25/2024 TECHNIQUE: Three view(s) FINDINGS/ IMPRESSION: Status post ORIF of olecranon process of the left ulna. Healing chronic fracture of the proximal left ulnar diaphysis. Bone cement in the humeral shaft. Joint space narrowing, subchondral sclerosis, subchondral cyst form ation and osteophyte formation, compatible with moderate osteoarthritis. Reviewed, dictated and finalized at location A.
--- NOTE | ~2025-03-18 | XR_ITS ---
XR shoulder RT min 2V 03/18/2025 10:12 Indication: Right shoulder pain Procedure: 4 views right shoulder Comparison: No prior studies for comparison. Findings: No acute fracture, subluxation or dislocation. There is mild osteoarthritis of the acromioc lavicular joint. No significant soft tissue abnormality. No foreign bodies. Impression: 1: Mild osteoarthritis of the right acromioclavicular joint. Reviewed, dictated and finalized at location A. Impression: 1: Mild osteoarthritis of the right acromioclavicular joint.
--- NOTE | ~2025-03-18 | XR_ITS ---
XR_KNEE1-2VRT_CR 03/18/2025 10:12 Indication: Joint pain Procedure: 2 views right knee Comparison: No prior studies for comparison. Findings: There are healed proximal tibial and fibular metadiaphyseal fractures. There is a right tot al knee arthroplasty. There are side plate and screws transfixing the proximal tibia. No acute fractu re or genetic malalignment. No significant joint effusion. There is atherosclerosis. Impression: 1: No acute bone or joint abnormality. Reviewed, dictated and finalized at location A. Impression: 1: No acute bone or joint abnormality.
--- NOTE | ~2025-03-18 | XR_ITS ---
EXAM/ PROCEDURE: XR foot RT 2V - 03/18/2025 9:17 CDT HISTORY: 74 years old Female with Multiple joint pain COMPARISON: None available TECHNIQUE: Two view(s) FINDINGS/ IMPRESSION: Diffuse osteopenia limiting evaluation of nondisplaced fracture. Pes planus. There are no fractures or dislocations.Joint space narrowing, subchondral sclerosis, subchondral cyst formation and osteophyte formation, compatible with moderate to severe osteoarthritis. Reviewed, dictated and finalized at location A.
--- NOTE | ~2025-03-18 | XR_ITS ---
EXAM/ PROCEDURE: XR hand LT 2V, XR hand RT 2V - 03/18/2025 9:17 CDT HISTORY: 74 years old Female with Multiple joint pain COMPARISON: None available TECHNIQUE: Two view(s) FINDINGS/ IMPRESSION: Diffuse osteopenia. Probable dislocation of second right carpophalangeal joint. There are no fractures or dislocations.Joint space narrowing, subchondral sclerosis, subchondral cyst formation and osteophyte formation, compatible with moderate osteoarthritis. Reviewed, dictated and finalized at location A.
--- NOTE | ~2025-03-18 | XR_ITS ---
XR hip BI wo pelvis 03/18/2025 10:12 Indication: Joint pain Procedure: 2 views each Comparison: 06/30/2018 Findings: There is a right bipolar femoral hemiarthroplasty which is well seated. Mild osteoarthritis of the left hip. No acute fracture, subluxation or dislocation. Pelvic rings intact. No soft tissue abnormality. Impression: 1: Mild osteoarthritis of the left hip. Reviewed, dictated and finalized at location A. Impression: 1: Mild osteoarthritis of the left hip.
--- NOTE | ~2025-03-18 | XR_ITS ---
XR elbow RT 2V 03/18/2025 10:12 Indication: Joint pain Procedure: 2 views right elbow Comparison: No prior studies for comparison. Findings: No fracture, subluxation or dislocation. No significant joint effusion. No foreign bodies. Impression: 1: No significant bone or joint abnormality. Reviewed, dictated and finalized at location A. Impression: 1: No significant bone or joint abnormality.
--- NOTE | ~2025-03-18 | XR_ITS ---
EXAM/ PROCEDURE: XR shoulder LT min 2V - 03/18/2025 9:17 CDT HISTORY: 74 years old Female with Multiple joint pain COMPARISON: None available TECHNIQUE: Three view(s) FINDINGS/ IMPRESSION: Left shoulder arthroplasty with intact hardware and no loosening. There are no fractures or dislocations.Joint spaces are within normal limits. Reviewed, dictated and finalized at location A.
--- NOTE | ~2025-03-18 | XR_ITS ---
EXAM/ PROCEDURE: XR foot LT 2V - 03/18/2025 9:17 CDT HISTORY: 74 years old Female with Multiple joint pain COMPARISON: None available TECHNIQUE: Two view(s) FINDINGS/ IMPRESSION: Diffuse osteopenia. There are no fractures or dislocations.Joint space narrowing, subchondral sclerosis, subchondral cyst formation and osteophyte formation, compatible with mild osteoarthritis. Calcaneal enthesopathy. Reviewed, dictated and finalized at location A.
--- NOTE | ~2025-03-18 | XR_ITS ---
XR_[id number]_CR 03/18/2025 10:12 Indication: Joint pain Procedure: 2 views left knee Comparison: No prior studies for comparison. Findings: There is a left total knee arthroplasty. Prosthesis well seated. No evidence for loosening. Osteopenia. No acute fracture or traumatic malalignment. Impression: 1: No acute bone or joint abnormality. Reviewed, dictated and finalized at location A. Impression: 1: No acute bone or joint abnormality.
== END 2025-03-18 08:37 | disposition home or self-care (01) ==
PROVIDERS: PCP Physician Assistant; Visit Provider Internal Medicine Rheumatology
DX: M25.50 Pain in unspecified joint (principal); M19.041 Primary osteoarthritis, right hand; M85.832 Other specified disorders of bone density and structure, left forearm; M19.032 Primary osteoarthritis, left wrist; M85.871 Other specified disorders of bone density and structure, right ankle and foot; M85.841 Other specified disorders of bone density and structure, right hand; M85.842 Other specified disorders of bone density and structure, left hand; M85.872 Other specified disorders of bone density and structure, left ankle and foot; M19.011 Primary osteoarthritis, right shoulder; M16.12 Unilateral primary osteoarthritis, left hip
CPT/HCPCS: 73030; 73070; 73100; 73120; 73521; 73560; 73600; 73620

== ENCOUNTER 2025-03-28 13:39 | Outpatient (CLI) | payer MEDICARE, MEDICAID, SELFPAY ==
--- OUTSIDE RECORDS SUMMARY | 2025-03-28 13:47 | XMS_ITS | Clinical Summary ---
Author Organization [facility] Address [address] [place] [id number] Care Team Providers Care Sourcing Coordinator Name Role Phone Unavailable Primary Care Provider [...]
[2025-03-28 14:30] LABS: Potassium 4.6 mmol/L (3.4-5.0)
== END 2025-03-28 13:40 | disposition home or self-care (01) ==
LOC: ANHLAB 13:40
PROVIDERS: PCP Physician Assistant; Visit Provider Physician Assistant
DX: R89.9 Unspecified abnormal finding in specimens from other organs, systems and tissues (principal)
CPT/HCPCS: 36415; 84132